=== PATIENT | female | born 1960 | race Caucasian/White ===

== ENCOUNTER 2016-05-30 06:21 | Emergency (ER) | payer BC ==
[~2016-05-30] VITALS: Ht 170.2 cm; Wt 116.1 kg
[~2016-05-30 06:21] MED LIST: ATOR10TA88 PO; OMEP40CA PO; PROP80TA2 PO; PXL/10 PO; SUMA20SP; SUMA50TA15 PO
[2016-05-30 06:28] VITALS: TEMP 36.4; Ht 170.2 cm; Wt 116.1 kg
[2016-05-30] MEDS ORDERED: INDSR80 PO (06:53)
[2016-05-30] MEDS ORDERED: OMEP40CA41 PO (06:53)
[2016-05-30] MEDS ORDERED: PXL20 PO (06:53)
[2016-05-30] MEDS ORDERED: SODIUM CHLORIDE 0.9% 1000ML 1,000 ML IV STA (06:55)
[2016-05-30] MEDS ORDERED: DiphenhydrAMINE HCL 50 MG/ML VIAL IV STA (06:55)
[2016-05-30] MEDS ORDERED: KETOROLAC TROMETHAMINE 30 MG/ML VIAL IV STA (06:55)
[2016-05-30] MEDS ORDERED: PROCHLORPERAZINE 5 MG/ML 2 ML VIAL IV STA (06:55)
--- NOTE | 2016-05-30 07:12 | EMERGENCY ROOM VISIT NOTE ---
History Report prepared by Scribe: Hawa Neumann Under the Supervision of: Dr. Nedra Brantley M.D. First contact with patient: 06:45 Chief Complaint: HEADACHE Stated Complaint: MIGRAINE, VOMITING History of Present Illness The patient is a 56 year old female who presents to the Emergency Room with complaints of a persistent migraine headache that began early this morning. It woke her up from her sleep. The pain is located through the sides of her head and up the back of her head. She notes that she is photophobic. She also complains of neck pain with movement, nausea, and vomiting. She started to vomit about 3 hours ago. The patient has a history of migraines and her current symptoms feel like previous migraines. She was in the emergency room with a migraine in September 2013 and states that this was her last migraine before today, although she has had a few headaches since then. She has migraine medications at home but did not take anything today due to her vomiting. Denies fevers or other complaints. Source of History: patient Onset: this morning Position: head Quality: other (migraine) Timing: other (persistent) Modifying Factors (Worsening): other (light exposure) Associated Symptoms: + nausea, + neck pain, + vomiting, No fevers Review of Systems See HPI for pertinent positives & negatives. A total of 10 systems reviewed and were otherwise negative. Past Medical & Surgical Medical Problems: (1) Atrial fibrillation Surgical Problems: (1) Hx of cholecystectomy Family History FH: [place] (myocardial infarction) FH: heart disease Social History Smoking Status: Never Smoker Alcohol Use: occasionally Drug Use: none Marital Status: single Housing Status: lives alone Occupation Status: employed Current/Historical Medications Scheduled Atorvastatin (Lipitor), 10 MG PO DAILY Omeprazole (Prilosec), 40 MG PO QPM Paroxetine (Paroxetine HCl), 20 MG PO DAILY Propranolol HCl (Propranolol HCl ER), 80 MG PO QPM Scheduled PRN Sumatriptan Succinate (Imitrex), 50 MG PO UD PRN for Migraine Allergies Coded Allergies: Morphine (Unverified Allergy, Intermediate, GI SYMPTOMS, 05/30/16) Penicillins (Verified Allergy, Unknown, BLEED AND VOMITED, 05/30/16) Physical Exam Vital Signs Date Time Temp Pulse Resp B/P Pulse Ox O2 Delivery O2 Flow Rate FiO2 05/30/16 08:53 90 16 109/68 99 Room Air 05/30/16 07:40 70 16 130/87 100 Nasal Cannula 2.0 05/30/16 07:31 97 Room Air 05/30/16 07:31 100 Nasal Cannula 2.0 05/30/16 07:19 68 05/30/16 07:17 68 16 142/76 97 Room Air 05/30/16 07:16 97 Room Air 05/30/16 06:28 36.4 72 18 141/81 98 Room Air Physical Exam Vital signs reviewed. General: Well-appearing 56 year old female, in some discomfort HEENT: No scleral icterus, PERRLA, neck supple. Atraumatic. Cardiovascular: Regular rate and rhythm, no extra sounds. Pulmonary: Clear to auscultation bilaterally, normal work of breathing. Abdomen: Soft, nontender, nondistended, positive bowel sounds. Musculoskeletal: Atraumatic, no peripheral edema. Neurologic: Patient awake alert and oriented x 3, full strength in all 4 extremities. Cranial nerves 2 through 12 grossly intact. Skin: Warm, dry, no rash Medical Decision & Procedures ER Provider Diagnostic Interpretation: Radiology results as stated below per my review and radiologist interpretation: CT SCAN OF THE BRAIN WITHOUT IV CONTRAST CLINICAL HISTORY: Headache. COMPARISON STUDY: CT of the brain dated 11/10/2008. TECHNIQUE: Unenhanced axial CT scan of the brain is performed from the vertex to the skull base. Automated dose control exposure was utilized. CT DOSE: 614.27 mGy.cm FINDINGS: Brain parenchyma: The brain parenchyma is normal in appearance. There is no hemorrhage, mass effect, or evidence of acute territorial ischemia by CT criteria. King-white matter is preserved. No extra-axial fluid collection is seen. Ventricles, sulci, cisterns: Normal in configuration. Intracranial vasculature: The visualized intracranial vasculature at the skull base is normal in appearance. Calvarium: Unremarkable. Sinuses and mastoids: There is trace mucosal thickening in the right maxillary antrum. The remaining visualized paranasal sinuses are clear. The mastoid air cells are well pneumatized. Orbits: The bony orbits are grossly intact. IMPRESSION: No acute intracranial abnormality. Electronically signed by: Ritchie Ruth M.D. 05/30/2016 7:53 AM Dictated Date/Time: 05/30/2016 7:51 AM Laboratory Results 05/30/16 07:11 Red Blood Count 4.30, Mean Corpuscular Volume 81.9, Mean Corpuscular Hemoglobin 26.0, Mean Corpuscular Hemoglobin Concent 31.8, Mean Platelet Volume 10.2, Neutrophils (%) (Auto) 73.0, Lymphocytes (%) (Auto) 20.0, Monocytes (%) (Auto) 5.0, Eosinophils (%) (Auto) 1.5, Basophils (%) (Auto) 0.4, Neutrophils # (Auto) 5.28, Lymphocytes # (Auto) 1.45, Monocytes # (Auto) 0.36, Eosinophils # (Auto) 0.11, Basophils # (Auto) 0.03 05/30/16 07:11 Test 05/30/16 07:11 White Blood Count 7.24 K/uL (4.8-10.8) Red Blood Count 4.30 M/uL (4.2-5.4) Hemoglobin 11.2 g/dL (12.0-16.0) Hematocrit 35.2 % (37-47) Mean Corpuscular Volume 81.9 fL (80-100) Mean Corpuscular Hemoglobin 26.0 pg (25-34) Mean Corpuscular Hemoglobin Concent 31.8 g/dl (32-36) Platelet Count 277 K/uL (130-400) Mean Platelet Volume 10.2 fL (7.4-10.4) Neutrophils (%) (Auto) 73.0 % Lymphocytes (%) (Auto) 20.0 % Monocytes (%) (Auto) 5.0 % Eosinophils (%) (Auto) 1.5 % Basophils (%) (Auto) 0.4 % Neutrophils # (Auto) 5.28 K/uL (1.4-6.5) Lymphocytes # (Auto) 1.45 K/uL (1.2-3.4) Monocytes # (Auto) 0.36 K/uL (0.11-0.59) Eosinophils # (Auto) 0.11 K/uL (0-0.5) Basophils # (Auto) 0.03 K/uL (0-0.2) RDW Standard Deviation 46.7 fL (36.4-46.3) RDW Coefficient of Variation 15.7 % (11.5-14.5) Immature Granulocyte % (Auto) 0.1 % Immature Granulocyte # (Auto) 0.01 K/uL (0.00-0.02) Anion Gap 9.0 mmol/L (3-11) Est Creatinine Clear Calc Drug Dose 91.1 ml/min Estimated GFR () 80.8 Estimated GFR (Non- 69.7 BUN/Creatinine Ratio 12.4 (10-20) Calcium Level 9.2 mg/dl (8.5-10.1) Total Bilirubin 0.3 mg/dl (0.2-1) Direct Bilirubin < 0.1 mg/dl (0-0.2) Aspartate Amino Transf (AST/SGOT) 24 U/L (15-37) Alanine Aminotransferase (ALT/SGPT) 39 U/L (12-78) Alkaline Phosphatase 90 U/L (45-117) Total Protein 7.9 gm/dl (6.4-8.2) Albumin 3.5 gm/dl (3.4-5.0) Lipase 115 U/L (73-393) Laboratory results per my review. Medications Administered Medications (Trade) Dose Ordered Sig/Katya Route Start Time Stop Time Status Last Admin Dose Admin Prochlorperazine Edisylate (Compazine Inj) 10 mg NOW STAT IV 05/30/16 06:55 05/30/16 06:57 DC 05/30/16 07:14 10 MG Ketorolac Tromethamine (Toradol Inj) 30 mg NOW STAT IV 05/30/16 06:55 05/30/16 06:57 DC 05/30/16 07:15 30 MG Diphenhydramine HCl 25 mg 25 mg NOW STAT IV 05/30/16 06:55 05/30/16 06:57 DC 05/30/16 07:15 25 MG Sodium Chloride (Nss 1000ml) 1,000 ml @ 999 mls/hr Q1H1M STAT IV 05/30/16 06:55 05/30/16 07:55 DC 05/30/16 07:14 999 MLS/HR ED Course 0655: Past medical records reviewed. The patient was evaluated in room B10. A complete history and physical examination was performed. Ordered NSS 1000 ml @ 999 mls/hr IV, Benadryl Inj 25 mg IV, Toradol Inj 30 mg IV, Compazine Inj 10 mg IV. 0850: Upon reevaluation, the patient appeared to have improvement of her symptoms. I discussed findings with the patient. She verbalized agreement of the treatment plan. The patient was discharged home. Medical Decision Headache: Intracranial hemorrhage, intracranial mass, migraine headache, tension headache , sinusitis, meningitis This patient was evaluated and appeared to be in no significant distress. IV access was obtained and laboratory work was drawn. The patient was placed on the cardiac cath lab manager and found to be in a normal sinus rhythm. She was medicated with IV Compazine, IV Benadryl and IV Toradol. Patient was hydrated with normal saline solution. Laboratory work is unrevealing. The patient had significant resolution of her discomfort. CT imaging was performed as the patient has not had a headache in many years and no imaging of the brain recently. This study is negative. She was advised to follow-up with her primary care physician for further management and to return to the ER for worsening of symptoms or any medical concerns. Impression Primary Impression: Headache, migraine Scribe Attestation The scribe's documentation has been prepared under my direction and personally reviewed by me in its entirety. I confirm that the note above accurately reflects all work, treatment, procedures, and medical decision making performed by me. Departure Information Dispostion Home / Self-Care Referrals Angie Nj M.D. (PCP) Patient Instructions My [facility] Additional Instructions Diagnosis: Migraine headache Continue medications as prescribed. If headache recurs. Drink plenty of clear fluids and rest today. Follow-up with your doctor this week for reevaluation. Return to the ER for worsening of symptoms or any medical concerns. Problem Qualifiers Primary Impression: Headache, migraine Migraine type: unspecified Status migrainosus presence: without status migrainosus Intractability: not intractable Qualified Codes: G43.909 - Migraine, unspecified, not intractable, without status migrainosus
[2016-05-30 07:21] LABS: BASO % 0.4 %; BASO ABS # 0.03 K/uL (0-0.2); COMPLETE YES; EOS % 1.5 %; HEMATOCRIT 35.2 % (37-47); IG% 0.1 %; LYMPH ABS # 1.45 K/uL (1.2-3.4); MEAN CELL VOLUME 81.9 fL (80-100); MEAN CORPUSCULAR HGB CONC 31.8 g/dl (32-36); MEAN PLATELET VOLUME 10.2 fL (7.4-10.4); PLATELET COUNT 277 K/uL (130-400); WHITE BLOOD COUNT 7.24 K/uL (4.8-10.8)
[2016-05-30 07:31] VITALS: O2SAT 100
[2016-05-30 07:40] LABS: ALT/SGPT 39 U/L (12-78); AST/SGOT 24 U/L (15-37); BLOOD UREA NITROGEN 12 mg/dl (7-18); BUN/CREATININE RATIO 12.4 (10-20); CALCIUM 9.2 mg/dl (8.5-10.1); CARBON DIOXIDE 25 mmol/L (21-32); CHLORIDE 108 mmol/L (98-107); CREATININE 0.93 mg/dl (0.60-1.20); GLUCOSE 118 mg/dl (70-99); POTASSIUM 4.2 mmol/L (3.5-5.1); SODIUM 142 mmol/L (136-145)
[2016-05-30 07:42] LABS: ALKALINE PHOSPHATASE 90 U/L (45-117)
--- NOTE | 2016-05-30 07:55 | DIAGNOSTIC IMAGING REPORT ---
CT SCAN OF THE BRAIN WITHOUT IV CONTRAST CLINICAL HISTORY: Headache. COMPARISON STUDY: CT of the brain dated 11/10/2008. TECHNIQUE: Unenhanced axial CT scan of the brain is performed from the vertex to the skull base. Automated dose control exposure was utilized. CT DOSE: 614.27 mGy.cm FINDINGS: Brain parenchyma: The brain parenchyma is normal in appearance. There is no hemorrhage, mass effect, or evidence of acute territorial ischemia by CT criteria. King-white matter is preserved. No extra-axial fluid collection is seen. Ventricles, sulci, cisterns: Normal in configuration. Intracranial vasculature: The visualized intracranial vasculature at the skull base is normal in appearance. Calvarium: Unremarkable. Sinuses and mastoids: There is trace mucosal thickening in the right maxillary antrum. The remaining visualized paranasal sinuses are clear. The mastoid air cells are well pneumatized. Orbits: The bony orbits are grossly intact. IMPRESSION: No acute intracranial abnormality. Electronically signed by: Ritchie Ruth M.D. 05/30/2016 7:53 AM Dictated Date/Time: 05/30/2016 7:51 AM
[2016-05-30 08:53] VITALS: BP 109/68; PULSE 90; O2SAT 99
== END 2016-05-30 09:04 | disposition home or self-care (01) ==
LOC: C.EDB 06:24
DX: G43.909 Migraine, unspecified, not intractable, without status migrainosus (principal); I48.91 Unspecified atrial fibrillation; Z90.49 Acquired absence of other specified parts of digestive tract

== ENCOUNTER 2016-08-31 02:23 | Observation (INO) | payer BC ==
[~2016-08-31] VITALS: Ht 170.2 cm; Wt 115.0 kg
[2016-08-31] VITALS (12 sets, daily range): BP systolic 96–128; BP diastolic 52–81; PULSE 62–121; TEMP 36.5–37; O2SAT 95–98; Ht 170.2 cm; Wt 115.0 kg
[~2016-08-31 02:23] MED LIST changes: +ATOR10TA82 PO; -ATOR10TA88 PO; +INDSR80 PO; -OMEP40CA PO; +OMEP40CA41 PO; -PROP80TA2 PO; -PXL/10 PO; +PXL20 PO; -SUMA20SP
[2016-08-31] MEDS ORDERED: SODIUM CHLORIDE 0.9% 1000ML 1,000 ML IV ONE (02:45)
[2016-08-31 02:49] LABS: BASO % 0.9 %; BASO ABS # 0.05 K/uL (0-0.2); COMPLETE YES; EOS % 2.2 %; HEMATOCRIT 35.1 % (37-47); LYMPH % 26.1 %; LYMPH ABS # 1.45 K/uL (1.2-3.4); MEAN CELL VOLUME 84.2 fL (80-100); MEAN CORPUSCULAR HEMOGLOBIN 25.9 pg (25-34); MEAN CORPUSCULAR HGB CONC 30.8 g/dl (32-36); MEAN PLATELET VOLUME 10.3 fL (7.4-10.4); MONO % 5.9 %; NEUT % 64.9 %; PLATELET COUNT 327 K/uL (130-400); RED BLOOD COUNT 4.17 M/uL (4.2-5.4); WHITE BLOOD COUNT 5.55 K/uL (4.8-10.8)
[2016-08-31 03:07] LABS: PROTHROMBIN TIME (PATIENT) 10.3 SECONDS (9.0-12.0)
[2016-08-31 03:10] LABS: ALT/SGPT 84 U/L (12-78); AST/SGOT 70 U/L (15-37); BLOOD UREA NITROGEN 8 mg/dl (7-18); BUN/CREATININE RATIO 9.2 (10-20); CALCIUM 9.2 mg/dl (8.5-10.1); CARBON DIOXIDE 27 mmol/L (21-32); CHLORIDE 107 mmol/L (98-107); CREATININE 0.92 mg/dl (0.60-1.20); GLUCOSE 98 mg/dl (70-99); MAGNESIUM 2.4 mg/dl (1.8-2.4); SODIUM 143 mmol/L (136-145)
[2016-08-31] MEDS ORDERED: ASPIRIN 324 MG CHEW PO STA (03:20)
[2016-08-31 03:22] LABS: ALB/GLOB RATIO 0.7 (0.9-2); ALKALINE PHOSPHATASE 105 U/L (45-117); CKMB/CK RATIO 1.2 (0-3.0)
[2016-08-31] MEDS ORDERED: ONDANSETRON INJ 2 MG/ML 2 ML VIAL IV STA (03:29)
[2016-08-31] MEDS ORDERED: NITROGLYCERIN OINT 2% 1GM PACKET EXT ONE (03:30)
[2016-08-31] MEDS ORDERED: OPTIRAY 320 IV PRN (03:45)
[2016-08-31 04:16] LABS: URINE APPEARANCE CLEAR (CLEAR); URINE BILIRUBIN NEG (NEG); URINE COLOR YELLOW; URINE EPITHELIAL CELL AUTO >30 /lpf (0-5); URINE NITRITE NEG (NEG); URINE SPECIFIC GRAVITY 1.014 (1.000-1.030); UROBILINOGEN NEG (NEG); ZZUR CULT IF INDIC CLEAN CATCH NO
[2016-08-31 04:30] LABS: MANUAL MICROSCOPIC REQUIRED? NO; REVIEW REQ? NO
[2016-08-31] MEDS ORDERED: KETOROLAC TROMETHAMINE 30 MG/ML VIAL IV STA (04:46)
[2016-08-31] MEDS ORDERED: TRAMADOL HCL 50 MG TAB PO PRN (05:45)
[2016-08-31] MEDS ORDERED: LORAZEPAM 2 MG/ML 1 ML VIAL IV PRN (05:45)
[2016-08-31] MEDS ORDERED: HYDROmorphone INJ 1 MG/ML SYR IV PRN (05:45)
[2016-08-31] MEDS ORDERED: SODIUM CHLORIDE 0.65% NA SOLN 45 ML (OCEAN) PRN (05:45)
[2016-08-31] MEDS ORDERED: ACETAMINOPHEN 325 MG TAB PO PRN (05:45)
[2016-08-31] MEDS ORDERED: PANTOprazole SOD 40 MG TAB PO STA (05:55)
[2016-08-31] MEDS ORDERED: ACETAMINOPHEN 325 MG TAB PO STA (05:58)
[2016-08-31] MEDS ORDERED: IV FLUIDS COMPLETED PRN (06:30)
--- NOTE | 2016-08-31 06:30 | EMERGENCY ROOM VISIT NOTE ---
History First contact with patient: 02:25 Chief Complaint: CHEST PAIN Stated Complaint: CHEST PAIN Nursing Triage Summary: Chest pain in chest but now is just in the center of her back between shoulders. History of Present Illness The patient is a 56 year old female who presents to the Emergency Room with complaints of chest pain that began in her central and left-sided chest that is radiating to her shoulders. The patient states that her symptoms have been off and on for the past few days. She has not had fever or chills. No shortness of breath. The patient does not have a history of cardiac disease, but states that her father had a heart attack in his 40s. The patient is not diabetic but does have a history of dyslipidemia. She initially thought her symptoms may have been musculoskeletal in nature, and she describes it as a tightness. Her current discomfort is rated a 6/10. She has not taken anything over-the- counter for her discomfort. She has not had similar symptoms in the past. No recent travel history. Review of Systems More than 10 systems were reviewed and otherwise negative with the exception of history of present illness. Past Medical/Surgical History Medical Problems: (1) Atrial fibrillation (2) Chest pain Surgical Problems: (1) Hx of cholecystectomy Family History FH: [place] (myocardial infarction) FH: heart disease Social History Smoking Status: Never Smoker Alcohol Use: occasionally Drug Use: none Marital Status: single Housing Status: lives alone Occupation Status: employed Current/Historical Medications Scheduled Atorvastatin (Lipitor), 10 MG PO DAILY Omeprazole (Prilosec), 40 MG PO QPM Paroxetine (Paroxetine HCl), 20 MG PO DAILY Propranolol HCl (Propranolol HCl ER), 80 MG PO QPM Scheduled PRN Sumatriptan Succinate (Imitrex), 50 MG PO UD PRN for Migraine Allergies Coded Allergies: Morphine (Unverified Allergy, Intermediate, GI SYMPTOMS, 05/30/16) Penicillins (Verified Allergy, Unknown, BLEED AND VOMITED, 05/30/16) Physical Exam Vital Signs Date Time Temp Pulse Resp B/P (MAP) Pulse Ox O2 Delivery O2 Flow Rate FiO2 08/31/16 05:08 98 17 96 08/31/16 05:03 82 13 94 08/31/16 05:01 105/64 08/31/16 04:58 100 12 95 08/31/16 04:53 93 12 95 08/31/16 04:48 95 13 94 08/31/16 04:43 96 16 96 08/31/16 04:38 102 14 96 08/31/16 04:33 76 12 93 08/31/16 04:32 126/56 08/31/16 04:28 82 20 92 08/31/16 04:23 92 14 96 08/31/16 04:18 103 13 94 08/31/16 04:13 105 14 95 08/31/16 04:08 98 12 95 08/31/16 04:03 100 15 96 08/31/16 04:02 122/60 08/31/16 03:38 98 16 96 08/31/16 03:33 98 15 96 08/31/16 03:32 130/77 08/31/16 03:29 146/84 08/31/16 03:28 104 13 96 08/31/16 03:23 98 13 97 08/31/16 03:18 97 16 134/75 95 08/31/16 02:43 94 12 97 08/31/16 02:40 86 08/31/16 02:40 97 Room Air 08/31/16 02:38 91 14 97 08/31/16 02:34 37.0 83 18 127/92 97 Room Air 08/31/16 02:31 127/92 Pain Rating (0-10): 3.0 Physical Exam VITALS: Vitals are noted on the nurse's note and reviewed by myself. Vital signs stable. GENERAL: Well-developed, well-nourished, white female, who is in no acute distress and resting comfortably. Patient is cooperative with the examination. HEAD: Normocephalic atraumatic. NECK: Supple without nuchal rigidity. No lymphadenopathy. No thyromegaly. Cervical spine is nontender. HEART: Regular rate and rhythm without murmurs gallops or rubs. LUNGS: Clear to auscultation bilaterally without wheezes, rales or rhonchi. No retractions or accessory muscle use. ABDOMEN: Positive normal bowel sounds x 4. Soft, nontender, without masses or organomegaly. No guarding or rebound tenderness. MUSCULOSKELETAL: No muscle atrophy, erythema, or edema noted. Full range of motion without joint tenderness in all extremities. Medical Decision & Procedures ER Provider Diagnostic Interpretation: Preliminary Findings Only See Final Report For Complete Findings CTA CHEST: No evidence of acute pulmonary embolism. Thoracic aorta and main pulmonary artery normal in caliber. Mild cardiomegaly without pericardial effusion. Small hiatal hernia. No adenopathy. No airspace consolidation, pleural effusion, or pneumothorax. Minimal scarring/ subsegmental atelectasis in the lingula. Visualized upper abdomen demonstrates previous cholecystectomy. No acute osseous findings. Laboratory Results 08/31/16 02:02 Red Blood Count 4.17, Mean Corpuscular Volume 84.2, Mean Corpuscular Hemoglobin 25.9, Mean Corpuscular Hemoglobin Concent 30.8, Mean Platelet Volume 10.3, Neutrophils (%) (Auto) 64.9, Lymphocytes (%) (Auto) 26.1, Monocytes (%) (Auto) 5.9, Eosinophils (%) (Auto) 2.2, Basophils (%) (Auto) 0.9, Neutrophils # (Auto) 3.60, Lymphocytes # (Auto) 1.45, Monocytes # (Auto) 0.33, Eosinophils # (Auto) 0.12, Basophils # (Auto) 0.05 08/31/16 02:02 Test 08/31/16 02:02 08/31/16 04:00 White Blood Count 5.55 K/uL (4.8-10.8) Red Blood Count 4.17 M/uL (4.2-5.4) Hemoglobin 10.8 g/dL (12.0-16.0) Hematocrit 35.1 % (37-47) Mean Corpuscular Volume 84.2 fL (80-100) Mean Corpuscular Hemoglobin 25.9 pg (25-34) Mean Corpuscular Hemoglobin Concent 30.8 g/dl (32-36) Platelet Count 327 K/uL (130-400) Mean Platelet Volume 10.3 fL (7.4-10.4) Neutrophils (%) (Auto) 64.9 % Lymphocytes (%) (Auto) 26.1 % Monocytes (%) (Auto) 5.9 % Eosinophils (%) (Auto) 2.2 % Basophils (%) (Auto) 0.9 % Neutrophils # (Auto) 3.60 K/uL (1.4-6.5) Lymphocytes # (Auto) 1.45 K/uL (1.2-3.4) Monocytes # (Auto) 0.33 K/uL (0.11-0.59) Eosinophils # (Auto) 0.12 K/uL (0-0.5) Basophils # (Auto) 0.05 K/uL (0-0.2) RDW Standard Deviation 50.2 fL (36.4-46.3) RDW Coefficient of Variation 16.4 % (11.5-14.5) Immature Granulocyte % (Auto) 0.0 % Immature Granulocyte # (Auto) 0.00 K/uL (0.00-0.02) Prothrombin Time 10.3 SECONDS (9.0-12.0) Prothromb Time International Ratio 1.0 (0.9-1.1) Activated Partial Thromboplast Time 25.8 SECONDS (21.0-31.0) Partial Thromboplastin Ratio 1.0 D-Dimer 610 ug/L FEU (0-500) Anion Gap 9.0 mmol/L (3-11) Est Creatinine Clear Calc Drug Dose 92.0 ml/min Estimated GFR () 81.8 Estimated GFR (Non- 70.6 BUN/Creatinine Ratio 9.2 (10-20) Calcium Level 9.2 mg/dl (8.5-10.1) Magnesium Level 2.4 mg/dl (1.8-2.4) Total Bilirubin 0.2 mg/dl (0.2-1) Aspartate Amino Transf (AST/SGOT) 70 U/L (15-37) Alanine Aminotransferase (ALT/SGPT) 84 U/L (12-78) Alkaline Phosphatase 105 U/L (45-117) Total Creatine Kinase 155 U/L (26-192) Creatine Kinase MB 1.8 ng/ml (0.5-3.6) Creatine Kinase MB Ratio 1.2 (0-3.0) Total Protein 8.2 gm/dl (6.4-8.2) Albumin 3.5 gm/dl (3.4-5.0) Globulin 4.7 gm/dl (2.5-4.0) Albumin/Globulin Ratio 0.7 (0.9-2) Lipase 117 U/L (73-393) Thyroid Stimulating Hormone (TSH) 4.290 uIu/ml (0.300-4.500) Chemistry Specimen Hemolysis Urine Color YELLOW Urine Appearance CLEAR (CLEAR) Urine pH 8.0 (4.5-7.5) Urine Specific [place] 1.014 (1.000-1.030) Urine Protein NEG (NEG) Urine Glucose (UA) NEG (NEG) Urine Ketones NEG (NEG) Urine Occult Blood NEG (NEG) Urine Nitrite NEG (NEG) Urine Bilirubin NEG (NEG) Urine Urobilinogen NEG (NEG) Urine Leukocyte Esterase TRACE (NEG) Urine WBC (Auto) 1-5 /hpf (0-5) Urine RBC (Auto) 0-4 /hpf (0-4) Urine Hyaline Casts (Auto) 1-5 /lpf (0-5) Urine Epithelial Cells (Auto) >30 /lpf (0-5) Urine Bacteria (Auto) NEG (NEG) Medications Administered Medications (Trade) Dose Ordered Sig/Katya Route Start Time Stop Time Status Last Admin Dose Admin Sodium Chloride 1,000 ml @ 999 mls/hr Q1H1M ONCE IV 08/31/16 02:45 08/31/16 03:45 DC 08/31/16 02:44 999 MLS/HR Aspirin (Aspirin Chew) 324 mg NOW STAT PO 08/31/16 03:20 08/31/16 03:21 DC 08/31/16 03:28 324 MG Nitroglycerin (Nitroglycerin 2% Oint) 1 inch NOW ONCE EXT 08/31/16 03:30 08/31/16 03:31 DC 08/31/16 03:28 1 INCH Ondansetron HCl (Zofran Inj) 4 mg NOW STAT IV 08/31/16 03:29 08/31/16 03:30 DC 08/31/16 03:35 4 MG Ketorolac Tromethamine (Toradol Inj) 30 mg NOW STAT IV 08/31/16 04:46 08/31/16 04:47 DC 08/31/16 05:11 30 MG ED Course Physical exam and history were performed. Nursing notes and EMR were reviewed. Patient appears to have vague chest pain and tightness that is radiating between her shoulder blades. She has a very strong family history of cardiac disease. EKG was performed and was normal sinus rhythm without acute ST elevation. IV access was established and labs were obtained. The patient was hydrated with normal saline. On my initial presentation her pain had resolved was rated a 0/10. The patient's blood work is as above and was reviewed. She does not have a significantly elevated white blood cell count, gross anemia, bandemia, or significant electrolyte imbalance. Lipase and transaminases are nondiagnostic, although her transaminases are slightly elevated of unknown significance. The patient's troponin 1 is negative. D-dimer was elevated. CT scan of the chest was performed to rule out pulmonary embolism, and CT scan does not show acute findings. The patient did have a return of her chest pain while here in the department and nursing did perform a repeat EKG. This is slightly different from her initial EKG, and raises my concern for possible cardiac etiology of her chest pain. I did give the patient aspirin and Nitropaste after this, and these did resolve her symptoms. The case was discussed with the on-call hospitalist who agreed to evaluate the patient here in the department. Please see their dictation for patient course, plan, and disposition. The chart was completed utilizing [employer] Speech Voice Recognition Software. Grammatical errors, random word insertions, pronoun errors, and incomplete sentences are an occasional consequence of this system due to software limitations, ambient noise, and hardware issues. Any formal questions or concerns about the content, text, or information contained within the body of this dictation should be directly addressed to the provider for clarification. . Medical Decision Differential diagnosis includes, but is not limited to: Myocardial infarction, dysrhythmia, pericarditis, pneumothorax, aortic aneurysm/dissection, DVT/PE, anxiety, GERD, PUD, electrolyte imbalance, thyroid disorder, pneumonia, bronchitis, pancreatitis, and others Impression Primary Impression: Chest pain Departure Information Dispostion Still a Patient Referrals Angie Nj M.D. (PCP) Forms HOME CARE DOCUMENTATION FORM, IMPORTANT VISIT INFORMATION Patient Instructions My [facility]
[2016-08-31] MEDS: SODIUM CHLORIDE 0.45% 1000ML 1,000 ML IV SCH (06:31)
--- NOTE | 2016-08-31 06:45 | HISTORY & PHYSICAL EXAMINATION ---
DATE OF ADMISSION: 08/31/2016 PRIMARY CARE PHYSICIAN: Dr. Nj. CHIEF COMPLAINT: Chest pain. HISTORY OF PRESENT ILLNESS: Hx obtained from px and records. Medical history significant for situational HTN, migraine, chronic anemia ( baseline hemoglobin 10-11), GERD, hyperlipidemia. Patient was at work last night at the [employer] when she experienced epigastric discomfort, burning going up her chest and her back w/ some shortness of breath. Similar to heartburn symptoms. Subsequent emesis and nasal congestion. Good BM. Pain not worse w/ motion. Patient has been missing her home nighttime PPI since she shifted to night work since her mom moved in with her the last few months. Some stress from change. When she got home, she became more anxious, sweaty, increased discomfort. At the Emergency Room some relief with aspirin and nitro. MEDICAL HISTORY: Patient had an outpatient stress test in October 2015, exercise capacity below average. EGD 2016 showed some hiatal hernia and some gastritis. Colonoscopy in 2014, normal. abd US 2009 : fatty liver SURGERIES: Cholecystectomy. HOME MEDICATIONS: Include atorvastatin, paroxetine, omeprazole, sumatriptan, ALLERGIES: AMOXICILLIN, DARVOCET, MORPHINE. FAMILY HISTORY: Heart disease. PERSONAL AND SOCIAL HISTORY: Nonsmoker, no ETOH intake, [employer] employee. REVIEW OF SYSTEMS: As per HPI, all other ROS negative. PHYSICAL EXAMINATION: VITAL SIGNS: Blood pressure was noted to be 127/70, pulse rate 70 RR 18 T 37 O2sats 97% on room air. GENERAL: Obese, slightly anxious, hyponasal voice. SKIN: Pallor. HEENT : pale palp conjunctivae, dry mucosa. NECK: Short. LUNGS: Decreased breath sounds. HEART: Regular rate and rhythm. ABDOMEN: Epigastric tenderness. EXTREMITIES: min LE edema, no tenderness. NEUROLOGIC: No gross focality. LABS: Hemoglobin 10.8, white cell 5.5, platelets 237. Sodium 140, potassium 4, chloride 107, CO2 of 27, BUN 8, creatinine 0.9, glucose 90. AST 70, ALT 84. EKG as per my interpretation : normal sinus rhythm, rate 90, T-wave flattening in some leads. CT chest, no PE. ASSESSMENT: 1. Atypical chest pain likely from GERD, missed home PPI night doses given recent change to nightshift work ro biliary etio for symptoms w/ abn LFTS (epigastric pain going to the chest and and back; hx fatty liver on outpx US 2009) ? retained gallstones ro acute coronary syndrome. 2. Hyperlipidemia on statin therapy. 3. Chronic anemia, hemoglobin at baseline. PLAN: Observation PCU pharmacologic stress test in the morning if next troponin and biliary US normal. (suboptimal outpx exercise stress echo 2015) Aspirin for CAD prevention until ACS ruled out. facilitate home PPI ([px advised to change to AM dosing from hereon to facilitate compliance given new work sked) DVT prophylaxis with Lovenox subQ. Full code. MTDD
--- NOTE | 2016-08-31 06:59 | DIAGNOSTIC IMAGING REPORT ---
CT ANGIOGRAPHY OF THE CHEST, PULMONARY EMBOLUS PROTOCOL CLINICAL HISTORY: Chest pain and elevated d-dimer. COMPARISON STUDY: Chest radiograph August 31, 2016. TECHNIQUE: Following IV administration of 91 mL of Optiray-320, helical axial images of the chest were obtained utilizing the pulmonary embolus protocol. Maximal intensity projections and sagittal and coronal reformats were viewed on an independent 3D workstation. IV contrast was administered without complication. CT DOSE: 661.43 mGy.cm FINDINGS: No pulmonary emboli are identified. The heart is mildly enlarged. There is no evidence of thoracic aortic dissection. There is no pericardial effusion. No enlarged axillary, mediastinal or hilar lymph nodes are present. There is no pneumomediastinum. There is no consolidation to suggest pneumonia. Lingular and right middle lobe opacity reflects atelectasis. Bony thorax is unremarkable as is the upper abdomen. The gallbladder is surgically absent. IMPRESSION: 1. No pulmonary emboli identified. 2. No acute intrathoracic findings. 3. Mild cardiomegaly. Electronically signed by: Arnaldo Dawson M.D. 08/31/2016 6:58 AM Dictated Date/Time: 08/31/2016 6:53 AM
--- NOTE | 2016-08-31 07:04 | DIAGNOSTIC IMAGING REPORT ---
CHEST 2 VIEWS ROUTINE CLINICAL HISTORY: Mid chest pain. COMPARISON STUDY: Chest radiograph November 02, 2015. FINDINGS: There is no pneumothorax or pleural effusion. Linear left lower lung opacity suggests atelectasis. There is no evidence of pulmonary edema. Borderline cardiomegaly is noted. There are cholecystectomy clips. There is no consolidation to suggest pneumonia. IMPRESSION: No acute cardiopulmonary findings. Electronically signed by: Arnaldo Dawson M.D. 08/31/2016 7:02 AM Dictated Date/Time: 08/31/2016 7:02 AM
[2016-08-31 07:32] LABS: CHOLESTEROL 177 mg/dl (0-200); CHOLESTEROL/HDL RATIO 3.6; HDL CHOLESTEROL 49 mg/dl; LDL CHOLESTEROL CALCULATED 117 mg/dl; TRIGLYCERIDES 53 mg/dl (0-150); VERY LOW DENSITY LIPOPROT CALC 11 mg/dl
[2016-08-31] MEDS ORDERED: ENOXAPARIN 40 MG/0.4 ML SYR SC SCH (09:00)
[2016-08-31] MEDS: ATORVASTATIN 10 MG TAB PO SCH (09:00)
--- NOTE | 2016-08-31 09:32 | DIAGNOSTIC IMAGING REPORT ---
ABDOMINAL ULTRASOUND, RIGHT UPPER QUADRANT HISTORY: Generalized abdominal pain.. COMPARISON: Abdomen and pelvis CT 09/24/2009. FINDINGS: Pancreas: The pancreas demonstrates a normal echotexture. Liver: Unremarkable. Gallbladder: The gallbladder is surgically absent. CBD: 6 mm. Right kidney: No hydronephrosis. IMPRESSION: No significant abnormality identified within the right upper quadrant. Cholecystectomy. Electronically signed by: Jamie De La Garza M.D. 08/31/2016 9:30 AM Dictated Date/Time: 08/31/2016 9:25 AM
--- NOTE | 2016-08-31 12:31 | Discharge Instructions ---
Discharge Instructions Date of Service Aug 31, 2016. Admission Reason for Admission: Chest Pain Discharge Discharge Diagnosis / Problem: CHEST PAIN Discharge Goals Goal(s): Decrease discomfort, Diagnostic testing, Therapeutic intervention Activity Recommendations Activity Limitations: resume your previous activity . Instructions / Follow-Up Instructions / Follow-Up HOSPITAL FOLLOW UP : 09/06/2016 @ 11:[address] Angie Nj MD Family [facility] Current Hospital Diet Patient's current hospital diet: Discharge Diet Recommended Diet: AHA Diet (Heart Healthy), Low Fat Diet Pending Studies Studies pending at discharge: no Laboratory Results Lipid Panel Test 08/31/16 06:38 Range/Units Triglycerides Level 53 0-150 mg/dl Cholesterol Level 177 0-200 mg/dl HDL Cholesterol 49 mg/dl Cholesterol/HDL Ratio 3.6 LDL Cholesterol, Calculated 117 mg/dl Medical Emergencies . Who to Call and When: Medical Emergencies: If at any time you feel your situation is an emergency, please call 911 immediately. . Non-Emergent Contact Non-Emergency issues call your: Primary Care Provider . . "Provider Documentation" section prepared by Ellyn Herbert. . VTE Core Measure Inpt VTE Proph given/why not?: Unfractionated heparin SQ
[2016-08-31] MEDS: ACETAMINOPHEN 325 MG TAB PO PRN ×2 (12:33→13:40)
[2016-08-31] MEDS: ONDANSETRON INJ 2 MG/ML 2 ML VIAL IV PRN ×2 (13:19→19:17)
--- NOTE | 2016-08-31 15:06 | ECHOCARDIOGRAM REPORT ---
*NOTICE TO RECEIVING REPUBLICAN AGENCY This information is strictly Confidential and protected under [place] law. [place] law prohibits you from making any further disclosure of this information unless further disclosure is expressly permitted by the written consent of the person to whom it pertains or is authorized by law. A general authorization for the release of medical or other information is not sufficient for this purpose. Hospital accepts no responsibility if the information is made available to any other person, INCLUDING THE PATIENT. Interpretation Summary * Name: VIPUL FARRAR Study Date: 08/31/2016 12:25 PM BP: 96/52 mmHg * Patient Location: C.2T\S\S238\S\1 HR: 67 * : 1960 (M/d/yyyy) Gender: Female Height: 67 in * Age: 56 yrs Ethnicity: [place] Weight: 253 lb * Ordering Physician: Ellyn Herbert * Referring Physician: Self, Referred * Performed By: Brittanie Parry RCS * * Reason For Study: CHEST PAIN * BSA: 2.2 m2 * -- Conclusions -- * The left ventricle is normal in size. * Left ventricular systolic function is normal. * Ejection Fraction = 55-60%. * The right ventricular systolic function is normal. * The left atrial size is normal. * Right atrial size is normal. * There is mild mitral regurgitation. * There is mild to moderate tricuspid regurgitation. Procedure Details * Left Ventricle The left ventricle is normal in size. There is normal left ventricular wall thickness. Ejection Fraction = 55-60%. Left ventricular systolic function is normal. The left ventricular wall motion is normal. * Right Ventricle The right ventricle is normal size. The right ventricular systolic function is normal. * Atria The left atrial size is normal. Right atrial size is normal. The interatrial septum is intact with no evidence for an atrial septal defect. * Mitral Valve The mitral valve anatomy is normal. There is mild mitral regurgitation. * Tricuspid Valve The tricuspid valve is not well visualized, but is grossly normal. There is mild to moderate tricuspid regurgitation. * Aortic Valve The aortic valve is tricuspid. The leaflet thickness if normal. There is no aortic stenosis, and no significant insufficiency. The aortic valve opens well. There is no significant aortic regurgitation. * Pulmonic Valve The pulmonic valve is not well visualized. * Great Vessels The aortic root and proximal ascending aorta are normal sized. * Pericardium/Pleural There is no pericardial effusion. * * MMode 2D Measurements and Calculations * IVSd 1.5 cm * IVSs 1.2 cm * * LVIDd 5.0 cm * LVIDs 3.5 cm * LVPWd 1.2 cm * LVPWs 1.6 cm * * IVS/LVPW 1.3 * FS 29.7 % * EDV(Teich) 115.6 ml * ESV(Teich) 50.2 ml * EF(Teich) 56.6 % * * EDV(cubed) 121.4 ml * ESV(cubed) 42.2 ml * EF(cubed) 65.3 % * % IVS thick -15.97 % * % LVPW thick 35.4 % * * LV mass(C)d 260.1 grams * LV mass(C)dI 116.4 grams/m\S\2 * LV mass(C)s 170.8 grams * LV mass(C)sI 76.4 grams/m\S\2 * * CO(Teich) 4.1 l/min * CI(Teich) 1.8 l/min/m\S\2 * SV(Teich) 65.4 ml * SI(Teich) 29.3 ml/m\S\2 * CO(cubed) 4.9 l/min * CI(cubed) 2.2 l/min/m\S\2 * SV(cubed) 79.2 ml * SI(cubed) 35.5 ml/m\S\2 * * Ao root diam 3.2 cm * Ao root area 8.3 cm\S\2 * ACS 2.0 cm * * asc Aorta Diam 3.4 cm * * LVOT diam 2.0 cm * LVOT area 3.2 cm\S\2 * * LVAd ap4 33.5 cm\S\2 * LVLd ap4 8.1 cm * EDV(MOD-sp4) 113.0 ml * LVAs ap4 19.6 cm\S\2 * LVLs ap4 7.0 cm * ESV(MOD-sp4) 48.0 ml * EF(MOD-sp4) 57.5 % * * LVAd ap2 32.2 cm\S\2 * LVLd ap2 8.1 cm * EDV(MOD-sp2) 107.0 ml * LVAs ap2 19.1 cm\S\2 * LVLs ap2 6.7 cm * ESV(MOD-sp2) 46.0 ml * EF(MOD-sp2) 57.0 % * * CO(MOD-sp4) 4.0 l/min * CI(MOD-sp4) 1.8 l/min/m\S\2 * SV(MOD-sp4) 65.0 ml * SI(MOD-sp4) 29.1 ml/m\S\2 * * CO(MOD-sp2) 3.8 l/min * CI(MOD-sp2) 1.7 l/min/m\S\2 * SV(MOD-sp2) 61.0 ml * SI(MOD-sp2) 27.3 ml/m\S\2 * * * * * * Doppler Measurements and Calculations * MV E max helga 104.6 cm/sec * MV A max helga 86.4 cm/sec * * MV E/A 1.2 * * MV P1/2t max helga 107.8 cm/sec * MV P1/2t 39.3 msec * MVA(P1/2t) 5.6 cm\S\2 * MV dec slope 803.8 cm/sec\S\2 * MV dec time 0.19 sec * * Ao V2 max 125.7 cm/sec * Ao max PG 6.3 mmHg * Ao max PG (full) 1.4 mmHg * LEON(V,A) 2.8 cm\S\2 * LEON(V,D) 2.8 cm\S\2 * * LV V1 max PG 4.9 mmHg * * LV V1 max 110.4 cm/sec * * PA V2 max 64.2 cm/sec * PA max PG 1.6 mmHg * * *
[2016-08-31] MEDS ORDERED: ALUMINUM/MAGNESIUM/SIMETH (MAALOX MAX) 30 ML UDC PO PRN (16:00)
[2016-08-31] MEDS ORDERED: PROPRANOLOL HCL 80 MG LA CAP PO SCH (21:00)
[2016-09-01 00:21] VITALS: BP 122/76; PULSE 68; TEMP 36.4; O2SAT 95
--- NOTE | 2016-09-01 00:26 | Progress Note ---
Progress Note Date of Service Sep 01, 2016. Progress Note ATTENDING ADDENDUM ; pt admitted with atypical chest pain more due GI symptom RUQ usg was wnl ordered for Dobutamine stress test pt developed severe headache , nausea /vomiting prior to Dobutamine administration stress test was cancelled pt seen after arriving to floor headache , nausea improved after having meal feels extremely weak and exhausted pt is counselled regarding her symptom possible non cardiac will observe overnight possible discharge home in AM will need out pt Dobutamine stress test to be arranged
[2016-09-01] MEDS: SODIUM CHLORIDE 0.45% 1000ML 1,000 ML IV SCH (02:30)
[2016-09-01 06:58] VITALS: BP 110/68; PULSE 72; TEMP 36.5; O2SAT 96
[2016-09-01 07:56] VITALS: BP 114/73; PULSE 62; TEMP 36.6; O2SAT 96
[2016-09-01] MEDS: ATORVASTATIN 10 MG TAB PO SCH (08:24)
[2016-09-01] MEDS: ACETAMINOPHEN 325 MG TAB PO PRN (08:26)
[2016-09-01] MEDS ORDERED: PANTOprazole SOD 40 MG TAB PO SCH (09:00)
[2016-09-01] MEDS ORDERED: ASPIRIN 81 MG ECTAB PO SCH (09:00)
[2016-09-01 09:02] VITALS: O2SAT 96
[2016-09-01] MEDS ORDERED: NURSING VERBAL MED ORDER ONE ×2 (10:30→11:15)
[2016-09-01] MEDS ORDERED: SUMATRIPTAN SUCCINATE 50 MG TAB PO ONE (11:00)
[2016-09-01 15:11] VITALS: BP 132/83; PULSE 68; TEMP 36.7; O2SAT 97
--- NOTE | 2016-09-01 16:52 | Discharge Summary ---
Discharge Summary Date of Service Sep 01, 2016. Discharge Summary Admission Date: Aug 31, 2016 at 05:08 Discharge Date: Sep 01, 2016 Discharge Disposition: Home Principal Diagnosis: CHEST PAIN Procedures: ECHO : The left ventricle is normal in size. Left ventricular systolic function is normal. Ejection Fraction = 55-60%. The right ventricular systolic function is normal. The left atrial size is normal. Right atrial size is normal. There is mild mitral regurgitation. There is mild to moderate tricuspid regurgitation. ABDOMINAL ULTRASOUND, RIGHT UPPER QUADRANT HISTORY: Generalized abdominal pain.. COMPARISON: Abdomen and pelvis CT 09/24/2009. FINDINGS: Pancreas: The pancreas demonstrates a normal echotexture. Liver: Unremarkable. Gallbladder: The gallbladder is surgically absent. CBD: 6 mm. Right kidney: No hydronephrosis. IMPRESSION: No significant abnormality identified within the right upper quadrant. Cholecystectomy. CT ANGIOGRAPHY OF THE CHEST, PULMONARY EMBOLUS PROTOCOL CLINICAL HISTORY: Chest pain and elevated d-dimer. COMPARISON STUDY: Chest radiograph August 31, 2016. TECHNIQUE: Following IV administration of 91 mL of Optiray-320, helical axial images of the chest were obtained utilizing the pulmonary embolus protocol. Maximal intensity projections and sagittal and coronal reformats were viewed on an independent 3D workstation. IV contrast was administered without complication. CT DOSE: 661.43 mGy.cm FINDINGS: No pulmonary emboli are identified. The heart is mildly enlarged. There is no evidence of thoracic aortic dissection. There is no pericardial effusion. No enlarged axillary, mediastinal or hilar lymph nodes are present. There is no pneumomediastinum. There is no consolidation to suggest pneumonia. Lingular and right middle lobe opacity reflects atelectasis. Bony thorax is unremarkable as is the upper abdomen. The gallbladder is surgically absent. IMPRESSION: 1. No pulmonary emboli identified. 2. No acute intrathoracic findings. 3. Mild cardiomegaly. Medication Reconciliation Continued Medications: Atorvastatin (Lipitor) 10 Mg Tab 10 MG PO DAILY, TAB Omeprazole (Prilosec) 40 Mg Cap 40 MG PO QPM Paroxetine (Paroxetine HCl) 20 Mg Tab 20 MG PO DAILY Propranolol HCl (Propranolol HCl ER) 80 Mg Capcr 80 MG PO QPM Sumatriptan Succinate (Imitrex) 50 Mg Tab 50 MG PO UD PRN for Migraine Referrals At Discharge Follow up Referrals: Physician Referral - 09/06/16 with Angie Nj M.D. Admission Information HPI (per Admitting provider): DATE OF ADMISSION: 08/31/2016 PRIMARY CARE PHYSICIAN: Dr. Nj. CHIEF COMPLAINT: Chest pain. HISTORY OF PRESENT ILLNESS: Hx obtained from px and records. Medical history significant for situational HTN, migraine, chronic anemia ( baseline hemoglobin 10-11), GERD, hyperlipidemia. Patient was at work last night at the [employer] when she experienced epigastric discomfort, burning going up her chest and her back w/ some shortness of breath. Similar to heartburn symptoms. Subsequent emesis and nasal congestion. Good BM. Pain not worse w/ motion. Patient has been missing her home nighttime PPI since she shifted to night work since her mom moved in with her the last few months. Some stress from change. When she got home, she became more anxious, sweaty, increased discomfort. At the Emergency Room some relief with aspirin and nitro. MEDICAL HISTORY: Patient had an outpatient stress test in October 2015, exercise capacity below average. EGD 2016 showed some hiatal hernia and some gastritis. Colonoscopy in 2014, normal. abd US 2009 : fatty liver SURGERIES: Cholecystectomy. HOME MEDICATIONS: Include atorvastatin, paroxetine, omeprazole, sumatriptan, ALLERGIES: AMOXICILLIN, DARVOCET, MORPHINE. FAMILY HISTORY: Heart disease. PERSONAL AND SOCIAL HISTORY: Nonsmoker, no ETOH intake, [employer] employee. REVIEW OF SYSTEMS: As per HPI, all other ROS negative. Physical Exam (per Admitting): PHYSICAL EXAMINATION: VITAL SIGNS: Blood pressure was noted to be 127/70, pulse rate 70 RR 18 T 37 O2sats 97% on room air. GENERAL: Obese, slightly anxious, hyponasal voice. SKIN: Pallor. HEENT : pale palp conjunctivae, dry mucosa. NECK: Short. LUNGS: Decreased breath sounds. HEART: Regular rate and rhythm. ABDOMEN: Epigastric tenderness. EXTREMITIES: min LE edema, no tenderness. NEUROLOGIC: No gross focality. Hospital Course no complain of chest pain or SOB , had headache earlier , resolved, no nausea or vomiting feels fine wants to be discharged home P/E: GEN: no sign of distress HEENT : sclera non icteric LUNGS: CTA HT: regular ,, S1 /S2 ABDOMEN: soft, non tender EXT : no lower ext edema NEURO: AAO x3, no focal deficit Last 8 Hrs Date Time Temp Pulse Resp B/P (MAP) Pulse Ox O2 Delivery O2 Flow Rate FiO2 09/01/16 15:11 36.7 68 19 132/83 (99) 97 Room Air A/p CHEST PAIN : pt admitted with atypical chest pain symptom more likely due to GI symptom RUQ usg was wnl ordered for Dobutamine stress test pt developed severe headache , nausea /vomiting prior to Dobutamine administration stress test was cancelled feels much better today no complain of chest pain or discomfort no nausea tolerating diet well mentions of being under lot of stress at home -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 Admission Reason for Admission: Chest Pain Discharge Discharge Diagnosis / Problem: CHEST PAIN Discharge Goals Goal(s): Decrease discomfort, Diagnostic testing, Therapeutic intervention Activity Recommendations Activity Limitations: resume your previous activity . Instructions / Follow-Up Instructions / Follow-Up HOSPITAL FOLLOW UP : 09/06/2016 @ 11:[address] Angie Nj MD Family [facility] Current Hospital Diet Patient's current hospital diet: Discharge Diet Recommended Diet: AHA Diet (Heart Healthy), Low Fat Diet Pending Studies Studies pending at discharge: no Laboratory Results Lipid Panel Test 08/31/16 06:38 Range/Units Triglycerides Level 53 0-150 mg/dl Cholesterol Level 177 0-200 mg/dl HDL Cholesterol 49 mg/dl Cholesterol/HDL Ratio 3.6 LDL Cholesterol, Calculated 117 mg/dl Medical Emergencies . Who to Call and When: Medical Emergencies: If at any time you feel your situation is an emergency, please call 911 immediately. . Non-Emergent Contact Non-Emergency issues call your: Primary Care Provider . . "Provider Documentation" section prepared by Ellyn Herbert. . VTE Core Measure Inpt VTE Proph given/why not?: Unfractionated heparin SQ Additional Copies To Angie Nj M.D.
== END 2016-09-01 18:01 | disposition home or self-care (01) ==
LOC: EDBD 02:23 → C.EDB 02:24 → C.2T 05:08 → ENRESERV 05:16 → C.MS2W 18:12
PROVIDERS: ADMIT Hospitalist; ATTEND Hospitalist
DX: R07.9 Chest pain, unspecified (principal); E78.5 Hyperlipidemia, unspecified; E66.9 Obesity, unspecified; Z90.49 Acquired absence of other specified parts of digestive tract; Z79.899 Other long term (current) drug therapy; Z88.5 Allergy status to narcotic agent; Z88.1 Allergy status to other antibiotic agents; Z88.0 Allergy status to penicillin; Z82.49 Family history of ischemic heart disease and other diseases of the circulatory system

== ENCOUNTER → 2017-05-27 | Outpatient (CLI) | payer BC ==
[~2017-05-27] MED LIST changes: +OPTIRAY 320 IV PRN
--- NOTE | 2017-05-27 07:53 | DIAGNOSTIC IMAGING REPORT ---
CT OF THE ABDOMEN AND PELVIS WITH CONTRAST CLINICAL HISTORY: Supraumbilical hernia. COMPARISON STUDY: CT of the abdomen September 24, 2009 and right upper quadrant ultrasound August 31, 2016. TECHNIQUE: Following IV administration of 116 mL of Optiray-320, axial images of the abdomen and pelvis were obtained from the lung bases to the proximal femurs. Images were reviewed in the axial, sagittal, and coronal planes. IV contrast was administered without complication. A dose lowering technique was utilized adhering to the principles of ALARA. CT DOSE: 1160.40 mGy.cm FINDINGS: Lung bases are clear. There is no biliary ductal dilatation status post cholecystectomy. There is suspected fatty infiltration of the liver. The spleen, adrenal glands and pancreas are normal. There is no pancreatic ductal dilatation. There are small bilateral renal calculi. Less likely, this could reflect excreted contrast. There are no ureteral calculi and there is no hydronephrosis or hydroureter. There is no evidence for a bowel obstruction. The appendix is normal. There is no lymphadenopathy. Note is made of 2 adjacent supraumbilical fat-containing hernias. The hernia defects measure 2.9 cm in transverse dimension. There is a tiny fat-containing umbilical hernia is well. No bowel loops are present within the hernia sac. No suspicious osseous lesions are present. IMPRESSION: 1. Two adjacent fat-containing supraumbilical hernias. Tiny fat-containing umbilical hernia. 2. No bowel obstruction. 3. Suspected fatty infiltration of the liver. Electronically signed by: Arnaldo Dawson M.D. 05/27/2017 7:52 AM Dictated Date/Time: 05/27/2017 7:42 AM
== END | disposition home or self-care (01) ==
LOC: C.CTS 07:18
PROVIDERS: ATTEND Surgery
DX: K43.9 Ventral hernia without obstruction or gangrene (principal)

== ENCOUNTER 2017-07-08 04:55 | Observation (INO) | payer BC ==
[2017-06-18 08:24] VITALS: BMI 42.0
--- NOTE | 2017-06-18 08:51 | PAT Medication Instructions ---
Service Date Jun 18, 2017. Current Home Medication List Atorvastatin (Lipitor), 10 MG PO QPM Fluticasone Propionate (Nasal) (Flonase Allergy Relief), 1 SPRAY FLORES QD PRN for PRN Omeprazole (Prilosec), 40 MG PO QPM Paroxetine (Paroxetine HCl), 20 MG PO QPM Propranolol HCl (Propranolol HCl ER), 80 MG PO QPM Ranitidine Hcl (Zantac), 150 MG PO DAILY PRN for Indigestion Sumatriptan Succinate (Imitrex), 50 MG PO UD PRN for Migraine Tramadol (Ultram), 50 MG PO Q4H PRN for Pain Medication Instructions For Your Scheduled Surgery - Take the following medications the morning of surgery with a sip of water: Fluticasone Propionate (Nasal) (Flonase Allergy Relief), 1 SPRAY FLORES QD PRN for PRN (if needed) Ranitidine Hcl (Zantac), 150 MG PO DAILY PRN for Indigestion (if needed) Sumatriptan Succinate (Imitrex), 50 MG PO UD PRN for Migraine (if needed) Tramadol (Ultram), 50 MG PO Q4H PRN for Pain (if needed, can be taken up to four hours before surgery) - Take the following medications as scheduled the night before surgery: Atorvastatin (Lipitor), 10 MG PO QPM Fluticasone Propionate (Nasal) (Flonase Allergy Relief), 1 SPRAY FLORES QD PRN for PRN (if needed) Omeprazole (Prilosec), 40 MG PO QPM Paroxetine (Paroxetine HCl), 20 MG PO QPM Propranolol HCl (Propranolol HCl ER), 80 MG PO QPM Ranitidine Hcl (Zantac), 150 MG PO DAILY PRN for Indigestion (if needed) Sumatriptan Succinate (Imitrex), 50 MG PO UD PRN for Migraine (if needed) Tramadol (Ultram), 50 MG PO Q4H PRN for Pain (if needed) If you have any questions please call us at [phone] or [phone] or [phone]
[2017-06-18 10:31] LABS: BASO % 1.1 %; BASO ABS # 0.05 K/uL (0-0.2); EOS % 1.3 %; EOS ABS # 0.06 K/uL (0-0.5); HEMATOCRIT 34.9 % (37-47); HEMOGLOBIN 10.5 g/dL (12.0-16.0); LYMPH % 35.8 %; LYMPH ABS # 1.69 K/uL (1.2-3.4); MEAN CELL VOLUME 82.3 fL (80-100); MEAN CORPUSCULAR HEMOGLOBIN 24.8 pg (25-34); MEAN CORPUSCULAR HGB CONC 30.1 g/dl (32-36); MEAN PLATELET VOLUME 10.5 fL (7.4-10.4); MONO % 7.8 %; MONO ABS # 0.37 K/uL (0.11-0.59); NEUT ABS # 2.55 K/uL (1.4-6.5); PLATELET COUNT 315 K/uL (130-400); RED CELL DISTRIBUTION WIDTH CV 16.6 % (11.5-14.5); RED CELL DISTRIBUTION WIDTH SD 50.1 fL (36.4-46.3); WHITE BLOOD COUNT 4.72 K/uL (4.8-10.8)
[2017-06-18 10:37] LABS: CREATININE 0.9 mg/dl (0.60-1.20); POTASSIUM 4.7 mmol/L (3.5-5.1)
[~2017-07-08] VITALS: Ht 170.2 cm; Wt 121.5 kg
[2017-07-08] VITALS (9 sets, daily range): BP systolic 112–130; BP diastolic 70–86; PULSE 65–100; TEMP 36.6–36.9; O2SAT 90–98; Ht 170.2 cm; Wt 121.5 kg
[~2017-07-08 04:55] MED LIST changes: +FLUT0.15 NAE; -OPTIRAY 320 IV PRN; +RANI150T3 PO; +TRAM-10 PO
[2017-07-08] MEDS ORDERED: ACET-1311 PO (05:36)
[2017-07-08] MEDS ORDERED: CLR10 PO (05:36)
[2017-07-08] MEDS ORDERED: LACTATED RINGER'S 1000ML 1,000 ML IV SCH ×2 (06:00→08:04)
[2017-07-08] MEDS ORDERED: CLINDAMYCIN IV 900 MG in DEXTROSE 5% 50ML 50 ML IV SCH (06:00)
[2017-07-08] MEDS ORDERED: LIDOCAINE HCL 2% 2 ML VIAL (20MG/ML) ONE (06:38)
[2017-07-08] MEDS ORDERED: DEXAMETHASONE SOD INJ 4 MG/ML VIAL ONE (06:38)
[2017-07-08] MEDS ORDERED: ONDANSETRON INJ 2 MG/ML 2 ML VIAL ONE (06:38)
[2017-07-08] MEDS ORDERED: PROPOFOL IV EMULSION 10 MG/ML 20 ML VIAL IV ONE (06:38)
[2017-07-08] MEDS ORDERED: FENTANYL CITRATE INJ 50 MCG/1 ML 2 ML VIAL ONE ×2 (06:39→07:22)
[2017-07-08] MEDS ORDERED: MIDAZOLAM HCL 1 MG/ML 2ML VIAL ONE (06:39)
[2017-07-08] MEDS ORDERED: CEFAZOLIN SOD 1 GM VIAL ONE (06:48)
[2017-07-08] MEDS ORDERED: BUPIVACAINE 0.5 % 5 MG/1 ML MPF 30ML VIAL ONE (06:48)
--- NOTE | 2017-07-08 06:50 | History & Physical Bridge Note ---
H&P Re-Evaluation Bridge Note: I have examined the patient, reviewed the History & Physical and in the interval since the performance of the History & Physical I have noted the following changes of clinical significance: No changes noted
[2017-07-08] MEDS ORDERED: RANITIDINE HCL 25 MG/ML INJ ONE (07:28)
[2017-07-08] MEDS ORDERED: METOCLOPRAMIDE HCL INJ 5 MG/ML 2 ML VIAL ONE (07:28)
[2017-07-08] MEDS ORDERED: DiphenhydrAMINE HCL 50 MG/ML VIAL ONE (07:28)
[2017-07-08] MEDS ORDERED: EpHEDrine SULFATE INJ 50 MG/ML AMP IV PRN (07:30)
[2017-07-08] MEDS ORDERED: ONDANSETRON INJ 2 MG/ML 2 ML VIAL IV PRN ×2 (07:30→08:15)
[2017-07-08] MEDS ORDERED: ATROPINE SULFATE 0.1 MG/ML 5ML SYR IV PRN (07:30)
[2017-07-08] MEDS ORDERED: NALOXONE HCL 0.4 MG/1 ML VIAL/CARP IV PRN (07:30)
[2017-07-08] MEDS ORDERED: HYDROmorphone INJ 0.5 MG/0.5 ML SYR IV PRN ×2 (07:30→08:15)
[2017-07-08] MEDS ORDERED: FENTANYL CITRATE INJ 50 MCG/1 ML 2 ML VIAL IV PRN (07:30)
[2017-07-08] MEDS ORDERED: FLUMAZENIL 0.1 MG/1 ML 10 ML VIAL IV PRN (07:30)
[2017-07-08] MEDS ORDERED: PROMETHAZINE HCL INJ 12.5 MG in SODIUM CHLORIDE 0.9% 50ML 50 ML IV PRN (07:30)
[2017-07-08] MEDS ORDERED: LABETALOL HCL IV 5 MG/ML 20ML IV PRN (07:30)
[2017-07-08] MEDS ORDERED: EpHEDrine SULFATE 50MG/5ML SYR ONE (07:41)
[2017-07-08] MEDS ORDERED: KETOROLAC TROMETHAMINE 30 MG/ML VIAL ONE (08:00)
--- NOTE | 2017-07-08 08:03 | [facility] Operative Report ---
Operative Report Operative Date Jul 08, 2017. Pre-Operative Diagnosis Supraumbilical Hernia Post-Operative Diagnosis Supraumbilical Hernias Procedure(s) Performed Laparoscopic Ventral Hernia Repair with Surgimesh Surgeon Dr. Dmitry Vega Welder Tool And Die Surgeon(s) Terell Marr PA-C Estimated Blood Loss mL Findings 2 defects 3-4 cm total, used 12.5 cm surgimesh Specimens No pathology specimens per surgeon Drains None Anesthesia Type General Complication(s) none Disposition Recovery Room / PACU I attest to the content of the Intraoperative Record and any orders documented therein. Any exceptions are noted below.
[2017-07-08] MEDS ORDERED: HYDROmorphone INJ 2 MG/ML SYR/VIAL IV PRN (08:15)
[2017-07-08] MEDS ORDERED: HYDROCODONE/ACETAMIN 5/325MG TAB PO PRN ×2 (08:15)
[2017-07-08] MEDS ORDERED: PROMETHAZINE HCL INJ 25 MG in SODIUM CHLORIDE 0.9% 50ML 50 ML IV PRN (08:15)
--- NOTE | 2017-07-08 08:34 | OPERATIVE REPORT ---
REVISED REPORT DATE OF OPERATION: 07/08/2017 NAME OF OPERATION: Laparoscopic incisional hernia repair. PREOPERATIVE DIAGNOSIS: Incisional hernia x2. POSTOPERATIVE DIAGNOSIS: Incisional hernia x2. STAFF SURGEON: Dmitry Vega MD BENCH LOOM WEAVER: Terell Marr PA-C ANESTHESIA: General. DESCRIPTION OF PROCEDURE: The patient was brought in the operating room and placed on the operating table in supine position. Pneumatic stockings, orogastric tube were placed. Her abdomen was prepped and draped in usual fashion. 0.5% plain Marcaine was used to anesthetize all her incisions. Incision made in the left upper quadrant, carrying dissection down, identifying the fascia, placing a Veress needle producing pneumoperitoneum. An 11 mm port placed in the left upper quadrant and then under visualization, two 5 mm ports were placed on the left lateral and then later in the case two 5 mm ports were placed on the right lateral. On examination, the patient had a preperitoneal adipose tissue within 2 hernia defects. This tissue was mobilized, mobilizing the tissue away from the fascia superiorly and inferiorly to allow for the mesh to be placed against the fascia. A 12.5-cm piece of Surgimesh was obtained, placed into the abdomen. The defects amounted to approximately 3-4 cm in total diameter. The mesh was brought up through a separate stab incision through the sac using a suture passer. The polypropylene was toward the fascia, the silicone was toward the bowel. The mesh was secured in 2 rows using absorbable tacks, 1 outer and 1 inner row. At this point, all ports were removed. Pneumoperitoneum reduced. The fascia in the left upper quadrant closed using interrupted 0 Vicryl suture. Skin reapproximated using subcuticular 4-0 Monocryl and Steri-Strips in left upper quadrant, Dermabond to the other sites. The patient transferred to recovery room in stable condition. I attest to the content of the Intraoperative Record and any orders documented therein. Any exceptions are noted below. ADDENDUM My kennel assistant helped with prepping, draping, exposure of the intra-abdominal space, placement of the mesh, and closure of the wounds. MTDVerónica
--- NOTE | 2017-07-08 09:43 | Anesthesiology Progress Note ---
Anesthesia Post Op Note Date & Time Jul 08, 2017 at 09:43 Vital Signs Pain Intensity: 0 Vital Signs Past 12 Hours Date Time Temp Pulse Resp B/P (MAP) Pulse Ox O2 Delivery O2 Flow Rate FiO2 07/08/17 09:41 123/90 07/08/17 09:39 70 14 07/08/17 09:39 67 14 97 07/08/17 09:36 138/75 07/08/17 09:34 78 16 95 07/08/17 09:34 80 16 07/08/17 09:31 129/71 07/08/17 09:29 78 15 07/08/17 09:29 82 15 92 07/08/17 09:26 103/78 07/08/17 09:24 69 12 07/08/17 09:24 71 12 94 07/08/17 09:21 109/75 07/08/17 09:19 62 14 95 07/08/17 09:19 63 14 07/08/17 09:16 121/70 07/08/17 09:14 82 10 07/08/17 09:14 82 10 93 07/08/17 09:13 68 10 07/08/17 09:13 71 10 95 07/08/17 09:11 118/79 07/08/17 09:08 85 19 93 07/08/17 09:08 83 19 07/08/17 09:06 137/72 07/08/17 09:03 70 16 92 07/08/17 09:03 67 16 07/08/17 09:02 65 16 07/08/17 09:02 66 16 92 07/08/17 09:01 141/68 07/08/17 08:57 62 15 07/08/17 08:57 64 15 93 07/08/17 08:56 141/88 07/08/17 08:53 36.5 75 16 141/88 (100) 96 Nasal Cannula 2 07/08/17 08:53 65 15 95 07/08/17 08:53 64 15 07/08/17 08:51 156/83 07/08/17 08:48 65 14 07/08/17 08:48 60 14 96 07/08/17 08:46 134/80 07/08/17 08:43 69 16 99 07/08/17 08:43 68 16 07/08/17 08:42 151/83 07/08/17 08:42 151/83 07/08/17 08:40 70 14 07/08/17 08:40 73 14 99 07/08/17 08:40 70 14 07/08/17 08:40 73 14 99 07/08/17 08:36 136/93 07/08/17 08:36 136/93 07/08/17 08:35 79 17 94 07/08/17 08:35 74 17 07/08/17 08:35 79 17 94 07/08/17 08:35 74 17 07/08/17 08:31 125/85 07/08/17 08:31 125/85 07/08/17 08:30 79 18 07/08/17 08:30 78 18 91 07/08/17 08:30 79 18 07/08/17 08:30 78 18 91 07/08/17 08:26 158/74 07/08/17 08:26 158/74 07/08/17 08:25 36.2 75 12 125/85 (90) 92 Oxymask 10 07/08/17 05:43 36.9 65 18 119/74 (89) 98 Room Air Notes Mental Status: alert / awake / arousable, participated in evaluation Pt Amnestic to Procedure: Yes Nausea / Vomiting: adequately controlled Pain: adequately controlled Airway Patency, RR, SpO2: stable & adequate BP & HR: stable & adequate Hydration State: stable & adequate Anesthetic Complications: no major complications apparent
--- NOTE | 2017-07-08 11:00 | Medical Consult ---
Consultation Date of Consultation: Jul 08, 2017. Attending Physician: Dmitry Vega M.D. Reason for Consultation: Medical management History of Present Illness Pt is 57 y/o F with PMH migraine, dyslipidemia, chronic anemia, GERD, anxiety seen in medical consult. Patient S/P laparoscopic incisional hernia repair by Dr. Vega this a.m. currently patient states is feeling good, reports only slight abdominal pain and feels like pain is well controlled. Has not urinated or had BM yet after surgery. Reports last BM yesterday. Denies any nausea or vomiting. Is drinking water without difficulty. Denies fever/chills, diaphoresis, CHAVEZ, dizziness, vision changes, neck pain, CP, SOB, palpitations, cough, sore throat, choking, otalgia, rhinorrhea, paresthesias, extremity weakness, extremity edema, rashes, urinary symptoms. Past Medical/Surgical History Medical Problems: (1) Abdominal pain Status: Resolved (2) Anxiety Status: Chronic (3) Chest pain Status: Resolved (4) Dyslipidemia Status: Chronic (5) Elevated blood pressure, situational Status: Chronic (6) GERD (gastroesophageal reflux disease) Status: Chronic (7) Migraine Status: Chronic (8) Small bowel obstruction Status: Resolved Surgical Problems: (1) History of incisional hernia repair Permanent Comment: 07/08/17 - [facility] - Dr Vega Status: Resolved (2) History of tonsillectomy and adenoidectomy Status: Resolved (3) Hx of cholecystectomy Status: Resolved (4) Hx of cholecystectomy Status: Resolved Family History FH: AK (myocardial infarction) FH: heart disease Hypertension Stroke Social History Smoking Status: Never Smoker Smokeless Tobacco Use: No Alcohol Use: occasionally Drug Use: none Marital Status: single Housing Status: lives alone Occupation Status: employed Allergies Coded Allergies: Morphine (Unverified Adverse Reaction, Intermediate, PT STATES IT MAKES HER IRRIATABLE, 07/08/17) Penicillins (Verified Adverse Reaction, Unknown, "WAS NOT EFFECTIVE", ) Propoxyphene (Verified Adverse Reaction, Unknown, SEVERE HEADACHES, 07/08/17 ) Current Inpatient Medications Current Inpatient Medications Medications (Trade) Dose Ordered Sig/Katya Route Start Time Stop Time Status Last Admin Dose Admin Clindamycin Phosphate 900 mg/ Dextrose 56 ml @ 100 mls/hr PREOP IV 07/08/17 06:00 07/08/17 18:00 07/08/17 06:55 100 MLS/HR Lactated Ringer's 1,000 ml @ 15 mls/hr Q24H IV 07/08/17 06:00 07/09/17 05:59 07/08/17 05:55 15 MLS/HR Fentanyl Citrate (Fentanyl Inj) 25 mcg Q5M PRN IV 07/08/17 07:30 07/08/17 12:30 Hydromorphone HCl (Dilaudid Inj) 0.25 mg Q5M PRN IV 07/08/17 07:30 07/08/17 12:30 Naloxone HCl (Narcan Inj) 0.2 mg Q2M PRN IV 07/08/17 07:30 07/08/17 12:30 Flumazenil (Romazicon Inj) 0.2 mg Q2M PRN IV 07/08/17 07:30 07/08/17 12:30 Ondansetron HCl (Zofran Inj) 4 mg ONE PRN IV 07/08/17 07:30 07/08/17 12:30 Promethazine HCl 12.5 mg/Sodium Chloride 50.5 ml @ 202 mls/hr ONE PRN IV 07/08/17 07:30 07/08/17 12:30 Labetalol HCl (Normodyne IV) 5 mg Q5M PRN IV 07/08/17 07:30 07/08/17 12:30 Ephedrine Sulfate (EpHEDrine SULFATE INJ) 5 mg Q5M PRN IV 07/08/17 07:30 07/08/17 12:30 Atropine Sulfate (Atropine Sulfate 0.1mg/ml Inj) 0.5 mg Q1M PRN IV 07/08/17 07:30 07/08/17 12:30 Atorvastatin Calcium (Lipitor Tab) 10 mg QPM PO 07/08/17 21:00 08/07/17 20:59 UNV Paroxetine HCl (pAXil TAB) 20 mg QPM PO 07/08/17 21:00 08/07/17 20:59 UNV Propranolol HCl (Inderal LA Cap) 80 mg QPM PO 07/08/17 21:00 08/07/17 20:59 UNV Lactated Ringer's 1,000 ml @ 75 mls/hr [id number] IV 07/08/17 08:04 08/07/17 08:03 Clindamycin Phosphate (Cleocin 600mg/ 54ml D5W) 600 mg Q8 IV 07/08/17 14:00 07/10/17 09:00 UNV Hydromorphone HCl (Dilaudid Inj) 0.5 mg Q3H PRN IV 07/08/17 08:15 07/22/17 08:14 Hydromorphone HCl (Dilaudid Inj) 1 mg Q3H PRN IV 07/08/17 08:15 07/22/17 08:14 Acetaminophen/ Hydrocodone Bitart (Stewart 5/325 Tab) 1 tab Q4 PRN PO 07/08/17 08:15 07/22/17 08:14 Acetaminophen/ Hydrocodone Bitart (Stewart 5/325 Tab) 2 tab Q4 PRN PO 07/08/17 08:15 07/22/17 08:14 Magnesium Hydroxide (Milk Of Magnesia Susp) 30 ml BID PO 07/08/17 13:00 08/07/17 12:59 UNV Senna/Docusate Sodium (Senokot S Tab) 1 tab BID PO 07/08/17 11:00 08/07/17 10:59 UNV Ketorolac Tromethamine (Toradol Inj) 30 mg Q6H IV. 07/08/17 08:15 07/13/17 08:14 UNV Ondansetron HCl (Zofran Inj) 4 mg Q6H PRN IV 07/08/17 08:15 08/07/17 08:14 Promethazine HCl 25 mg/Sodium Chloride 51 ml @ 204 mls/hr Q6H PRN IV 07/08/17 08:15 08/07/17 08:14 Review of Systems See HPI for pertinent positives & negatives. All other systems reviewed and were otherwise negative Physical Exam Date Time Temp Pulse Resp B/P (MAP) Pulse Ox O2 Delivery O2 Flow Rate FiO2 07/08/17 09:44 36.5 75 16 141/88 (100) 96 Nasal Cannula 2 07/08/17 09:41 123/90 07/08/17 09:39 70 14 07/08/17 09:39 67 14 97 07/08/17 09:36 138/75 07/08/17 09:35 36.5 75 16 141/88 (100) 96 Nasal Cannula 2 07/08/17 09:34 78 16 95 07/08/17 09:34 80 16 07/08/17 09:31 129/71 07/08/17 09:29 78 15 07/08/17 09:29 82 15 92 07/08/17 09:26 103/78 07/08/17 09:25 36.5 75 16 141/88 (100) 96 Nasal Cannula 2 07/08/17 09:24 69 12 07/08/17 09:24 71 12 94 07/08/17 09:21 109/75 07/08/17 09:19 62 14 95 07/08/17 09:19 63 14 07/08/17 09:16 121/70 07/08/17 09:15 36.5 75 16 141/88 (100) 96 Nasal Cannula 2 07/08/17 09:14 82 10 07/08/17 09:14 82 10 93 07/08/17 09:13 68 10 07/08/17 09:13 71 10 95 07/08/17 09:11 118/79 07/08/17 09:08 85 19 93 07/08/17 09:08 83 19 07/08/17 09:06 137/72 07/08/17 09:05 36.5 75 16 141/88 (100) 96 Nasal Cannula 2 07/08/17 09:03 70 16 92 07/08/17 09:03 67 16 07/08/17 09:02 65 16 07/08/17 09:02 66 16 92 07/08/17 09:01 141/68 07/08/17 08:57 62 15 07/08/17 08:57 64 15 93 07/08/17 08:56 141/88 07/08/17 08:55 36.5 75 16 141/88 (100) 96 Nasal Cannula 2 07/08/17 08:53 36.5 75 16 141/88 (100) 96 Nasal Cannula 2 07/08/17 08:53 65 15 95 07/08/17 08:53 64 15 07/08/17 08:51 156/83 07/08/17 08:48 65 14 07/08/17 08:48 60 14 96 07/08/17 08:46 134/80 07/08/17 08:45 36.2 75 12 125/85 (90) 92 Oxymask 10 07/08/17 08:45 36.2 75 12 125/85 (90) 92 Oxymask 10 07/08/17 08:43 69 16 99 07/08/17 08:43 68 16 07/08/17 08:42 151/83 07/08/17 08:42 151/83 07/08/17 08:40 70 14 07/08/17 08:40 73 14 99 07/08/17 08:40 70 14 07/08/17 08:40 73 14 99 07/08/17 08:36 136/93 07/08/17 08:36 136/93 07/08/17 08:35 79 17 94 07/08/17 08:35 74 17 07/08/17 08:35 79 17 94 07/08/17 08:35 36.2 75 12 125/85 (90) 92 Oxymask 10 07/08/17 08:35 74 17 07/08/17 08:31 125/85 07/08/17 08:31 125/85 07/08/17 08:30 79 18 07/08/17 08:30 78 18 91 07/08/17 08:30 79 18 07/08/17 08:30 78 18 91 07/08/17 08:26 158/74 07/08/17 08:26 158/74 07/08/17 08:25 36.2 75 12 125/85 (90) 92 Oxymask 10 07/08/17 05:43 36.9 65 18 119/74 (89) 98 Room Air General Appearance: no apparent distress, + obese Head: normocephalic, atraumatic Eyes: normal inspection, sclerae normal ENT: hearing grossly normal, pharynx normal, + pertinent finding (Mucous membranes moist) Neck: supple, trachea midline Respiratory/Chest: lungs clear, normal breath sounds, no respiratory distress Cardiovascular: regular rate, rhythm, no murmur, normal peripheral pulses Abdomen/GI: normal bowel sounds, soft, + pertinent finding (Incisional sites with Dermabond in place without any surrounding erythema or edema or discharge, 1 incisional site to left upper abdomen with Steri-Strips in place without any surrounding erythema, edema or discharge. Abdomen with slight tenderness to palpation without rebound or guarding.) Extremities/Musculoskelatal: normal inspection, no calf tenderness, normal capillary refill, no pedal edema Neurologic/Psych: alert, normal mood/affect, oriented x 3 Skin: normal color, warm/dry Assessment & Plan PT POST OP DAY# 0 S/P LAPAROSCOPIC INCISIONAL HERNIA REPAIR BY DR. VEGA -pain management per surgery -wound management per surgery -DVT prophylaxis per surgery -Bowel regimen per surgery -incentive spirometry -monitor H&H for acute blood loss anemia CHRONIC ANEMIA Hgb: 10.5 on 06/18/17 -Monitor H&H MIGRAINE Denies current headache -Continue propranolol ANXIETY -Continue Paxil GERD -Continue PPI DYSLIPIDEMIA -Continue atorvastatin DVT Prophylaxis -SCDs per surgery Disposition admitted med surg Full code Follows with Dr Nj for routine care Pt was seen with Dr Cantor. See addendum Patient will be followed by Dr. Cantor throughout remaining hospital course I have seen and examined the patient with LUBA Valdivia and agree with the assessment and plan as above. Physical Exam General: no acute distress Neck: no JVD Lungs: Clear to auscultation bilaterally Heart: regular rate, no murmur Abdomen: positive bowel sounds, mild tenderness of left and right upper epigastrum, there are laparoscopic surgical incisions scars which have closed, no external drainage or bleeding Extremities: no gross edema Neuro: awake and alert and oriented and responds to questions appropriately. This is a 57 year patient old s/p laproscopic incisional hernia repair today. Patient denies history of heart disease or stroke or history of diabetes. Hospitalist medicine was asked for medical consult. Patient appears to be doing well. I agree with the surgical team's management to date of giving preop antibiotics and IV fluids and pain control medications and incentive spirometer and DVT prophylaxis. Review of patient's labs prior to the surgery shows a chronic anemia. [facility] ascp consultant has ordered basic medical labs for the surgical team for the next day to trend blood count and electrolytes and renal function. Thank you for the post-op medical consult Tomorrow. Dr. Gray will be the medical doctor for patient's that I have seen today and any further questions for medical management tomorrow can be referred to him Additional Copies To Angie Nj M.D.
[2017-07-08] MEDS: MAGNESIUM HYDROXIDE SUSP 30 ML UDC PO SCH ×2 (12:01→21:10)
[2017-07-08] MEDS: DOCUSATE SODIUM/SENNA 50/8.6MG TAB PO SCH ×2 (13:20→21:10)
[2017-07-08] MEDS ORDERED: CLC/300 PO (13:36)
[2017-07-08] MEDS ORDERED: HYDR-5688 PO (13:36)
[2017-07-08] MEDS: KETOROLAC TROMETHAMINE 30 MG/ML VIAL IV. SCH ×2 (13:38→21:11)
[2017-07-08] MEDS: CLINDAMYCIN IV 600 MG in DEXTROSE 5% 50ML 50 ML IV SCH ×2 (13:38→22:13)
--- NOTE | 2017-07-08 13:39 | Discharge Instructions ---
Discharge Instructions Date of Service Jul 08, 2017. Admission Reason for Admission: Supraumbilical Hernia Discharge Discharge Diagnosis / Problem: incisional hernia Discharge Goals Goal(s): Decrease discomfort, Improve function, Improve disease control Activity Recommendations Activity Limitations: as noted below Lifting Limitations: no more than 25 pounds Exercise/Sports Limitations: until after follow-up appointment May Resume Sexual Activity: when tolerated Shower/Bathe: tomorrow Driving or Machine Use: one week . Instructions / Follow-Up Instructions / Follow-Up SPECIAL CARE INSTRUCTIONS: * Cover incisions and change daily for comfort/drainage. May leave uncovered with dermabond * leave steri strips in place Avoid constipation- may use Senokot S and Milk of magnesia twice daily as directed on the package * May use ibuprofen for pain as tolerated. * Expect some swelling and bruising. Call your doctor if: * Temperature above 101 degrees * Pain not relieved by pain medicine ordered * There is increased drainage or redness from any incision * You have any unanswered questions or concerns [phone]. FOLLOW UP VISIT: If not already scheduled, please call the office for a follow-up visit. for next week- check up OFFICE PHONE NUMBER: Dr. Vega Office Current Hospital Diet Patient's current hospital diet: Regular Diet Discharge Diet Recommended Diet: Regular Diet Procedures Procedures Performed: Laparoscopic Ventral Hernia Repair with Surgimesh Pending Studies Studies pending at discharge: no Medical Emergencies . Who to Call and When: Medical Emergencies: If at any time you feel your situation is an emergency, please call 911 immediately. . Non-Emergent Contact Non-Emergency issues call your: Primary Care Provider, Surgeon . "Provider Documentation" section prepared by Dmitry Vega. .
[2017-07-08] MEDS ORDERED: CLINDAMYCIN 600 MG/54 ML D5W IV SCH (14:00)
[2017-07-08] MEDS ORDERED: IV FLUIDS COMPLETED PRN (16:00)
[2017-07-08] MEDS ORDERED: NURSING VERBAL MED ORDER ONE (17:45)
[2017-07-08] MEDS ORDERED: ACETAMINOPHEN 325 MG TAB PO PRN (18:00)
[2017-07-08] MEDS ORDERED: PAROXETINE 20 MG TAB PO SCH (21:00)
[2017-07-08] MEDS ORDERED: ATORVASTATIN 10 MG TAB PO SCH (21:00)
[2017-07-08] MEDS ORDERED: PANTOprazole SOD 40 MG TAB PO SCH (21:00)
[2017-07-08] MEDS ORDERED: PROPRANOLOL HCL 80 MG LA CAP PO SCH (21:00)
[2017-07-09] MEDS: KETOROLAC TROMETHAMINE 30 MG/ML VIAL IV. SCH ×2 (02:04→08:00)
[2017-07-09 03:21] VITALS: BP 111/70; PULSE 74; TEMP 36.7; O2SAT 92
[2017-07-09] MEDS: CLINDAMYCIN IV 600 MG in DEXTROSE 5% 50ML 50 ML IV SCH (05:21)
[2017-07-09 07:11] LABS: HEMATOCRIT 33.2 % (37-47); HEMOGLOBIN 10.2 g/dL (12.0-16.0); MEAN CELL VOLUME 82.2 fL (80-100); MEAN CORPUSCULAR HEMOGLOBIN 25.2 pg (25-34); MEAN CORPUSCULAR HGB CONC 30.7 g/dl (32-36); MEAN PLATELET VOLUME 9.9 fL (7.4-10.4); PLATELET COUNT 331 K/uL (130-400); RED CELL DISTRIBUTION WIDTH CV 16.7 % (11.5-14.5); WHITE BLOOD COUNT 9.19 K/uL (4.8-10.8)
--- NOTE | 2017-07-09 07:16 | DISCHARGE SUMMARY ---
PRINCIPAL DIAGNOSIS: Incisional hernias. PROCEDURES: The patient underwent laparoscopic incisional hernia repair. HISTORY OF PRESENT ILLNESS: The patient is a 57-year-old female who had previous laparoscopic cholecystectomy, now has evidence of herniation at the periumbilical site and also just above that a small defect. She is for elective repair. The patient was brought into the hospital on 07/08/2017 where she underwent laparoscopic incisional hernia repair. She did quite well from the operation and has done very well overnight and is felt stable for discharge home today to be followed in the surgical clinic within 1-2 weeks.
[2017-07-09 07:28] VITALS: BP 115/71; PULSE 79; TEMP 36.6; O2SAT 91
[2017-07-09 07:44] LABS: CALCIUM 9.1 mg/dl (8.5-10.1); CREATININE 1.06 mg/dl (0.60-1.20)
[2017-07-09 07:50] VITALS: BP 115/71; PULSE 79; TEMP 36.6; O2SAT 91
[2017-07-09] MEDS: MAGNESIUM HYDROXIDE SUSP 30 ML UDC PO SCH (08:00)
[2017-07-09] MEDS: DOCUSATE SODIUM/SENNA 50/8.6MG TAB PO SCH (08:00)
--- NOTE | 2017-07-09 08:10 | Anesthesiology Progress Note ---
Anesthesia Post Op Note Date & Time Jul 09, 2017 at 08:09 Vital Signs Vital Signs Past 12 Hours Date Time Temp Pulse Resp B/P (MAP) Pulse Ox O2 Delivery O2 Flow Rate FiO2 07/09/17 07:50 36.6 79 18 91 Room Air 07/09/17 07:28 36.6 79 18 115/71 (86) 91 Room Air 07/09/17 03:21 36.7 74 14 111/70 (84) 92 Room Air 07/08/17 23:39 Room Air 07/08/17 22:59 36.6 87 15 112/70 (84) 91 Room Air 07/08/17 20:19 36.7 92 16 120/74 (89) 92 Room Air Notes Mental Status: alert / awake / arousable, participated in evaluation Pt Amnestic to Procedure: Yes Nausea / Vomiting: adequately controlled Pain: adequately controlled Airway Patency, RR, SpO2: stable & adequate BP & HR: stable & adequate Hydration State: stable & adequate Anesthetic Complications: no major complications apparent
--- NOTE | 2017-07-09 10:02 | Progress Note ---
Progress Note Date of Service Jul 09, 2017 10:02 . Progress Note Doing well postop. VS stable. OK for discharge. Family Medicine follow-up with Dr. Nj. .
== END 2017-07-09 10:41 | disposition home or self-care (01) ==
LOC: C.ACU 04:55 → C.MSN 08:09 → ENRESERV 09:18
PROVIDERS: ADMIT Surgery; ATTEND Surgery
DX: K43.2 Incisional hernia without obstruction or gangrene (principal); D64.9 Anemia, unspecified; K21.9 Gastro-esophageal reflux disease without esophagitis; E78.5 Hyperlipidemia, unspecified; E66.9 Obesity, unspecified; I10 Essential (primary) hypertension; I07.1 Rheumatic tricuspid insufficiency; Z90.49 Acquired absence of other specified parts of digestive tract; Z98.51 Tubal ligation status; Z81.8 Family history of other mental and behavioral disorders; Z82.49 Family history of ischemic heart disease and other diseases of the circulatory system; Z82.3 Family history of stroke; Z79.899 Other long term (current) drug therapy; Z88.1 Allergy status to other antibiotic agents; Z88.5 Allergy status to narcotic agent

== ENCOUNTER 2020-12-14 05:43 | Observation (INO) ==
--- NOTE | 2020-11-11 15:37 | PAT Medication Instructions ---
Medication Instructions Date of Service November 11, 2020 Home Medications acetaminophen 500 mg tablet (Tylenol Extra Strength) 1,000 mg PO Q6H PRN atorvastatin 10 mg tablet (Lipitor) 10 mg PO QPM fluticasone propionate 50 mcg/actuation nasal spray,suspension (Flonase Allergy Relief) 2 spray INTRANASAL DAILY PRN iron,carbonyl 65 mg-vitamin C 125 mg tablet,delayed release (Vitron-C) 1 tab PO QPM loratadine 10 mg tablet (Claritin) 10 mg PO DAILY PRN paroxetine HCl 20 mg tablet 20 mg PO QPM propranolol 80 mg capsule,24 hr,extended release (Inderal LA) 80 mg PO QPM omeprazole 20 mg capsule,delayed release 20 mg PO QPM ondansetron HCl 4 mg tablet (Zofran) 4 mg PO Q6H PRN riboflavin (vitamin B2) 100 mg tablet (Vitamin B-2) 200 mg PO QAM sumatriptan succinate 50 mg tablet 50 mg PO UD PRN tizanidine 4 mg tablet 4 mg PO DAILY PRN DO NOT take the morning of surgery loratadine 10 mg tablet (Claritin) 10 mg PO DAILY PRN riboflavin (vitamin B2) 100 mg tablet (Vitamin B-2) 200 mg PO QAM tizanidine 4 mg tablet 4 mg PO DAILY PRN Take morning of surgery With a small sip of water, OTHERWISE NOTHING TO EAT OR DRINK AFTER MIDNIGHT: acetaminophen 500 mg tablet (Tylenol Extra Strength) 1,000 mg PO Q6H PRN (okay to take up to 4 hours prior to surgery if needed) fluticasone propionate 50 mcg/actuation nasal spray,suspension (Flonase Allergy Relief) 2 spray INTRANASAL DAILY PRN (if needed) ondansetron HCl 4 mg tablet (Zofran) 4 mg PO Q6H PRN (if needed) sumatriptan succinate 50 mg tablet 50 mg PO UD PRN (if needed) Take evening before surgery acetaminophen 500 mg tablet (Tylenol Extra Strength) 1,000 mg PO Q6H PRN (if needed) atorvastatin 10 mg tablet (Lipitor) 10 mg PO QPM fluticasone propionate 50 mcg/actuation nasal spray,suspension (Flonase Allergy Relief) 2 spray INTRANASAL DAILY PRN (if needed) iron,carbonyl 65 mg-vitamin C 125 mg tablet,delayed release (Vitron-C) 1 tab PO QPM loratadine 10 mg tablet (Claritin) 10 mg PO DAILY PRN (if needed) paroxetine HCl 20 mg tablet 20 mg PO QPM propranolol 80 mg capsule,24 hr,extended release (Inderal LA) 80 mg PO QPM omeprazole 20 mg capsule,delayed release 20 mg PO QPM ondansetron HCl 4 mg tablet (Zofran) 4 mg PO Q6H PRN (if needed) sumatriptan succinate 50 mg tablet 50 mg PO UD PRN (if needed) tizanidine 4 mg tablet 4 mg PO DAILY PRN (if needed) Other Notes If you have any questions please call us at [phone] or [phone] or [phone] or [phone]
--- NOTE | 2020-11-15 10:46 | Anesthesiology Consultation ---
Date of Service November 15, 2020 Assessment & Plan (1) Encounter for pre-operative examination: Chart Review Chart Review: Acceptable Risk for Surgery (pending surgeon ordered PCP clearance and preop Covid testing results ) and Patient seen in Pre Admission Testing Awaiting surgeon ordered PCP clearance scheduled 11/28/20 Upon review of chart and discussion with Dr. Beatty - patient is an acceptable candidate for [facility] Program from anesthesia perspective. Patient is motivated, has good support and educated patient that surgeon's office should complete [facility] preop requirements- patient may proceed with outpatient TKA. Per PAT appt on 11/15/20, patient denies any recent travel or large group activities. No known Covid positive contacts or Covid related symptoms. No known Covid infection in the past 90 days. Preop Covid testing scheduled 12/12/20= will await results. Educated on importance of self quarantining, social distancing and wearing mask in public for the patient one week prior to surgery and after Covid testing done Ventral hernia repair- laparoscopic 07/08/17= done under [facility] with Grade 1 view with Glidescope #3 atraumatic x 1. ETT #7.0. Atraumatic intubation, standard induction Teaching & Discussion Pre-Anesthesia Teaching/Discussion Notes: Instructed NPO after midnight before surgery,except medications with 15 cc of water. Medication instructions provided according to the PAT guidelines. History Surgery Operation Date: 12/14/20 12:00 Proposed Procedures p Right Total Knee Arthroplasty - Honorio Rodríguez DO Height/Weight Height: 5 ft 7 in Weight: 115.5 kg Allergies Allergy/AdvReac Type Severity Reaction Status Date / Time morphine AdvReac Intermediate PT STATES Unverified 11/01/20 16:32 IT MAKES HER IRRIATABLE, N/V Penicillins AdvReac Unknown Vomiting Verified 11/01/20 16:32 propoxyphene AdvReac Unknown SEVERE Verified 11/01/20 16:32 HEADACHES amoxicillin AdvReac Vomiting Verified 11/01/20 16:32 Medications Home Medications Medication Instructions Recorded Confirmed Last Taken acetaminophen 500 mg tablet 1,000 mg PO Q6H PRN 08/21/19 11/01/20 Unknown (Tylenol Extra Strength) atorvastatin 10 mg tablet (Lipitor) 10 mg PO QPM 08/21/19 11/01/20 Unknown fluticasone propionate 50 2 spray INTRANASAL DAILY PRN 08/21/19 11/01/20 Unknown mcg/actuation nasal spray,suspension (Flonase Allergy Relief) iron,carbonyl 65 mg-vitamin C 125 1 tab PO QPM 08/21/19 11/01/20 Unknown mg tablet,delayed release (Vitron-C) loratadine 10 mg tablet (Claritin) 10 mg PO DAILY PRN 08/21/19 11/01/20 Unknown paroxetine HCl 20 mg tablet 20 mg PO QPM 08/21/19 11/01/20 Unknown propranolol 80 mg capsule,24 80 mg PO QPM 08/21/19 11/01/20 Unknown hr,extended release (Inderal LA) omeprazole 20 mg capsule,delayed 20 mg PO QPM 11/01/20 11/01/20 Unknown release ondansetron HCl 4 mg tablet 4 mg PO Q6H PRN 11/01/20 11/01/20 Unknown (Zofran) riboflavin (vitamin B2) 100 mg 200 mg PO QAM 11/01/20 11/01/20 Unknown tablet (Vitamin B-2) sumatriptan succinate 50 mg tablet 50 mg PO UD PRN 11/01/20 11/01/20 Unknown tizanidine 4 mg tablet 4 mg PO DAILY PRN 11/01/20 11/01/20 Unknown Past Medical History Medical History Anxiety Dyslipidemia GERD (gastroesophageal reflux disease) Well controlled and stable History of kidney stones No current or recent issues History of migraine headaches Osteoarthritis Palpitations Has had for "many years" -- holter monitor study in past wnl; 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 PONV (postoperative nausea and vomiting) Exercise / Class Metabolic Activity II 4-5 Yardwork/Stairs/Walk up hill (one flight of stairs - no chest pain or SOB ) Past Family History Family History Father Heart disease Mother Hypertension Sister Hypertension Past Surgical History Surgical History History of arthroscopic knee surgery Rt History of cholecystectomy History of colonoscopy History of endometrial ablation History of hernia surgery Hx of tonsillectomy Past Anesthesia History No Hx of Anesthesia Complications and No Family Hx of Anesthesia Complications History of PONV No Hx of Motion Sickness and History of PONV (improved with IV anti-nausea medication ) Social History Smoking Status: Never smoker Do You Dip or Chew Tobacco: No Hx Alcohol Use: No Hx Substance Use: No substance use type: does not use Review of Systems Patient denies chest pain, shortness of breath, dyspnea on exertion,, cough, wheezing, palpitations. No hx of seizures, stroke, DC, apnea/snoring. No hx of blood clots or blood transfusions Physical Exam Vital Signs VITALS BP 119/83 P 54 TEMP 98.2 SP02 99% RESP 16 Constitutional no acute distress ENMT Mouth: no TMJ clicking Thyromental Distance: > or= 3.5 Finger Breadths (3.5) Mallampati Class: I Missing molars Neck + thick neck; neck extension not limited Respiratory normal respiratory effort; no respiratory distress Auscultation: lungs clear to auscultation bilaterally; no wheezes Cardiovascular Rate/Rhythm: regular rate and regular rhythm Heart Sounds: no murmur Vessels: no carotid bruit Musculoskeletal Spine: no pain with cervical ROM Extremities: extremities normal to inspection Psychiatric Orientation: alert Lab Results Anesthesia Preop Results Results Anesthesia Widget: WBC 5.50 K/uL (4.8-10.8) 11/15/20 Hgb 12.1 g/dL (12.0-16.0) 11/15/20 Hct 38.7 % (37-47) 11/15/20 Plt 266 K/uL (130-400) 11/15/20 Na 140 mmol/L (136-145) 11/15/20 K 4.4 mmol/L (3.5-5.1) 11/15/20 Cl 108 mmol/L (98-107) H 11/15/20 CO2 28 mmol/L (21-32) 11/15/20 BUN 9 mg/dl (7-18) 11/15/20 Creat 0.68 mg/dl (0.6-1.2) 11/15/20 Glucose Level 100 mg/dl (70-99) H 11/15/20 PT 10.0 Seconds (9.0-12.0) 11/15/20 PTT 26.4 Seconds (21.0-31.0) 11/15/20 INR 1.0 (0.9-1.1) 11/15/20 HA1c 6.1 % (4.5-5.6) H 11/15/20 Urine Color Yellow 11/15/20 Urine Appearance Clear (Clear) 11/15/20 Urine pH 5.5 (4.5-7.5) 11/15/20 Urine Specific [place] 1.022 (1.000-1.030) 11/15/20 Urine Protein Negative (Negative) 11/15/20 Urine Glucose (UA) Negative (Negative) 11/15/20 Urine Ketones Negative (Negative) 11/15/20 Urine Blood Negative (Negative) 11/15/20 Urine Nitrite Negative (Negative) 11/15/20 Urine Bilirubin Negative (Negative) 11/15/20 Urine Urobilinogen Negative (Negative) 11/15/20 Urine Leukocyte Esterase 1+ (Negative) H 11/15/20 Urine WBC (Auto) 10-30 /hpf (0-5) H 11/15/20 Urine RBC (Auto) 0-4 /hpf (0-4) 11/15/20 Urine Hyaline Casts (Auto) 1-5 /lpf (0-5) 11/15/20 Urine Epithelial Cells (Auto) >30 /lpf (0-5) H 11/15/20 Urine Bacteria (Auto) Negative (Negative) 11/15/20 Blood Type A Negative 11/15/20 Antibody Screen NEGATIVE 11/15/20 Testing Electrocardiogram Date: 11/15/20 Sinus bradycardia with marked sinus arrhythmia at 59bpm Otherwise normal EKG per cardio Stress Test Date: 11/11/15 Type: exercise (ECHO) Resting EF: 55-59% Resting LV Function: normal Resting RWMA: + none Valvular Disease: MR (Mild) Stress ECHO is negative for inducible ischemia. No chest discomfort was reported. Exercise capacity is below average. Stress EKG response shows no evid ence of ischemia. MPHR 90%. 7.0 METS achieved. RV normal size and function. Left atrium mildly enlarged. Grade 1 diastolic dysfunction. Interatrial septum bows towards the right atrium consistent with high left atrial pressure. No evidence of pulmonary hypertension.
--- NOTE | 2020-11-29 12:46 | History & Physical Report ---
Date of Service November 29, 2020 date of surgery: 12/14/20 Procedure: Right Total Knee Arthroplasty Assessment & Plan (1) Arthritis of right knee: Plan: presents for follow up of right knee pain, had no relief from prior visco injection, also had prior knee scope with no relief. we discussed options, she would like to proceed with right knee patient matched knee at [facility]. she would like to do outpatient joint program. ASA 81mg po bid x 1 month with HHPT. The risks and benefits have been discussed including, but not limited to, risk of infection, nerve injury, stiffness, loss of motion, failure to improve, etc. Reasonable outcomes and options of treatment were discussed. An explanation of appropriate alternatives to the procedure that may be advantageous were discussed and their risks and benefits, as well as the risks and benefits of not proceeding with treatment. I offered to answer any additional inquiries concerning the treatment involved. All the patient's questions were answered. The patient is agreeable, understanding of the treatment plan and alternatives, and wishes to proceed with the treatment plan. History of Present Illness Chief Complaint: Right knee pain Primary Care Provider: Shirin Harkins MD Jessi is a 60 year old female who complains of right knee pain, presents for pre-op evaluation prior to a right total knee replacement by Dr Rodríguez at [facility]. she complains of pain and stiffness in her right knee. she has tried prior visco injections as well as NSAIDs without relief, she had prior right knee scope as well. in 2018 she underwent Right knee arthroscopic partial medial meniscectomy Partial lateral meniscectomy Chondroplasty medial femoral condyle, medial tibial plateau and patellofemoral joint. she states that the symptoms occur constantly with intermittent worsening. Currently the patient states that the symptoms are moderate-severe. The pain is described as aching, sharp and throbbing. Her symptoms are aggravated by ascending stairs, daily activities, first steps while awake walking. Allergies Allergy/AdvReac Type Severity Reaction Status Date / Time morphine AdvReac Intermediate PT STATES Unverified 11/01/20 16:32 IT MAKES HER IRRIATABLE, N/V Penicillins AdvReac Unknown Vomiting Verified 11/01/20 16:32 propoxyphene AdvReac Unknown SEVERE Verified 11/01/20 16:32 HEADACHES amoxicillin AdvReac Vomiting Verified 11/01/20 16:32 Home Medications Medication Instructions Recorded Confirmed Type acetaminophen 500 mg tablet 1,000 mg PO Q6H PRN 08/21/19 11/01/20 History (Tylenol Extra Strength) atorvastatin 10 mg tablet (Lipitor) 10 mg PO QPM 08/21/19 11/01/20 History fluticasone propionate 50 2 spray INTRANASAL DAILY PRN 08/21/19 11/01/20 History mcg/actuation nasal spray,suspension (Flonase Allergy Relief) iron,carbonyl 65 mg-vitamin C 125 1 tab PO QPM 08/21/19 11/01/20 History mg tablet,delayed release (Vitron-C) loratadine 10 mg tablet (Claritin) 10 mg PO DAILY PRN 08/21/19 11/01/20 History paroxetine HCl 20 mg tablet 20 mg PO QPM 08/21/19 11/01/20 History propranolol 80 mg capsule,24 80 mg PO QPM 08/21/19 11/01/20 History hr,extended release (Inderal LA) omeprazole 20 mg capsule,delayed 20 mg PO QPM 11/01/20 11/01/20 History release ondansetron HCl 4 mg tablet 4 mg PO Q6H PRN 11/01/20 11/01/20 History (Zofran) riboflavin (vitamin B2) 100 mg 200 mg PO QAM 11/01/20 11/01/20 History tablet (Vitamin B-2) sumatriptan succinate 50 mg tablet 50 mg PO UD PRN 11/01/20 11/01/20 History tizanidine 4 mg tablet 4 mg PO DAILY PRN 11/01/20 11/01/20 History Past Med/Surg History Medical History Anxiety Dyslipidemia GERD (gastroesophageal reflux disease) Well controlled and stable History of kidney stones No current or recent issues History of migraine headaches Osteoarthritis Palpitations Has had for "many years" -- holter monitor study in past wnl; no patient biller PONV (postoperative nausea and vomiting) Surgical History History of arthroscopic knee surgery Rt History of cholecystectomy History of colonoscopy History of endometrial ablation History of hernia surgery Hx of tonsillectomy Family History Father Heart disease Mother Hypertension Sister Hypertension Social History Smoking Status: Never smoker Second Hand Exposure: Yes; Hx Alcohol Use: No Hx Substance Use: No Preferred Language: Nauruan Communication Ability: Effective Nurse Informaticist Required: No Beliefs That Will Affect Care: None marital status: current occupational status: employed current occupation: [employer] How many Children do You have: 1 Feels Safe at Home: Yes Assistive Devices: Glasses Review of Systems Review of Systems: All systems reviewed & are unremarkable except as noted in HPI & below Constitutional: no fever, no chills and no sweats Respiratory: no cough and no dyspnea Cardiovascular: no chest pain, no dyspnea and no orthopnea Gastrointestinal: no abdominal pain, no nausea and no vomiting Musculoskeletal: as per Subjective / HPI Physical Exam Physical Exam: HT: 5ft 7in WT: 115.5kg Constitutional: WD/WN, vitals as above no acute distress Respiratory: normal respiratory effort, lungs clear to auscultation no respiratory distress, no labored breathing and does not use accessory muscles Cardiovascular: RRR, no murmur, no edema Gastrointestinal (Abdomen): normal bowel sounds, soft, nontender, no hepatosplenomegaly Musculoskeletal: Knee: + knee abnormal to inspection (RIGHT KNEE- ), + effusion (+1 effusion), + surgical incision (well healed portals), + limited ROM of knee (ROM 0/3/110), + knee ROM with crepitation, + joint line tenderness (medial joint line) and + Ben's sign positive; no deformity, no skin erythema, no ecchymosis, no valgus laxity, no varus laxity, anterior drawer test negative, Navid's sign negative and pivot shift test negative Results & Data Results & Data ([facility]) Diagnostic Findings Right Knee X-ray: Right knee series showing advanced degenerative changes to the right knee, narrowing of the medial compartment and patello-femoral joint with patellar spurring noted, findings showing joint space narrowing of the medial compartment and patello-femoral joint, osteophyte formation and subchondral sclerosis noted. overall varus alignment. no acute bony pathology noted.
[2020-12-14] MEDS ORDERED: TRANEXAMIC ACID 1,000 MG **IV Pre-op IV SCH (06:00)
[2020-12-14] MEDS ORDERED: CeleBREX 200 MG CAP PO SCH (06:00)
[2020-12-14] MEDS ORDERED: FAMOTIDINE 20 MG TAB PO SCH (06:00)
[2020-12-14] MEDS ORDERED: ROPIVACAINE 0.5% HCL/PF 150 MG, BUPIVACAINE 0.75% MPF 20 ML, EPINEPHrine 30MG/30ML (OR ... INFIL SCH (06:00)
[2020-12-14] MEDS ORDERED: GABAPENTIN 300 MG CAP PO SCH (06:00)
[2020-12-14] MEDS ORDERED: ceFAZolin 2000MG 2,000 MG/15 ML SYR IV SCH (06:00)
[2020-12-14] MEDS ORDERED: ACETAMINOPHEN 500 MG TAB PO SCH (06:00)
[2020-12-14] MEDS ORDERED: dexAMETHasone 4 MG TAB PO SCH (06:00)
[2020-12-14] MEDS ORDERED: oxyCODONE HCL 10 MG TABCR (OxyCONTIN) PO SCH (06:00)
[2020-12-14] MEDS ORDERED: METOCLOPRAMIDE HCL 10 MG TABLET PO SCH (06:00)
[2020-12-14] MEDS ORDERED: LR 500ML BOLUS, THEN 15ML/HR IV SCH (06:00)
[2020-12-14] MEDS ORDERED: MEPIVACAINE HCL 1.5% 30 ML VIAL ONE (06:42)
[2020-12-14] MEDS ORDERED: SODIUM CHLORIDE 0.9% INJ 10 ML VIAL ONE (06:42)
[2020-12-14] MEDS ORDERED: EPINEPHrine INJ 1 MG/ML AMP ONE (06:43)
[2020-12-14] MEDS ORDERED: ROPIVACAINE 0.5% 5 MG/ML 30 ML VIAL ONE (06:43)
[2020-12-14] MEDS ORDERED: MIDAZOLAM HCL 1 MG/ML 2ML VIAL ONE (06:57)
[2020-12-14] MEDS ORDERED: fentaNYL citrate 100 MCG/2 ML VIAL ONE (06:57)
[2020-12-14] MEDS ORDERED: PROPOFOL IV EMULSION 10 MG/ML 20 ML VIAL IV ONE (07:00)
[2020-12-14] MEDS ORDERED: ONDANSETRON INJ 2 MG/ML 2 ML VIAL ONE (07:00)
[2020-12-14] MEDS ORDERED: ORTHO JOINT ANESTHETIC ONE (07:07)
[2020-12-14] MEDS ORDERED: CLINDAMYCIN 600 MG/54 ML D5W IV ONE (07:08)
[2020-12-14] MEDS ORDERED: LIDOCAINE 2%/EPINEPHRINE 1:200,000 20 ML SDV ONE (07:10)
--- NOTE | 2020-12-14 07:15 | History & Physical Bridge Note ---
Date of Service December 14, 2020 History & Physical Bridge Note I have examined the patient, reviewed the History & Physical and in the interval since the performance of the History & Physical I have noted the following changes of clinical significance: no changes noted
[2020-12-14] MEDS ORDERED: TRANEXAMIC ACID / 0.7% NACL 1,000 MG/100 ML BAG IV STA (07:22)
[2020-12-14] MEDS ORDERED: TRANEXAMIC ACID 1,000 MG **IV Intra-op IV SCH (07:30)
[2020-12-14] MEDS ORDERED: MEPERIDINE HCL 25 MG/ML CARP/VIAL IV PRN (07:31)
[2020-12-14] MEDS ORDERED: ePHEDrine sulfate 50 MG/ML AMP IV PRN (07:31)
[2020-12-14] MEDS ORDERED: ONDANSETRON INJ 2 MG/ML 2 ML VIAL IV PRN ×2 (07:31→16:54)
[2020-12-14] MEDS ORDERED: PHENYLEPHRINE 100MCG/ML 5ML SYR IV PRN (07:31)
[2020-12-14] MEDS ORDERED: fentaNYL citrate 100 MCG/2 ML VIAL IV PRN (07:31)
[2020-12-14] MEDS ORDERED: HYDROmorphone INJ 1 MG/ML SYRINGE IV PRN ×2 (07:31→16:54)
[2020-12-14] MEDS ORDERED: LABETALOL HCL IV 5 MG/ML 20ML IV PRN (07:31)
[2020-12-14] MEDS ORDERED: ATROPINE SULFATE 0.1 MG/ML 10ML SYR IV PRN (07:31)
[2020-12-14] MEDS ORDERED: KETAMINE 50 MG/5 ML SYRINGE ONE (08:42)
[2020-12-14] MEDS ORDERED: KETOROLAC 30 MG/ML VIAL ONE (09:20)
[2020-12-14] MEDS ORDERED: ePHEDrine sulfate 50 MG/ML SYR ONE (09:29)
--- NOTE | 2020-12-14 09:50 | Operative Report ---
Post Operative Report Pre & Post Diagnosis Operation Date: 12/14/20 08:05 Pre-Op Diagnosis: Unilateral Primary Osteoarthritis right knee Post-Op Diagnosis: Unilateral Primary Osteoarthritis right knee I identified the patient and participated in the time-out.: Yes Procedure Operation Date: 12/14/20 08:05 Actual Procedures utilizing [employer] persona total knee arthroplasty size femur 8 narrow tibia EE medial constrained patella 31 polythirteen medial constrained p Right Total Knee Arthroplasty(Right) - Honorio Rodríguez DO Surgeon Honorio Rodríguez DO Shipping Coordinator [employer] VERDUZ[employer] Estimated Blood Loss 5 Findings Consistent with Post-Op Diagnosis Patient presents with severe end-stage DJD 5 degree flexion contracture varus alignment subchondral sclerosis marginal osteophytes moderate to large effusion eburnated [id number] with subchondral cystic changes Specimens Bone and cartilage Drains Medium bore Hemovac Anesthesia Type MAC Spinal Regional Complications none Disposition Accompanied Patient To Recovery: No Disposition: Recovery Room Indications Patient presents with severe end-stage DJD right knee no response to conservative management above intraoperative findings no time surgery. Patient failed attempts at the conservative management clinic physical therapy anti- inflammatories relative rest activity modification corticosteroid injection viscosupplementation the above intraoperative findings were noted Description of Procedure After proper prepping and draping of the Right lower extremity anterior midline incision was made over the region of the extensor extensor mechanism after meticulous hemostasis was obtained and maintained in subcutaneous tissues a medial parapatellar incision was made The patella was subluxed lateralward the medial lateral gutter were cleaned from any hypertrophic synovitis and scar tissue of the distal femoral block was placed and the distal femoral osteotomy cut was made subsequently the chamfers anterior and posterior osteotomy cuts were made utilizing the 4-in-1 block the tibia was subsequently subluxed anteriorward medial and ateral meniscal remnants were excised in their entirety remnants of the anterior and posterior cruciate ligaments were excised in their entirety excellent exposure of the proximal tibia was obtained the tibial osteotomy guide was placed on the proximal tibial osteotomy cut was made once again the knee was irrigated with copious amounts of sterile saline solution the patella was subsequently everted lateralward thickened scar tissue around the patella was removed the patella was subsequently cut utilizing a freehand technique and was drilled prepared for final preparation and placement of patella socially flexion-extension gaps were checked and the equal and symmetric trials were placed to the appropriate femoral and tibial trials with poly-spacer being placed for equal flexion and extension gaps and full range of motion including extension to 0 and flexion to 140 the trial components after having been taken to recovery range of motion was subsequently removed meticulous h emostasis was obtained and maintained subsequently a knee block injection of joint cocktail including ropivacaine 0.5% 150 mg. Bupivacaine 0.5% epinephrine 1-200,030 mL's toradol 30 mg dexamethasone 4 mg ketamine 10 mg clonidine 100 micrograms normal saline solution 30 mg was infiltrated into the soft tissues of the posterior knee medial lateral gutters and periosteal synovium special attention was paid to protect neurovascular structures at all times subsequently trial components having been removed the knee was irrigated with sterile saline solution. debris was removed the proximal tibia was subsequently prepared and was made ready for the placement of the tibial component tibial component was also cemented and tamped into position the femoral component was subsequently placed and cemented in the position the patellar component was subsequently cemented in position because hemostasis once again obtained and maintained wound having been thoroughly irrigated with debridement and debridement lavage was performed as well as a medial parapatellar incision closed with #1 Vicryl in interrupted fashion subcutaneous was closed with #2 Vicryl skin was closed with skin clips. PA-C was necessary for prepping and drapping as well as wound closure of deep fascia Sub cutaneous tissue and skin and was necessary for the case. A sterile compressive dressing was placed patient was taken to recovery in stable condition of report dictated by Marcos I attest to the content of the Intraoperative Record and any orders documented therein. Any exceptions are noted below. I attest to the content of the Intraoperative Record and any orders documented therein. Any exceptions are noted below.
[2020-12-14] MEDS ORDERED: HYDROmorphone INJ 0.5 MG/0.5 ML SYR IV PRN (10:26)
[2020-12-14] MEDS ORDERED: HYDROCODONE/ACETAMOPHEN 5/325MG TAB PO PRN ×2 (10:26)
[2020-12-14] MEDS ORDERED: SODIUM CHLORIDE 0.9% 1000ML 1,000 ML IV SCH (10:30)
--- NOTE | 2020-12-14 10:50 | XRay Report ---
XR knee RT 1 or 2V routine CLINICAL HISTORY: Postoperative evaluation. COMPARISON: MRI of the right knee August 12, 2014. FINDINGS: Alignment of the total right knee arthroplasty is anatomic. There is no periprosthetic fra cture or unexpected radiopaque foreign body. There are surgical drains. IMPRESSION: Expected findings following total right knee arthroplasty. ACT 112: Negative or not required by law. Electronically signed by: Arnaldo Dawson M.D. 12/14/2020 10:49 AM
--- NOTE | 2020-12-14 12:04 | Anesthesiology Progress Note ---
Date of Service December 14, 2020 Anesthesia Post Procedure Vital Signs Vital Signs: Temp Pulse Pulse Resp BP Pulse Ox 12/14/20 11:35 92 H 16 100/68 95 12/14/20 11:05 36.9 C 91 H 16 124/68 93 12/14/20 10:55 36.5 C 76 12 123/68 95 12/14/20 10:45 59 L 12 118/72 96 12/14/20 10:35 65 17 129/79 100 12/14/20 10:25 36.9 C 67 12 134/78 96 12/14/20 06:28 37.1 C 71 18 139/84 97 Pain Intensity Right Thigh: Pain Intensity: 3 Transfer of Care Handoff Completed per policy Notes Mental Status: alert / awake / arousable Patient Amnestic to Procedure: Yes Nausea / Vomiting: adequately controlled Pain: adequately controlled Airway Patency, RR, SpO2: stable & adequate BP & HR: stable & adequate Hydration State: stable & adequate Neuraxial Anesthesia: was administered and sensory block is resolving Anesthetic Complications: no major complications apparent and Pt Satisfied with anesthetic care
--- NOTE | 2020-12-14 15:23 | Communication Note ---
Date of Service: December 14, 2020 The patient has numbness/weakness in her right foot from the block. Dr. Hall and Dr. Cho are aware and will evaluate her if she is to be di scharged today.
[2020-12-14] MEDS ORDERED: MAGNESIUM HYDROXIDE SUSP 30 ML UDC PO PRN (16:54)
[2020-12-14] MEDS ORDERED: LORATADINE 10 MG TAB PO PRN (16:54)
[2020-12-14] MEDS ORDERED: METOCLOPRAMIDE HCL INJ 5 MG/ML 2 ML VIAL IV PRN (16:54)
[2020-12-14] MEDS ORDERED: diphenhydrAMINE Capsule 25 MG CAP PO PRN (16:54)
[2020-12-14] MEDS ORDERED: NALOXONE HCL 0.4 MG/1 ML VIAL/CARP IV PRN (16:54)
[2020-12-14] MEDS ORDERED: oxyCODONE HCL IR 5 MG TAB (IMMEDIATE RELEASE) PO PRN (16:54)
[2020-12-14] MEDS ORDERED: SUMAtriptan succinate 50 MG TAB PO PRN (16:54)
[2020-12-14] MEDS ORDERED: tiZANidine HCL 4 MG TABLET PO PRN (16:54)
[2020-12-14] MEDS ORDERED: bisacodyL 10 MG SUPP PR PRN (16:54)
--- NOTE | 2020-12-14 17:09 | Communication Note ---
Date of Service: December 14, 2020 Decision was made to admit the patient as she had residual local anesthetic effects that prevented effective physical therapy allowing her to go home.
[2020-12-14] MEDS ORDERED: FLUTICASONE PROPIONATE NA SPR 16 GM BTL PRN (17:15)
[2020-12-14] MEDS: KETOROLAC TROMETHAMINE 15 MG/ML VIAL IV SCH ×2 (17:42→23:47)
[2020-12-14] MEDS: CLINDAMYCIN 600 MG in DEXTROSE 5% 50 ML IV SCH (18:25)
[2020-12-14] MEDS: SODIUM CHLORIDE 0.9% 1000ML 1,000 ML IV SCH (18:26)
[2020-12-14] MEDS ORDERED: PANTOprazole 40 MG TAB PO SCH (21:00)
[2020-12-14] MEDS ORDERED: PARoxetine HCL 20 MG TAB PO SCH (21:00)
[2020-12-14] MEDS ORDERED: PROPRANOLOL HCL LA 80 MG CAPCR PO SCH (21:00)
[2020-12-14] MEDS ORDERED: NON-FORMULARY MEDICATION (Iron,Carbonyl-Vitamin C [Vitron-C] 65 mg iron- 125 mg Tablet,Del PO SCH (21:00)
[2020-12-14] MEDS ORDERED: SENNA 8.6 MG TAB PO SCH (21:00)
[2020-12-14] MEDS ORDERED: ATORVASTATIN 10 MG TAB PO SCH (21:00)
[2020-12-14] MEDS: DOCUSATE SODIUM 100 MG CAP PO SCH (21:21)
[2020-12-14] MEDS: ASPIRIN 81 MG ECTAB PO SCH (21:21)
[2020-12-14] MEDS: ACETAMINOPHEN 500 MG TAB PO SCH (21:22)
[2020-12-15] MEDS: CLINDAMYCIN 600 MG in DEXTROSE 5% 50 ML IV SCH (01:56)
[2020-12-15] MEDS: SODIUM CHLORIDE 0.9% 1000ML 1,000 ML IV SCH (03:39)
[2020-12-15] MEDS: ACETAMINOPHEN 500 MG TAB PO SCH (05:23)
[2020-12-15] MEDS: KETOROLAC TROMETHAMINE 15 MG/ML VIAL IV SCH ×2 (05:23→13:20)
[2020-12-15] MEDS ORDERED: CLINDAMYCIN 600 MG/54 ML BAG IV SCH (06:00)
[2020-12-15 06:20] LABS: Hemoglobin 11.8 g/dL (12.0-16.0); Mean Corpuscular Hgb Conc 31.9 g/dL (32-36); Mean Corpuscular Volume 87.9 fL (80-100); Mean Platelet Volume 10.7 fL (7.4-10.4); Platelet Count 282 K/uL (130-400); RDW Coefficient of Variation 14.4 % (11.5-14.5); RDW Standard Deviation 46.4 fL (36.4-46.3); Red Blood Count 4.21 M/uL (4.2-5.4); White Blood Count 13.26 K/uL (4.8-10.8)
[2020-12-15 06:49] LABS: BUN Creatinine Ratio 12.2 (10-20); Calcium 9.8 mg/dl (8.5-10.1); Creatinine Clr Calc Pharmacy 87.6 ml/min; Est GFR (African American) 79.6 ml/min; Est GFR (Non-African American) 68.6 ml/min; Potassium 4.2 mmol/L (3.5-5.1)
--- NOTE | 2020-12-15 07:17 | Orthopedic Progress Note ---
Date of Service December 15, 2020 Assessment & Plan (1) History of total right knee replacement: Plan: POD #1 s/p Right TKA pt/ot dvt proph with BALBIR/SCD/ASA plan for d/c home with home health PT mild foot drop, likely secondary to intraop injection, will cont to observe. has improved over the past 12 hours. Admission and Anticipated Discharge Date Admission Date: December 14, 2020 Subjective POD #1 s/p Right TKA Review of Systems Constitutional: no fever, no chills and no sweats Respiratory: no cough and no dyspnea Cardiovascular: no chest pain and no dyspnea Gastrointestinal: no abdominal pain, no nausea and no vomiting Physical Exam Physical Exam: Vital Signs Temp Pulse Pulse Resp BP Pulse Ox 12/15/20 03:17 36.6 C 61 17 123/79 97 12/14/20 23:06 36.5 C 50 L 17 116/71 93 12/14/20 20:04 36.4 C L 74 20 108/68 95 12/14/20 14:05 93 H 16 113/64 93 12/14/20 12:05 37 C 92 H 16 104/63 95 12/14/20 11:35 92 H 16 100/68 95 12/14/20 11:05 36.9 C 91 H 16 124/68 93 12/14/20 10:55 36.5 C 76 12 123/68 95 12/14/20 10:45 59 L 12 118/72 96 12/14/20 10:35 65 17 129/79 100 12/14/20 10:25 36.9 C 67 12 134/78 96 Intake and Output 12/14/20 12/15/20 12/15/20 22:59 06:59 14:59 Intake Total 154 / 2778 974 / 2778 Output Total 500 / 1150 625 / 1150 Balance -346 / 1628 349 / 1628 Intake: IV 154 / 1228 974 / 1228 Clindamycin 60 0 mg In Dextrose 54 / 108 54 / 108 5% 50 ml @ 100 mls/hr IV Q8H [facility] Rx#:[id number] Sodium Chlorid e 0.9% 1000ML 1, 920 / 920 000 ml @ 100 m ls/hr IV .Q10H [facility] Rx#:[id number] Tranexamic Aci d / 0.7% NaCl 1, 100 / 100 000 mg In 100 ml @ 600 mls/hr IV TODAY@0600 [facility] Rx#:[id number] Output: Urine 450 / 950 500 / 950 Drain Output 50 / 195 125 / 195 Right Knee 50 / 195 125 / 195 Other: Weight 115.7 kg Constitutional: WD/WN, vitals as above Musculoskeletal: Right Leg: NVDI, calf SNT, negative jacki sign. DP palpable, dressing clean dry and intact. weak dorsiflexion this am, plantar flexion 5/5. Results & Data ([facility]) Vital Signs (Past 12 Hours) Vital Signs Temp Pulse Resp BP Pulse Ox 12/15/20 03:17 36.6 C 61 17 123/79 97 12/14/20 23:06 36.5 C 50 L 17 116/71 93 12/14/20 20:04 36.4 C L 74 20 108/68 95 Diagnostic Findings Laboratory Results WBC 13.26 K/uL (4.8-10.8) H 12/15/20 05:49 RBC 4.21 M/uL (4.2-5.4) 12/15/20 05:49 Hgb 11.8 g/dL (12.0-16.0) L 12/15/20 05:49 Hct 37.0 % (37-47) 12/15/20 05:49 MCV 87.9 fL (80-100) 12/15/20 05:49 MCH 28.0 pg (25-34) 12/15/20 05:49 MCHC 31.9 g/dL (32-36) L 12/15/20 05:49 RDW Std Deviation 46.4 fL (36.4-46.3) H 12/15/20 05:49 RDW Coeff of Sourav 14.4 % (11.5-14.5) 12/15/20 05:49 Plt Count 282 K/uL (130-400) 12/15/20 05:49 MPV 10.7 fL (7.4-10.4) H 12/15/20 05:49 Sodium 139 mmol/L (136-145) 12/15/20 05:49 Potassium 4.2 mmol/L (3.5-5.1) 12/15/20 05:49 Chloride 108 mmol/L (98-107) H 12/15/20 05:49 Carbon Dioxide 25 mmol/L (21-32) 12/15/20 05:49 Anion Gap 6.0 (3-11) 12/15/20 05:49 BUN 11 mg/dl (7-18) 12/15/20 05:49 Creatinine 0.92 mg/dl (0.6-1.2) 12/15/20 05:49 Est Cr Clr Drug Dosing 87.6 ml/min 12/15/20 05:49 Est GFR ( Amer) 79.6 ml/min 12/15/20 05:49 Est GFR (Non-Af Amer) 68.6 ml/min 12/15/20 05:49 BUN/Creatinine Ratio 12.2 (10-20) 12/15/20 05:49 Glucose 116 mg/dl (70-99) H 12/15/20 05:49 Calcium 9.8 mg/dl (8.5-10.1) 12/15/20 05:49 Impressions Knee X-Ray 12/14/20 10:26 XR knee RT 1 or 2V routine CLINICAL HISTORY: Postoperative evaluation. COMPARISON: MRI of the right knee August 12, 2014. FINDINGS: Alignment of the total right knee arthroplasty is anatomic. There is no periprosthetic fracture or unexpected radiopaque foreign body. There are surgical drains. IMPRESSION: Expected findings following total right knee arthroplasty. ACT 112: Negative or not required by law. Electronically signed by: Arnaldo Dawson M.D. 12/14/2020 10:49 AM
[2020-12-15] MEDS: ASPIRIN 81 MG ECTAB PO SCH (07:53)
[2020-12-15] MEDS: DOCUSATE SODIUM 100 MG CAP PO SCH (07:54)
[2020-12-15] MEDS ORDERED: MULTIVITAMIN TAB PO SCH (09:00)
[2020-12-15] MEDS ORDERED: NON-FORMULARY MEDICATION (Riboflavin (Vitamin B2) [Vitamin B-2] 100 mg Tablet) PO SCH (09:00)
[2020-12-15] MEDS ORDERED: CeleBREX 200 MG CAP PO SCH (21:00)
--- NOTE | 2020-12-19 11:25 | Discharge Summary ---
Date of Service December 19, 2020 Admission HPI Per Admitting Provider Jessi is a 60 year old female who complains of right knee pain, presents for pre-op evaluation prior to a right total knee replacement by Dr Rodríguez at [facility]. she complains of pain and stiffness in her right knee. she has tried prior visco injections as well as NSAIDs without relief, she had prior right knee scope as well. in 2018 she underwent Right knee arthroscopic partial medial meniscectomy Partial lateral meniscectomy Chondroplasty medial femoral condyle, medial tibial plateau and patellofemoral joint. she states that the symptoms occur constantly with intermittent worsening. Currently the patient states that the symptoms are moderate-severe. The pain is described as aching, sharp and throbbing. Her symptoms are aggravated by ascending stairs, daily activities, first steps while awake walking. Admission Exam Per Admitting Provider Physical Exam: HT: 5ft 7in WT: 115.5kg Constitutional: WD/WN, vitals as above no acute distress Respiratory: normal respiratory effort, lungs clear to auscultation no respiratory distress, no labored breathing and does not use accessory muscles Cardiovascular: RRR, no murmur, no edema Gastrointestinal (Abdomen): normal bowel sounds, soft, nontender, no hepatosplenomegaly Musculoskeletal: Knee: + knee abnormal to inspection (RIGHT KNEE- ), + effusion (+1 effusion), + surgical incision (well healed portals), + limited ROM of knee (ROM 0/3/110), + knee ROM with crepitation, + joint line tenderness (medial joint line) and + Ben's sign positive; no deformity, no skin erythema, no ecchymosis, no valgus laxity, no varus laxity, anterior drawer test negative, Navid's sign negative and pivot shift test negative Principal Diagnosis Osteoarthritis right knee Discharge Data Allergies Allergy/AdvReac Type Severity Reaction Status Date / Time morphine AdvReac Intermediate PT STATES Unverified 11/01/20 16:32 IT MAKES HER IRRIATABLE, N/V Penicillins AdvReac Unknown Vomiting Verified 11/01/20 16:32 propoxyphene AdvReac Unknown SEVERE Verified 11/01/20 16:32 HEADACHES amoxicillin AdvReac Vomiting Verified 11/01/20 16:32 Procedures Performed Operation Date: 12/14/20 08:05 Actual Procedures p Right Total Knee Arthroplasty(Right) - Honorio Rodríguez DO Ordered Studies 12/14/20 05:00 US - OR guided needle placemen Routine Hospital Course (1) History of total right knee replacement: Date of Service December 15, 2020 Assessment & Plan (1) History of total right knee replacement: Plan: POD #1 s/p Right TKA pt/ot dvt proph with BALBIR/SCD/ASA plan for d/c home with home health PT mild foot drop, likely secondary to intraop injection, will cont to observe. has improved over the past 12 hours. Admission and Anticipated Discharge Date Admission Date: December 14, 2020 Subjective POD #1 s/p Right TKA Review of Systems Constitutional: no fever, no chills and no sweats Respiratory: no cough and no dyspnea Cardiovascular: no chest pain and no dyspnea Gastrointestinal: no abdominal pain, no nausea and no vomiting Physical Exam Physical Exam: Vital Signs Temp Pulse Pulse Resp BP Pulse Ox 12/15/20 03:17 36.6 C 61 17 123/79 97 12/14/20 23:06 36.5 C 50 L 17 116/71 93 12/14/20 20:04 36.4 C L 74 20 108/68 95 12/14/20 14:05 93 H 16 113/64 93 12/14/20 12:05 37 C 92 H 16 104/63 95 12/14/20 11:35 92 H 16 100/68 95 12/14/20 11:05 36.9 C 91 H 16 124/68 93 12/14/20 10:55 36.5 C 76 12 123/68 95 12/14/20 10:45 59 L 12 118/72 96 12/14/20 10:35 65 17 129/79 100 12/14/20 10:25 36.9 C 67 12 134/78 96 Intake and Output 12/14/20 12/15/20 12/15/20 22:59 06:59 14:59 Intake Total 154 / 2778 974 / 2778 Output Total 500 / 1150 625 / 1150 Balance -346 / 1628 349 / 1628 Intake: IV 154 / 1228 974 / 1228 Clindamycin 60 0 mg In Dextrose 54 / 108 54 / 108 5% 50 ml @ 100 mls/hr IV Q8H [facility] Rx#:[id number] Sodium Chlorid e 0.9% 1000ML 1, 920 / 920 000 ml @ 100 m ls/hr IV .Q10H [facility] Rx#:[id number] Tranexamic Aci d / 0.7% NaCl 1, 100 / 100 000 mg In 100 ml @ 600 mls/hr IV TODAY@0600 [facility] Rx#:[id number] Output: Urine 450 / 950 500 / 950 Drain Output 50 / 195 125 / 195 Right Knee 50 / 195 125 / 195 Other: Weight 115.7 kg Constitutional: WD/WN, vitals as above Musculoskeletal: Right Leg: NVDI, calf SNT, negative jacki sign. DP palpable, dressing clean dry and intact. weak dorsiflexion this am, plantar flexion 5/5. Results & Data ([facility]) Vital Signs (Past 12 Hours) Vital Signs Temp Pulse Resp BP Pulse Ox 12/15/20 03:17 36.6 C 61 17 123/79 97 12/14/20 23:06 36.5 C 50 L 17 116/71 93 12/14/20 20:04 36.4 C L 74 20 108/68 95 Diagnostic Findings Laboratory Results WBC 13.26 K/uL (4.8-10.8) H 12/15/20 05:49 RBC 4.21 M/uL (4.2-5.4) 12/15/20 05:49 Hgb 11.8 g/dL (12.0-16.0) L 12/15/20 05:49 Hct 37.0 % (37-47) 12/15/20 05:49 Total Time Total Time Spent Total Time Spent (In Minutes): 5 Discharge Plan Discharge Items Patient Disposition: Home - Home Health Services Reason For Visit: Unilateral Primary Osteoarthritis Discharge Diagnosis: Osteoarthritis right knee Activity: Per Instructions section Weightbearing Comment: As tolerated with walker Non-emergency contact: Surgeon Call non-emergency contact if: your pain is not controlled, your temperature is above 101.5, your wound has increased redness and your wound has increased drainage Follow-up/Referrals: [facility] [Outside] (Per surgeon's office) Honorio Rodríguez DO [Surgeon] - (Follow-up in 10 to 14 days from the day of your surgery for wound check) Shirin Harkins MD [Primary Care Provider] - Diet: Regular Addtl Attending Provider Instructions: Your pain medications have already been prescribed and sent to your pharmacy. These medications will differ between patients. He will have a narcotic pain medication, Tylenol, aspirin, and possibly an antibiotic prescribed for you. These should already be at your pharmacy. Home health services will be providing physical therapy and nursing care. ACTIVITY RECOMMENDATIONS: SELF CARE INSTRUCTIONS AFTER TOTAL KNEE REPLACEMENT A. You may need to continue a physical therapy program after discharge from the hospital. There are several options available to you. Your doctor will assist you in selecting the best one for you. 1. An out-patient facility 2 to 3 times a week for therapy or home therapy. 2. Continue working on all exercises taught to you in the hospital. Your goals should be to increase bending of your knee to 90 degrees and beyond and to fully straighten your knee. B. You may progress at your own pace from walking with a walker or crutches to a cane; then to no assistive devices. C. Make walking a part of your daily routine. Be up as much as comfortable with rest periods throughout the day. Rest with leg elevation is very important. Use the ice wrap frequently for the first 3-4 weeks. D. There are no restrictions on activities. You may ride in a car, shop, participate in insole tacker and all social activities. E. Wear the long elastic stockings (BALBIR hose) 20 hours a day for 2 weeks after surgery. They can be removed several times a day for laundering and for a bath. F. You may shower, no tub baths until cleared by your doctor. SPECIAL CARE INSTRUCTIONS: VERY IMPORTANT TO READ AND REVIEW A. There are a few signs you need to watch for after you are home. Call [facility] if you notice any of the followin. Increased severe knee pain. Some pain is expected especially when you exercise. 2. Increased swelling in your leg or knee; pain or swelling of the calf muscle in either lower leg. 3. Any fluid drainage from the incision. 4. Shortness of breath or chest pain. B. Please call [facility] at if you have any concerns or questions about your operation or recovery. The doctor or his nurse will return your call promptly. C. You must take antibiotics before dental work, bladder, bowel or other surgery. Your doctor will provide you with a permanent care to carry describing this precaution. IMPORTANT: * REMEMBER TO TAKE ASPIRIN, 81 MG, TWICE DAILY FOR 4 WEEKS UNLESS OTHERWISE DIRECTED. THIS IS YOUR BLOOD THINNER. * HIGH RISK PATIENTS MAY BE PRESCRIBED A STRONGER BLOOD THINNER. THIS WILL BE PROVIDED AT DISCHARGE. * CALL IF INCREASED PAIN, REDNESS, DRAINAGE OR FEVER GREATER THAT 101. * WEAR BALBIR HOSE 20 HOURS PER DAY FOR 2 WEEKS. * DERMABOND Prineo- This is a mesh tape dressing that is covered with glue. It should remain in place until the incision is properly healed, usually 10-14 days. This dressing is designed to naturally slough off. You may trim the excess mesh tape as it peels off. Incision may be briefly wet in a shower. Dry immediately by blotting with a clean, dry towel. Do not bath or swim until instructed by your doctor. Do not scratch, rub, or pick at the dressing. Do not apply any topical ointments or lotions until dressing is completely removed and/or instructed by your doctor. There may be a small piece of suture material at one end of your incision. Do not pull or trim this. If it is bothersome or catching on clothing, you may cover it with a band-aid. . FOLLOW UP VISIT: If appointment is not already scheduled: Please call [facility] to make a follow-up appointment for 2 weeks after your surgery at . Pending Studies at Discharge: No Stand-Alone Forms: [facility], Opioid Pain [facility], Work/School Release, Smoking Cessation Medications and DC Order Prescriptions: New polyethylene glycol 3350 [Miralax] 17 gram powder in packet 17 g PO DAILY PRN (Reason: constipation) Qty: 5 RF: 0 aspirin [Ecotrin Low Strength] 81 mg tablet,delayed release (DR/EC) 81 mg PO BID 30 Days Qty: 60 RF: 0 acetaminophen 500 mg capsule 1,000 mg PO Q8H 14 Days Qty: 84 RF: 0 Acetaminophen [Tylenol] 1,000 mg PO Q8 21 Days RF: 0 Aspirin Ectab [Ecotrin Ectab] 81 mg PO BID 30 Days RF: 0 Celebrex 200 mg PO BID 30 Days RF: 0 Docusate Sodium [Colace] 100 mg PO BID 10 Days RF: 0 Oxycodone Immediate Rel [Roxicodone Immediate Rel] 5 - 10 mg PO Q6HWA PRN (Reason: pain) Qty: 30 RF: 0 Continued atorvastatin [Lipitor] 10 mg tablet 10 mg PO QPM RF: 0 paroxetine HCl 20 mg tablet 20 mg PO QPM RF: 0 propranolol [Inderal LA] 80 mg capsule,extended release 24 hr 80 mg PO QPM RF: 0 fluticasone propionate [Flonase Allergy Relief] 50 mcg/actuation [place],Suspension 2 spray INTRANASAL DAILY PRN (Reason: Nasal Congestion) RF: 0 loratadine [Claritin] 10 mg Tablet 10 mg PO DAILY PRN (Reason: ALLERGIES) RF: 0 Vitron-C 65 mg iron- 125 mg Tablet,Delayed Release (Dr/Ec) 1 tab PO QPM RF: 0 tizanidine 4 mg Tablet 4 mg PO DAILY PRN (Reason: Muscle Spasm) RF: 0 riboflavin (vitamin B2) [Vitamin B-2] 100 mg Tablet 200 mg PO QAM RF: 0 ondansetron HCl [Zofran] 4 mg Tablet 4 mg PO Q6H PRN (Reason: Nausea) RF: 0 sumatriptan succinate 50 mg Tablet 50 mg PO UD PRN (Reason: migraines) RF: 0 omeprazole 20 mg Capsule,Delayed Release(Dr/Ec) 20 mg PO QPM RF: 0 Discontinued acetaminophen [Tylenol Extra Strength] 500 mg Tablet 1,000 mg PO Q6H PRN (Reason: Pain) RF: 0 Discharge Orders: Discharge Order (Routine); Ordered 12/15/20 Ordered By: Archie Trent/Other Patient Handouts: DVT Post Op Prevention, Post-Op Tips: Knee Admission Data Admit Date/Time: 12/14/20 14:53 Attending Provider: Honorio Rodríguez Admit Provider: Honorio Rodríguez Primary Care Provider: Shirin Harkins Other Providers: [facility],Home Health Other Interventions: Discharge Summary Assessment (RN) Last Done: 12/15/20 12:17
== END 2020-12-15 14:40 | disposition home health service (06) ==
LOC: 3E 05:43 → ASU 05:43

== ENCOUNTER 2023-07-09 09:18 | Observation (INO) ==
--- NOTE | 2023-06-07 16:01 | PAT Medication Instructions ---
Medication Instructions Date of Service June 07, 2023 Home Medications Medication Instructions Recorded polyethylene glycol 3350 17 gram 17 g PO DAILY PRN constipation #5 12/14/20 oral powder packet (Miralax) ea fluticasone propionate 50 mcg/actuation nasal spray,suspension (Flonase Allergy Relief) 2 spray intranasal DAILY PRN iron,carbonyl 65 mg-vitamin C 125 mg tablet,delayed release (Vitron-C) 1 tab PO QPM loratadine 10 mg tablet (Claritin) 10 mg PO QAM PRN paroxetine HCl 20 mg tablet 20 mg PO QPM propranolol 80 mg capsule,24 hr,extended release (Inderal LA) 80 mg PO QPM omeprazole 20 mg capsule,delayed release 20 mg PO QAM riboflavin (vitamin B2) 100 mg tablet (Vitamin B-2) 200 mg PO QAM tizanidine 4 mg tablet 4 mg PO DAILY PRN polyethylene glycol 3350 17 gram oral powder packet (Miralax) 17 g PO DAILY PRN amlodipine 2.5 mg tablet 2.5 mg PO QAM aspirin 81 mg tablet,delayed release 81 mg PO QAM clindamycin HCl 300 mg capsule 300 mg PO QAM PRN magnesium 500 mg tablet 500 mg PO QAM metformin 500 mg tablet 500 mg PO QPM nitroglycerin 0.4 mg sublingual tablet 0.4 mg sublingual UD PRN rosuvastatin 40 mg tablet 40 mg PO QAM Continue as directed fluticasone propionate 50 mcg/actuation nasal spray,suspension (Flonase Allergy Relief) 2 spray intranasal DAILY PRN(if needed) tizanidine 4 mg tablet 4 mg PO DAILY PRN(if needed) clindamycin HCl 300 mg capsule 300 mg PO QAM PRN(if needed) nitroglycerin 0.4 mg sublingual tablet 0.4 mg sublingual UD PRN(if needed) ASK your prescriber and surgeon aspirin 81 mg tablet,delayed release 81 mg PO QAM DO NOT take the morning of surgery loratadine 10 mg tablet (Claritin) 10 mg PO QAM PRN riboflavin (vitamin B2) 100 mg tablet (Vitamin B-2) 200 mg PO QAM polyethylene glycol 3350 17 gram oral powder packet (Miralax) 17 g PO DAILY PRN magnesium 500 mg tablet 500 mg PO QAM Take morning of surgery With a small sip of water, OTHERWISE NOTHING TO EAT OR DRINK AFTER MIDNIGHT: omeprazole 20 mg capsule,delayed release 20 mg PO QAM amlodipine 2.5 mg tablet 2.5 mg PO QAM rosuvastatin 40 mg tablet 40 mg PO QAM Take evening before surgery iron,carbonyl 65 mg-vitamin C 125 mg tablet,delayed release (Vitron-C) 1 tab PO QPM paroxetine HCl 20 mg tablet 20 mg PO QPM propranolol 80 mg capsule,24 hr,extended release (Inderal LA) 80 mg PO QPM metformin 500 mg tablet 500 mg PO QPM Other Notes If you have any questions please call us at [phone] or [phone] or [phone] or [phone]
--- NOTE | 2023-06-10 11:19 | Anesthesiology Consultation ---
Date of Service June 10, 2023 Assessment & Plan (1) Encounter for pre-operative examination: - check BSG am DOS. - Outpatient joint assessment: Patient is currently scheduled for inpatient pathway. If re-evaluated and patient/surgeon requests outpatient pathway, patient is not recommended candidate for outpatient joint program from anesthesia standpoint. Chart Review Chart Review: Acceptable Risk for Surgery and Patient seen in Pre Admission Testing Teaching & Discussion Pre-Anesthesia Teaching/Discussion Notes: Instructed NPO after midnight before surgery, except medications with 15 cc of water. Medication instructions provided according to the PAT guidelines. History Surgery Operation Date: 07/09/23 11:15 Proposed Procedures p Left Total Knee Arthroplasty - Honorio Rodríguez DO Height/Weight Height: 5 ft 7 in Weight: 118.8 kg Allergies Allergy/AdvReac Type Severity Reaction Status Date / Time acetaminophen Allergy Mild Headache Verified 06/07/23 15:07 [From Kiera] amoxicillin Allergy Mild Vomiting Verified 06/07/23 15:07 dobutamine Allergy Mild Migraine Verified 06/07/23 15:07 oxycodone Allergy Mild Hives Verified 06/07/23 15:07 Penicillins Allergy Mild Vomiting Verified 06/07/23 15:07 propoxyphene Allergy Mild SEVERE Verified 06/07/23 15:07 HEADACHES morphine AdvReac Intermediate per PAT Unverified 06/07/23 16:05 RN, irritability; nausea and vomiting Medications Home Medications Medication Instructions Recorded Confirmed Last Taken fluticasone propionate 50 2 spray intranasal DAILY PRN Nasal 08/21/19 06/07/23 Unknown mcg/actuation nasal Congestion spray,suspension (Flonase Allergy Relief) iron,carbonyl 65 mg-vitamin C 125 1 tab PO QPM 08/21/19 06/07/23 12/13/20 18:30 mg tablet,delayed release (Vitron-C) loratadine 10 mg tablet (Claritin) 10 mg PO QAM PRN ALLERGIES 08/21/19 06/07/23 12/13/20 06:00 paroxetine HCl 20 mg tablet 20 mg PO QPM 08/21/19 06/07/23 12/13/20 18:30 propranolol 80 mg capsule,24 80 mg PO QPM 08/21/19 06/07/23 12/13/20 18:30 hr,extended release (Inderal LA) omeprazole 20 mg capsule,delayed 20 mg PO QAM 11/01/20 06/07/23 12/13/20 18:30 release riboflavin (vitamin B2) 100 mg 200 mg PO QAM 11/01/20 06/07/23 12/13/20 18:30 tablet (Vitamin B-2) tizanidine 4 mg tablet 4 mg PO DAILY PRN Muscle Spasm 11/01/20 06/07/23 Unknown polyethylene glycol 3350 17 gram 17 g PO DAILY PRN constipation #5 12/14/20 06/07/23 Unknown oral powder packet (Miralax) ea amlodipine 2.5 mg tablet 2.5 mg PO QAM 06/07/23 06/07/23 Unknown aspirin 81 mg tablet,delayed 81 mg PO QAM 06/07/23 06/07/23 Unknown release clindamycin HCl 300 mg capsule 300 mg PO QAM PRN dental work 06/07/23 06/07/23 Unknown magnesium 500 mg tablet 500 mg PO QAM 06/07/23 06/07/23 Unknown metformin 500 mg tablet 500 mg PO QPM 06/07/23 06/07/23 Unknown nitroglycerin 0.4 mg sublingual 0.4 mg sublingual UD PRN Chest Pain 06/07/23 06/07/23 Unknown tablet rosuvastatin 40 mg tablet 40 mg PO QAM 06/07/23 06/07/23 Unknown Past Medical History Medical History (Updated 06/10/23 @ 11:35 by Shireen Melendez PA-C) Allergic rhinitis Anxiety Diabetes NIDDM Dyslipidemia GERD (gastroesophageal reflux disease) Well controlled and stable History of COVID-19 (~03/2022) home test > resolved History of kidney stones No current or recent issues History of migraine headaches no current issues Hypertension controlled, stable per pt Palpitations Has had for "many years" -- holter monitor study in past wnl; Dr. Mclain at [facility] (postoperative nausea and vomiting) reports doing well with IV medication, denies needing scop patch Patient denies h/o stroke, seizures, heart attack, heart failure, blood clots/DVTs or blood transfusions. Exercise / Class Metabolic Activity II 4-5 Yardwork/Stairs/Walk up hill (denies chest discomfort or shortness of breath with 1 FOS) Past Family History Family History Father Heart disease Mother Hypertension Sister Hypertension Past Surgical History Surgical History History of arthroscopic knee surgery Rt History of cholecystectomy History of colonoscopy History of endometrial ablation History of hernia surgery History of total right knee replacement (~11/2020) Hx of tonsillectomy Past Anesthesia History No Hx of Anesthesia Complications and No Family Hx of Anesthesia Complications History of PONV No Hx of Motion Sickness and History of PONV (does well with IV medications, denies needing scop patch) Social History Smoking Status: Never smoker Do You Dip or Chew Tobacco: No Hx Alcohol Use: Yes alcohol intake frequency: holidays/special occasions only Hx Substance Use: No substance use type: does not use Review of Systems Occasional snoring, denies witnessed apneas. Patient denies chest pain, shortness of breath, dyspnea on exertion, fever, chills, cough, wheezing, or palpitations. Physical Exam Vital Signs Vitals BP 112/79 P 68 TEMP 98.7 SP02 97% on RA RESP 17 Physical Patient resting comfortably in chair in no acute distress, alert and oriented, responding appropriately throughout visit Full cervical extension range of motion without pain TMD 3.5 finger breadths Mallampati Score 2 Dentition: one crown, denies chipped or loose teeth, implants or bridges Lungs: normal respiratory effort. Good air movement, clear throughout to auscultation, no adventitious breath sounds Cardiac: regular rate and rhythm, no murmurs noted Carotid arteries: negative bruit bilat Lab Results Anesthesia Preop Results Results Anesthesia Widget: WBC 6.25 K/ul (4.8-10.8) 06/10/23 Hgb 11.8 g/dl (12.0-16.0) L 06/10/23 Hct 38.4 % (37.0-47.0) 06/10/23 Plt 267 K/uL (130-400) 06/10/23 Na 140 mmol/L (136-145) 06/10/23 K 4.5 mmol/L (3.5-5.1) 06/10/23 Cl 105 mmol/L (98-107) 06/10/23 CO2 29 mmol/L (21-32) 06/10/23 BUN 13 mg/dl (6-23) 06/10/23 Creat 0.73 mg/dl (0.6-1.2) 06/10/23 Glucose Level 99 mg/dl (70-99(Fasting)) 06/10/23 PT 9.8 Seconds (9.0-12.0) 06/10/23 PTT 26 Seconds (21-31) 06/10/23 INR 0.9 (0.9-1.1) 06/10/23 HA1c 6.5 % (4.5-5.6) H 06/10/23 Blood Type A Negative 06/10/23 Antibody Screen NEGATIVE 06/10/23 Testing Electrocardiogram Date: 12/10/22 NSR, rate 65 bpm Echocardiogram Date: 12/06/20 EF 55-59% Normal LV wall motion Grade I diastolic dysfunction No significant valvular pathology Stress Test Date: 12/18/21 Pharmacologic Abnormal: consistent with ischemia with a small to moderate sized reversible perfusion defect encompassing the apical inferolateral wall and apical lateral wall EF >70% Medical management advised per [facility] Cardiology records, no indication of cardiac cath
--- NOTE | 2023-06-25 08:16 | History & Physical Report ---
Date of Service June 25, 2023 date of surgery: 07/09/23 Procedure: Left Total Knee Arthroplasty Surgeon: Honorio Rodríguez, Assessment & Plan (1) Arthritis of knee, left: Plan: Risk and benefits of the procedure were discussed, she like to proceed with left total knee arthroplasty. Plan will be overnight stay in the hospital with discharge home with home health nursing physical therapy. She does have a listed allergy to oxycodone however she did take this after her right knee replacement and did okay. She will follow-up in the office 2 weeks after surgery or sooner if she is having any issues. She otherwise has no other questions or concerns The risks and benefits have been discussed including, but not limited to, risk of infection, nerve injury, stiffness, loss of motion, failure to improve, etc. Reasonable outcomes and options of treatment were discussed. An explanation of appropriate alternatives to the procedure that may be advantageous were discussed and their risks and benefits, as well as the risks and benefits of not proceeding with treatment. I offered to answer any additional inquiries concerning the treatment involved. All the patient's questions were answered. The patient is agreeable, understanding of the treatment plan and alternatives, and wishes to proceed with the treatment plan. Please note the above document was generated using voice recognition software. It may contain grammatical, syntax or spelling errors. Any formal questions or concerns about the content, text or information contained within the body of this dictation should be directly addressed to the provider for clarification History of Present Illness Chief Complaint: left knee pain Primary Care Provider: Shirin Danielle MD Jessi is a 63-year-old female who presented for preop evaluation prior to upcoming left total knee arthroplasty. She has a longstanding history of left knee pain which is gradually worsened to the point that it is now affecting her daily activities, she has tried oral anti-inflammatories, Tylenol as well and has injections with no improvement. X-rays were reviewed which show advanced generative changes to her left knee. At this point time she has failed conservative measures and wishes to proceed with a left total knee replacement Allergies Allergy/AdvReac Type Severity Reaction Status Date / Time acetaminophen Allergy Mild Headache Verified 06/07/23 15:07 [From Darvocet-N] amoxicillin Allergy Mild Vomiting Verified 06/07/23 15:07 dobutamine Allergy Mild Migraine Verified 06/07/23 15:07 oxycodone Allergy Mild Hives Verified 06/07/23 15:07 Penicillins Allergy Mild Vomiting Verified 06/07/23 15:07 propoxyphene Allergy Mild SEVERE Verified 06/07/23 15:07 HEADACHES morphine AdvReac Intermediate per PAT Unverified 06/07/23 16:05 RN, irritability; nausea and vomiting Home Medications Medication Instructions Recorded Confirmed Type fluticasone propionate 50 2 spray intranasal DAILY PRN Nasal 08/21/19 06/07/23 History mcg/actuation nasal Congestion spray,suspension (Flonase Allergy Relief) iron,carbonyl 65 mg-vitamin C 125 1 tab PO QPM 08/21/19 06/07/23 History mg tablet,delayed release (Vitron-C) loratadine 10 mg tablet (Claritin) 10 mg PO QAM PRN ALLERGIES 08/21/19 06/07/23 History paroxetine HCl 20 mg tablet 20 mg PO QPM 08/21/19 06/07/23 History propranolol 80 mg capsule,24 80 mg PO QPM 08/21/19 06/07/23 History hr,extended release (Inderal LA) omeprazole 20 mg capsule,delayed 20 mg PO QAM 11/01/20 06/07/23 History release riboflavin (vitamin B2) 100 mg 200 mg PO QAM 11/01/20 06/07/23 History tablet (Vitamin B-2) tizanidine 4 mg tablet 4 mg PO DAILY PRN Muscle Spasm 11/01/20 06/07/23 History polyethylene glycol 3350 17 gram 17 g PO DAILY PRN constipation #5 12/14/20 06/07/23 Rx oral powder packet (Miralax) ea amlodipine 2.5 mg tablet 2.5 mg PO QAM 06/07/23 06/07/23 History aspirin 81 mg tablet,delayed 81 mg PO QAM 06/07/23 06/07/23 History release clindamycin HCl 300 mg capsule 300 mg PO QAM PRN dental work 06/07/23 06/07/23 History magnesium 500 mg tablet 500 mg PO QAM 06/07/23 06/07/23 History metformin 500 mg tablet 500 mg PO QPM 06/07/23 06/07/23 History nitroglycerin 0.4 mg sublingual 0.4 mg sublingual UD PRN Chest Pain 06/07/23 06/07/23 History tablet rosuvastatin 40 mg tablet 40 mg PO QAM 06/07/23 06/07/23 History Past Med/Surg History Medical History Allergic rhinitis History of COVID-19 (~03/2022) home test > resolved Hypertension controlled, stable per pt Diabetes NIDDM PONV (postoperative nausea and vomiting) reports doing well with IV medication, denies needing scop patch History of kidney stones No current or recent issues Palpitations Has had for "many years" -- holter monitor study in past wnl; Dr. Mclain at [facility] History of migraine headaches no current issues GERD (gastroesophageal reflux disease) Well controlled and stable Dyslipidemia Anxiety Surgical History History of total right knee replacement (~11/2020) History of cholecystectomy History of colonoscopy History of endometrial ablation Hx of tonsillectomy History of hernia surgery History of arthroscopic knee surgery Rt Family History Father Heart disease Mother Hypertension Sister Hypertension Social History Smoking Status: Never smoker Second Hand Exposure: No; Do You Dip or Chew Tobacco: No; Hx Alcohol Use: Yes Hx Substance Use: No Preferred Language: Swedish Communication Ability: Effective White Lead Filterer Required: No Beliefs That Will Affect Care: None marital status: Current Living Situation: Spouse current occupational status: employed current occupation: [employer] How many Children do You have: 1 Feels Safe at Home: Yes Assistive Devices: Glasses Review of Systems Review of Systems: All systems reviewed & are unremarkable except as noted in HPI & below Constitutional: no fever, no chills and no sweats Respiratory: no cough and no dyspnea Cardiovascular: no chest pain, no dyspnea and no orthopnea Gastrointestinal: no abdominal pain, no nausea and no vomiting Musculoskeletal: as per Subjective / HPI Physical Exam Physical Exam: HT: 5ft 7in WT: 118.8kg Constitutional: WD/WN, vitals as above no acute distress Respiratory: normal respiratory effort, lungs clear to auscultation no respiratory distress, no labored breathing and does not use accessory muscles Cardiovascular: RRR, no murmur, no edema Gastrointestinal (Abdomen): normal bowel sounds, soft, nontender, no hepatosplenomegaly Musculoskeletal: Knee: + knee abnormal to inspection (LEFT KNEE), + effusion (+1 effusion), + limited ROM of knee (ROM 0/3/110), + knee ROM with crepitation, + joint line tenderness (medial joint line) and + Ben's sign positive; no deformity, no skin erythema, no ecchymosis, no valgus laxity, no varus laxity, anterior drawer test negative, Navid's sign negative and pivot shift test negative Results & Data Results & Data Diagnostic Findings Left Knee X-ray: left knee series confirm advanced degenerative changes to the left knee, greatest medial compartments and patellofemoral joint, showing joint space narrowing, osteophyte formation and subchondral sclerosis. no acute bony pathology noted.
[~2023-07-09 09:18] MED LIST changes: -ATOR10TA82 PO; +BUPIVACAINE 0.25% PF 30 ML VIAL ONE; +BUPIVACAINE 0.5 % 5 MG/1 ML PF 10ML VIAL ONE; +DEXAMETHASONE SOD INJ 4 MG/ML VIAL ONE; +EPINEPHrine INJ 1 MG/ML AMP ONE; -FLUT0.15 NAE; -INDSR80 PO; -OMEP40CA41 PO; -PXL20 PO; -RANI150T3 PO; -SUMA50TA15 PO; -TRAM-10 PO
[2023-07-09] MEDS ORDERED: TRANEXAMIC ACID / 0.7% NACL 1,000 MG/100 ML BAG IV ONE ×2 (09:25)
[2023-07-09] MEDS: LR 60ML/HR IV SCH (10:01)
[2023-07-09] MEDS: LR 500ML BOLUS, THEN 15ML/HR IV SCH (10:01)
[2023-07-09] MEDS: VANCOMYCIN HCL 1,750 MG in SODIUM CHLORIDE 0.9% 500 ML IV SCH (10:11)
[2023-07-09] MEDS: TRANEXAMIC ACID / 0.7% NACL 1000MG/100ML BAG IV ONE (10:22)
--- NOTE | 2023-07-09 10:46 | History & Physical Bridge Note ---
Date of Service July 09, 2023 History & Physical Bridge Note I have examined the patient, reviewed the History & Physical and in the interval since the performance of the History & Physical I have noted the following changes of clinical significance: no changes noted
[2023-07-09] MEDS ORDERED: MIDAZOLAM HCL 1 MG/ML 2ML VIAL ONE (10:58)
[2023-07-09] MEDS ORDERED: fentaNYL citrate PF 100 MCG/2 ML VIAL ONE (10:59)
[2023-07-09] MEDS ORDERED: ePHEDrine sulfate 50 MG/ML AMP IV PRN (12:07)
[2023-07-09] MEDS ORDERED: fentaNYL citrate PF 100 MCG/2 ML VIAL IV PRN (12:07)
[2023-07-09] MEDS ORDERED: ATROPINE SULFATE 0.1 MG/ML 10ML SYR IV PRN (12:07)
[2023-07-09] MEDS ORDERED: ONDANSETRON INJ 2 MG/ML 2 ML VIAL IV PRN ×2 (12:07→14:58)
[2023-07-09] MEDS: TRANEXAMIC ACID / 0.7% NACL 1,000 MG/100 ML BAG IV ONE (12:12)
[2023-07-09] MEDS ORDERED: PROPOFOL IV EMULSION 10 MG/ML 20 ML VIAL IV ONE ×2 (12:33→13:35)
[2023-07-09] MEDS ORDERED: ONDANSETRON INJ 2 MG/ML 2 ML VIAL ONE (12:33)
[2023-07-09] MEDS: ROPIV 0.5% 246mg, Ketorolac 30mg, EPINEPHrine 0.5mg in NSS INFIL SCH (13:16)
--- NOTE | 2023-07-09 13:39 | Operative Report ---
Post Operative Report Pre & Post Diagnosis Operation Date: 07/09/23 11:00 Pre-Op Diagnosis: Oteoarthritis Knee Left Post-Op Diagnosis: Oteoarthritis Knee Left I identified the patient and participated in the time-out.: Yes Procedure Operation Date: 07/09/23 11:00 Actual Procedures p Left Total Knee Arthroplasty(Left) - Utilizing Joel persona total knee arthroplasty size 8 narrow femur tibia E poly 11 medial constrained patella 31 ovalThomas Florentin Rodríguez DO Surgeon Honorio Rodríguez DO Drafter Electronic Archie VERDUZCO Estimated Blood Loss 5 Findings Consistent with Post-Op Diagnosis Patient presents with severe end-stage tricompartmental degenerative joint disease of the left knee nonresponse to conservative management patient failed attempted corticosteroid injection viscosupplementation patient is eburnated [id number] subchondral cystic changes marginal osteophytes moderate to large effusion Specimens Bone and cartilage Drains Medium bore Hemovac Anesthesia Type MAC Spinal Regional Complications none Disposition Accompanied Patient To Recovery: No Disposition: Recovery Room Indications Patient presents with ongoing plaints of pain about the left knee nonresponse to conservative management patient is failed attempts corticosteroid injection viscosupplementation relative rest activity modification bracing presents for total knee arthroplasty Description of Procedure After proper prepping and draping of the left lower extremity anterior midline incision was made over the region of the extensor extensor mechanism after meticulous hemostasis was obtained and maintained in subcutaneous tissues a medial parapatellar incision was made The patella was subluxed lateralward the medial lateral gutter were cleaned from any hypertrophic synovitis and scar tissue of the distal femoral block was placed and the distal femoral osteotomy cut was made subsequently the chamfers anterior and posterior osteotomy cuts were made utilizing the 4-in-1 block the tibia was subsequently subluxed anteriorward medial and ateral meniscal remnants were excised in their entirety remnants of the anterior and posterior cruciate ligaments were excised in their entirety excellent exposure of the proximal tibia was obtained the tibial osteotomy guide was placed on the proximal tibial osteotomy cut was made once again the knee was irrigated with copious amounts of sterile saline solution the patella was subsequently everted lateralward thickened scar tissue around the patella was removed the patella was subsequently cut utilizing a freehand technique and was drilled prepared for final preparation and placement of patella socially flexion-extension gaps were checked and the equal and symmetric trials were placed to the appropriate femoral and tibial trials with poly-spacer being placed for equal flexion and extension gaps and full range of motion including extension to 0 and flexion to 140 the trial components after having been taken to recovery range of motion was subsequently removed meticulous hemostasis was obtained and maintained subsequently a knee block injection of joint cocktail including ropivacaine 0.5% 150 mg. Bupivacaine 0.5% epinephrine 1-200,030 mL's toradol 30 mg dexamethasone 4 mg ketamine 10 mg clonidine 100 micrograms normal saline solution 30 mg was infiltrated into the soft tissues of the posterior knee medial lateral gutters and periosteal synovium special attention was paid to protect neurovascular structures at all times subsequently trial components having been removed the knee was irrigated with sterile saline solution. debris was removed the proximal tibia was subsequently prepared and was made ready for the placement of the tibial component tibial component was also cemented and tamped into position the femoral component was subsequently placed and cemented in the position the patellar component was subsequently cemented in position because hemostasis once again obtained and maintained wound having been thoroughly irrigated with debridement and debridement lavage was performed as well as a medial parapatellar incision closed with #1 Vicryl in interrupted fashion subcutaneous was closed with #2 Vicryl skin was closed with skin clips. PA-C was necessary for prepping and drapping as well as wound closure of deep fascia Sub cutaneous tissue and skin and was necessary for the case. A sterile compressive dressing was placed patient was taken to recovery in stable condition of report dictated by Marcos I attest to the content of the Intraoperative Record and any orders documented therein. Any exceptions are noted below.Due to the complex nature of the procedure, the entire surgery was performed with the operational assistance of LUBA [place]. The lab assistant, under direct supervision, was involved in the actual performance of all aspects of the surgical procedure including hemostasis, tissue retraction and incision, instrument management, patient positioning, and wound closure. I attest to the content of the Intraoperative Record and any orders documented therein. Any exceptions are noted below.
--- OUTSIDE RECORDS SUMMARY | 2023-07-09 14:08 | External Medical Summary | Summary of Care ---
Author Name Unknown Organization [facility] Address [address] [place] [address] Phone [phone] Care Team Providers Care [employer] Name Role Phone Shirin Danielle MD Primary Care Provider [phone] Reason for Visit * Reason Onset Date Comments Test Results 07/05/2023 Encounter Details Date Type Department Care Team (Late st Contact Info) Description 07/05/2023 Telephone General Internal Medicine [facility] [address] [place] [address] René Douglas MD [address] [place] [address] Test Results Allergies Active Allergy Reactions Criticality Noted Date Comments Propoxyphene N-Acetaminophen 010 Headaches-adverse reaction Dobutamine 01/09/2022 Severe migraine headache Morphine Sulfate 09/29/2009 irritability Oxycodone Hives 01/30/2021 documented as of this encounter (statuses as of 07/05/2023) Medications Medication Sig Dispensed Refills Start Date End Date Status FLONASE 50 MCG/ACT NA SUSPIndications:C hronic rhinitis Two sprays each nostril once daily 3 Bottle 3 06/16/2012 Active Additional Information Patient taking differently: 1 SprayNasalDAILY PRN, Reported on 04/20/2022 Acetaminophen Extra Strength 500 MG Oral TabletIndications :Status post total right knee replacement Take 2 Tablets by mouth every 8 hours as needed. 30 Tab 0 01/30/2021 Active Magnesium 400 MG Oral TabletIndications :Chronic migraine without aura without status migrainosus, not intractable 1/d--st 09/05/2021 1 Tablet 0 09/05/2021 Active Nitroglycerin 0.4 MG Sublingual Tablet Sublingual (Nitrostat)Indica tions:Chest pain, unspecified type,PACKER (dyspnea on exertion),Abnorma l nuclear stress test,HTN, goal below 130/80,Prediabete s,Dyslipidemia, goal LDL below 70 Place under the tongue 1 Tablet every 5 minutes as needed for Pain, Chest. up to 3 doses in 15 minutes 25 Tablet 11 01/09/2022 Active Additional Information Patient not taking.Reported on 06/12/2023 Clobetasol Propionate 0.05 % External Cream (Temovate)Indicat ions:Lichen sclerosus of vulva Apply topically to affected area 2 times a day. To affected area Till better then as needed 45 g 0 02/12/2022 Active Cetirizine HCl 10 MG Oral Tablet Take 1 Tablet by mouth in the morning. 0 Active Aspirin EC 81 MG Oral Tablet Delayed ReleaseIndication s:Dyslipidemia, goal LDL below 70,Chest pain, unspecified type,PACKER (dyspnea on exertion),Abnorma l nuclear stress test,HTN, goal below 130/80,Prediabete s Take 1 Tablet by mouth in the morning. 90 Tablet 3 04/20/2022 Active Riboflavin 400 MG Oral CapsuleIndication s:Migraine without aura and without status migrainosus, not intractable Take 1 Capsule by mouth in the morning. Since 01/2020-. 1 Capsule 0 08/21/2022 Active Iron-Vitamin C 65-125 MG Oral Tablet (Vitron C)Indications:Iro n deficiency anemia due to chronic blood loss 1 tab 3d/wk as directed-st 08/21/2022 1 Tablet 0 08/21/2022 Active Losartan Potassium 25 MG Oral Tablet (Cozaar) TAKE 1 TABLET IN THE MORNING 90 Tablet 3 01/09/2023 Active amLODIPine Besylate 2.5 MG Oral Tablet (Norvasc)Indicati ons:Chest pain, unspecified type,PACKER (dyspnea on exertion),HTN, goal below 130/80,Precordial chest pain,Cardiovascul ar stress test abnormal TAKE 1 TABLET IN THE MORNING 90 Tablet 3 01/18/2023 Active Clindamycin HCl 300 MG Oral Capsule TAKE 2 CAPSULE BY ORAL ROUTE X1 DOSE, 1 HOUR BEFORE PROCEDURE 0 12/10/2022 Active metFORMIN HCl ER 500 MG Oral Tablet Extended Release 24 Hour (Glucophage XR)Indications:Ty pe 2 diabetes mellitus with hemoglobin A1c goal of less than 7.0% (HCC),Weight gain,Severe obesity with body mass index (BMI) of 35.0 to 39.9 with serious comorbidity (HCC) Take 4 Tablets by mouth daily with dinner. St 09/05/2021, inc 2 /d 02/20, inc 3 tabs 02/25/2023 and after 2 weeks inc to 4 tab with dinner 360 Tablet 3 02/25/2023 Active Rosuvastatin Calcium 40 MG Oral Tablet (Crestor)Indicati ons:Dyslipidemia, goal LDL below 70 Take 1 Tablet by mouth in the morning. 90 Tablet 3 04/03/2023 Active Propranolol HCl ER 80 MG Oral Capsule Extended Release 24 Hour (Inderal LA)Indications:Pa karin disorder TAKE 1 CAPSULE DAILY 90 Capsule 3 06/04/2023 Active PARoxetine HCl 20 MG Oral Tablet (pAXil)Indication s:Adjustment disorder with anxious mood TAKE 1 TABLET DAILY 90 Tablet 3 06/04/2023 Active Omeprazole 20 MG Oral Capsule Delayed Release (PriLOSEC)Indicat ions:Gastroesopha geal reflux disease without esophagitis TAKE 1 CAPSULE DAILY 1 HOUR BEFORE FIRST MEAL OF THE DAY 90 Capsule 3 07/02/2023 Active Amoxicillin 500 MG Oral Capsule (Amoxil) Take 1 Capsule by mouth in the morning and 1 Capsule at noon and 1 Capsule before bedtime. Do all this for 5 days. 15 Capsule 0 07/05/2023 4 Active documented as of this encounter (statuses as of 07/05/2023) Active Problems Problem Noted Date Diagnosed Date Abnormal stress test 02/05/2022 Lichen sclerosus of vulva 02/05/2022 History of 2019 novel coronavirus disease (COVID -19) 02/05/2022 Hx laparoscopic cholecystectomy 11/29/2020 Iron deficiency anemia 11/29/2020 Primary osteoarthritis of both knees 11/29/2020 DDD (degenerative disc disease), lumbar 08/04/19 21 Generalized osteoarthritis 08/03/2020 HLA B27 (HLA B27 positive) 08/03/2020 Dyslipidemia, goal LDL below 70 12/03/2019 Gastroesophageal reflux disease without esophagi tis 12/03/2019 DENNISE (generalized anxiety disorder) 12/03/2019 History of colonoscopy 12/03/2019 Severe obesity with body mas s index (BMI) of 35.0 to 39.9 with serious comorbidity 12/03/2019 Type 2 diabetes mellitus wit h hemoglobin A1c goal of less than 7.0% 07/07/2018 Overview: Per Prediabetes protocol #1 Nonrheumatic tricuspid valve regurgitation 09/06 COMMON MIGRAINE WITHOUT MENTION OF INTRACTABLE M IGRAINE 06/26/1999 documented as of this encounter (statuses as of 07/05/2023) Resolved Problems Problem Noted Date Diagnosed Date Resolved Date Body mass index (BMI) of 40. 0 to 44.9 in adult 12/31/2016 12/03/2019 Overview: Per Obesity protocol #1 Chronic cholecystitis 09/29/20092020 Elevated blood pressure, situational 02/13/2007 12/03/2019 ADVANCE DIRECTIVE INFORMATION 10/04/2005 12/03/2019 Overview: Information given to patient Anemia 12/25/2000 12/03/2019 Dyslipidemia, goal to be determined 12/03/2019 documented as of this encounter (statuses as of 07/05/2023) Immunizations Name Administration Dates Next Due COVID-19 mRNA, LNP-s, No Pre serve, 2-Dose Series (SpotMe) 02/11/2021,08/11/2020,07/21/2020 Pneumococcal Conjugate Vacc, 13 Valent (Prevnar) 08/21/2022 Seasonal Influenza, PF, 6 M & above, IM , (FluLaval or Fluzone) 02/25/2023,02/05/2022,01/30/2021,2019 Seasonal Influenza, Split, I IV3, With Preserve, Inj 04/09/2014 TD - Tetanus/Diptheria (ADULT) 04/01/1991 TD, Preservative Free 07/15/2018 TDAP (age 11 and older)(Adacel) 06/30/2008 Zoster Vaccine Recombinant (Shingrix) 03/08/2020 ,12/03/2019 documented as of this encounter Social History Tobacco Use Types Packs/Day Years Used Date Smoking Tobacco: Never Smokeless Tobacco: Never Alcohol Use Standard Drinks/Week Comments Yes 0 (1 standard drink = 0.6 oz pur e alcohol) Very rarely PHQ-2 Answer Date Recorded PHQ Adult Total Score 0 08/21/2022 Hunger Vital Sign Answer Date Recorded Within the past 12 months, y ou worried that your food would run out before you got the money to buy more. Never true 08/22/19 Within the past 12 months, t he food you bought just didn't last and you didn't have money to get more. Never true 08/21/2022 Sex and Gender Information Value Date Recorded Sex Assigned at Female 06/18/2019 10:32 AM EDT Gender Identity Female 06/18/2019 10:32 AM EDT Sexual Orientation Lesbian 06/18/2019 10 :32 AM EDT Job Start Date Occupation Industry Not on file Not on file Not on file documented as of this encounter Miscellaneous Notes * Addendum Note - René Douglas MD - 07/05/2023 4:28 PM EDTAddended by: RENÉ DOUGLAS on: 07/05/2023 04:28 PM Modules accepted: Orders * Telephone Encounter - Nhi Guajardo LPN - 07/05/2023 4:26 PM EDT Patient aware and verbalized understanding, will comply. Pharmacy confirmed. Patient will pick pack worker the script and start it today. * Telephone Encounter - Jazmin Olmedo MED ASSIST - 07/05/2023 1:23 PM EDT Called patient, left message to return call. MyG sent * Telephone Encounter - Jazmin Olmedo MED ASSIST - 07/05/2023 1:21 PM EDT ----- Message from René Douglas MD sent at 07/05/2023 12:30 PM EDT ----- Possible uti, would start amoxicillin 500 mg tid for 5 days, she should contact surgeon to see if they need to delay surgery documented in this encounter Plan of Treatment Upcoming Encounters Date Type Department Care Team (Late st Contact Info) Description 08/27/2023 1:40 PM EDT Office Visit General Internal Medicine [facility] [address] [facility] [place] [address] Shirin Danielle MD [address] [facility] [place] [address] 11/05/2023 7:15 AM EDT Imaging Radiology [address] [place] [address] 03/17/2024 3:30 PM EST Office Visit Neurology [facility] [address] [facility] [place] [address] Odalis Holder PA-C [address] [place] [phone] Scheduled Procedures Name Priority Associated Diagnoses Date/Ti me COLONOSCOPY FLEXIBLE PROXIMA L DIAGNOSTIC Recall Special screening for malignant neoplasms, colon Health Maintenance Due Date Last Done Comments Cologuard 2007 Fecal Occult Blood Test 2007 Sigmoidoscopy 2007 Pneumococcal Vaccine: Pediatrics (0 to 5 Years) and At-Risk Patients (6 to 64 Years) (2 of 2 - PPSV23 or PCV20) 10/16/2022 08/21/2022 COVID-19 Vaccine (2022-24 season) 2022 02/11/2021, 08/11/2020, 07/21/2020 Depression Screening 08/22/2023 08/21/2022, 12/11/2016 (Declined) Mammogram 11/01/2023 10/31/2022, 07/, 10/17/2020, Additional history exists Diabetic Eye Exam 11/29/2023 11/28/2022, , 02/11/2012 HbA1c 12/11/2023 06/10/2023, 01/31, 08/07/2022, Additional history exists Albumin/Creatinine Ratio 02/19/2024 023, 01/09/2022, 08/20/2019 Diabetic Foot Exam 02/26/2024 02/25/2023 Colonoscopy 05/17/2024 05/17/2014, 05/01/2004 Colorectal Cancer Screening 05/17/2024 GFR 06/09/2024 06/10/2023, 01/31, 08/07/2022, Additional history exists Pap Smear 03/19/2026 03/19/2023, 09/2021, 07/15/2018, Additional history exists Lipid Panel 02/19/2028 02/18/2023, 01/31, 08/07/2022, Additional history exists Cervical Cancer Screening 03/19/2028 HPV/Co-Test 03/19/2028 03/19/2023, 02/05/2022 DTaP,Tdap,and Td Vaccines (3 - Td or Tdap) 07/15/2028 07/15/2018, 06/30/2008, 04/01/1991 Zoster Vaccines Completed 03/08/2020, 12/03/2019 Influenza Vaccine (FLU shot) Completed , 02/05/2022, 01/30/2021, Additional history exists GARDASIL-HPV IMMUNIZATION SERIES Aged Out No longer eligible based on patient's age to complete this topic Hepatitis B Aged Out No longer eligi ble based on patient's age to complete this topic MENINGOCOCCAL (MENACTRA/MENVEO) Aged Out No longer eligible based on patient's age to complete this topic documented as of this encounter Medical Devices Not on filedocumented as of this encounter Care Teams [employer] Relationship Specialty Start Date End Date Shirin Danielle MD [address] [place] [address] PCP - General Internal Medicine 03/26/19 documented as of this encounter
--- OUTSIDE RECORDS SUMMARY | 2023-07-09 14:09 | External Medical Summary | Summary of Care ---
Author Name Unknown Organization [facility] Address [address] [place] [address] Phone [phone] Care Team Providers Care Grinder Set Up Operator Jig Name Role Phone Shirin Danielle MD Primary Care Provider [phone] Reason for Referral * Precert (Within 24 hrs (call dept; emergent)) - Authorized Specialty Diagnoses / Procedures Referred By Contac t Referred To Contact Cardiac Studies Diagnoses Preoperative general physical examination Primary osteoarthritis of both knees Nonrheumatic tricuspid valve regurgitation Abnormal stress test Procedures ECHO, COMPLETE (2D), TRANS-THORACIC Shirin Danielle MD [address] [place] [id number] Referral ID Status Reason Start Date Expiration Date V isits Requested Visits Authorized [id number] Authorized Precert 06/25/2023 08/12/2023 999 [id number] Reason for Visit * Reason Comments Physical-Exam Complete physical ex am for pre-op clearance, left total knee replacement. Pt denied any new concerns. Encounter Details Date Type Department Care Team (Latest Contact Info) Description 06/11/2023 9:00 AM EDT Office Visit General Internal Medicine State Katty Rodas [address] [place] [address] [id number] Shirin Danielle MD [address] [place] [id number] Preoperative general physical examination*; Primary osteoarthritis of both knees; Nonrheumatic tricuspid valve regurgitation; Abnormal stress test; Type 2 diabetes mellitus with hemoglobin A1c goal of less than 7.0% ([facility]); Dyslipidemia, goal LDL below 70; Severe obesity with body mass index (BMI) of 35.0 to 39.9 with serious comorbidity ([facility]); Gastroesophageal reflux disease without esophagitis; Migraine without aura and without status migrainosus, not intractable; Iron deficiency anemia secondary to inadequate dietary iron intake Allergies Active Allergy Reactions Criticality Noted Date Comments Propoxyphene N-Acetaminophen 010 Headaches-adverse reaction Dobutamine 01/09/2022 Severe migraine headache Morphine Sulfate 09/29/2009 irritability Oxycodone Hives 01/30/2021 documented as of this encounter (statuses as of 06/18/2023) Medications Medication Sig Dispensed Refills Start Date [...] directed-st 08/21/2022 1 Tablet 0 08/21/2022 Active Omeprazole 20 MG Oral Capsule Delayed Release (PriLOSEC)Indicat ions:Gastroesopha geal reflux disease without esophagitis TAKE 1 CAPSULE DAILY 1 HOUR BEFORE FIRST MEAL OF THE DAY 90 Capsule 1 12/31/2022 Active Losartan Potassium 25 MG Oral Tablet [...] TABLET DAILY 90 Tablet 3 06/04/2023 Active documented as of this encounter (statuses as of 06/18/2023) Active Problems Problem Noted Date Diagnosed Date Abnormal stress test 02/05/2022 Lichen sclerosus of vulva 02/05/2022 History of 2019 novel coronavirus disease (COVID -19) 02/05/2022 Hx laparoscopic cholecystectomy 11/29/2020 Iron deficiency anemia 11/29/2020 Primary osteoarthritis of both knees 11/29/2020 DDD (degenerative disc disease), lumbar 08/04/19 Generalized osteoarthritis 08/03/2020 HLA B27 (HLA B27 [...] as of this encounter (statuses as of 06/18/2023) Resolved Problems Problem Noted Date Diagnosed Date Resolved Date Body mass index (BMI) of 40. 0 to 44.9 in adult 12/31/2016 12/03/2019 Overview: Per Obesity protocol #1 Chronic cholecystitis 09/29/20092020 Elevated blood pressure, situational 02/13/2007 12/03/2019 ADVANCE DIRECTIVE INFORMATION 10/04/2005 12/03/2019 Overview: Information given to patient Anemia 12/25/2000 12/03/2019 Dyslipidemia, goal to be determined 12/03/2019 documented as of this encounter (statuses as of 06/18/2023) Immunizations Name Administration Dates Next Due COVID-19 mRNA, LNP-s, No Pre serve, 2-Dose Series (Pfizer) 02/11/2021,08/11/2020,07/21/2020 Pneumococcal Conjugate Vacc, 13 Valent (Prevnar) 08/21/2022 Seasonal Influenza, PF, 6 M & above, IM , (FluLaval or Fluzone) 02/25/2023,02/05/2022,01/30/2021,2019 Seasonal Influenza, Split, I IV3, With Preserve, Inj 04/09/2014 TD, Preservative Free 07/15/2018 TDAP (age 11 and older)(Adacel) 06/30/2008 Zoster Vaccine Recombinant (Shingrix) 03/08/2020 ,12/03/2019 documented as of this encounter Social History Tobacco Use Types Packs/Day Years Used Date Smoking Tobacco: Never Smokeless Tobacco: Never Tobacco Cessation:Counseling Given: Not Answered Alcohol Use Standard Drinks/Week Comments Yes 0 (1 standard drink = 0.6 oz pur e alcohol) Very rarely PHQ-2 Answer Date Recorded PHQ Adult Total Score 0 08/21/2022 Hunger Vital Sign Answer Date Recorded Within the past 12 months, y ou worried that your food would run out before you got the money to buy more. Never true 08/22/19 23 Within the past 12 months, t he [...] on file documented as of this encounter Last Filed Vital Signs Vital Sign Reading Time Taken Comments Blood Pressure 116/70 06/11/2023 9:04 AM EDT Pulse 64 06/11/2023 9:47 AM EDT Temperature 36.5 C (97.7 F) 06/11/2023 9:04 AM ED T Respiratory Rate - - Oxygen Saturation 98% 06/11/2023 9:04 AM EDT Inhaled Oxygen Concentration - - Weight 119.4 kg (263 lb 3.2 oz) 06/11/2023 9:04 AM EDT Height 170.2 cm (5' 7") 06/11/2023 9:04 AM EDT Body Mass Index 41.22 06/11/2023 9:04 AM EDT documented in this encounter Progress Notes * Shirin Danielle MD - 06/11/2023 9:28 AM EDT SUBJECTIVE: Jessi Steel is a 63 year old female. Chief Complaint Patient presents with Physical-Exam Complete physical exam for pre-op clearance, left total knee replacement. Pt denied any new concerns. HPI: Patient presents Is being seen for preoperative evaluation at the request of Procedure and Date of surgery:left TKR 07/09/23 Wt Readings from Last 6 Encounters: 06/11/23 119.4 kg (263 lb 3.2 oz) 03/19/23 119.7 kg (264 lb) 03/19/23 121.6 kg (268 lb 1.6 oz) 02/25/23 121.4 kg (267 lb 9.6 oz) 12/10/22 117.9 kg (260 lb) 09/26/22 114.9 kg (253 lb 6.4 oz) BP Readings from Last 6 Encounters: 06/11/23 116/70 03/19/23 120/74 03/19/23 112/72 02/25/23 108/78 12/10/22 122/80 09/26/22 114/70 I have reviewed the patient's medications and allergies, past medical, surgical, social and family history, updating these as appropriate. See Histories section of the electronic medical record for adisplay of this information. Jessi has GERD on omeprazole 40mg -dec to 20 mg 08/05/20 and doing well, h/o laparoscopic cholecystectomy; normal colonoscopy 2014., history of iron deficiency anemia--improved 09/20 with taking iron supplements and discontinued. Chronic anxiety on Paxil 20mg, migraine disorder on Imitrex p.r.n., Inderal 80 mg daily, seasonal allergic rhinitis on Flonase and Zyrtec. Dyslipidemia on Lipitor 10mg --inc 40mg 10/20;, chg to crestor 40mg 05/24 ,Pre diabetes, mild to moderate tricuspid regurgitatio echo 08/2016, no sx of OSAS. Bilateral nephrolithiasis. Generalized osteoarthritis,History of chronic knee pain,-currently off nsaids ,obesity. 02/19> SP Rt TKR 12/14/20 [facility], [facility], has pain in the left knee, is wilbur left TKR 07/09/23 Tricuspid regurgitation Stress echo-11/14. Echocardiogram 09/15 EF 55-60%, mild MR, [id number] TR. ECHO-12/20--ef 55-59%, gr 1 DD 09/20--h/o CP>normal sinus rhythm 76 bpm ., nonspecific T-wave flattening in V2 09/20-Dobutamine stress echo-indeterminate as she developed severe migraine;Resting echo-EF 55-59%, grade 1 diastolic dysfunction/slight decrease in relaxation of heart.ct low salt diet. 10/26/21-cardiology eval>[facility] htn. 12/18/21- Lexiscan abnormal consistent with a small to moderate size reversible perfusion defect in the apical, inferior lateral wall and apical lateral wall consistent with possible ischemia. Defect encompass 28% of the left circumflex coronary territory. F/u 01/09/22---rec cath 01/25/22--denied by ins--try med -f/u 04/20/22--added amlodipine 2.5 mg, atorvastatin dose increased to 80 mg---chg to rosuvastatin 40mg 04/20/22--sig imp in lipids, ldl 66> 06/22--saw Cardiology in November- EKG-12/10/2022-NSR at 65 B p.m., no ischemic changes Has card appt tomorrow Rev meds--metformin-Had nausea with 4t, still on 3 now--try 2 bid Labs obtained--nml CBC ex Hb 11.8, nml coags,cmp, A1c 6.5% Had eye exam last wk Constitutional: no weight loss, no weakness and no fatigue Eyes: no worsening of vision ENT: no hearing loss, no congestion, no runny nose, no sore throat, no tinnitus. No dental problems Resp: no cough, no sputum, no wheezing, no SOB and no hemoptysis Cardiac: no chest pain, no orthopnea, no dyspnea on exertion, no PND, no edema, no claudication and no palpitations GI: no pain, no heartburn, no diarrhea, no constipation, no blood/melena, no nausea, no vomiting Musculoskeletal: no other significant pain. : no dysuria, no incontinence Neuro: no weakness, no falling, no numbness or tingling and no vertigo Heme: no fever, no chills, no sweats, no bleeding/bruising, no weight loss and no swollen nodes Endo: no unplanned weight change, no excessive thirst and no excessive urination Skin: no rash, no itching Hemoglobin AIC Results: Lab Results Component Value Date/Time HEMOGLOBIN A1C - [facility] 6.3 (H) 02/18/2023 07:08 AM HEMOGLOBIN A1C - [facility] 6.1 (H) 08/07/2022 07:18 AM HEMOGLOBIN A1C - [facility] 6.3 (H) 01/09/2022 09:44 AM HEMOGLOBIN A1C - [facility] 6.3 (H) 11/28/2019 10:25 AM HEMOGLOBIN A1C - [facility] 6.2 (H) 08/20/2019 07:06 AM HEMOGLOBIN A1C - [facility] 6.3 (H) 07/15/2018 04:51 PM 02/21-nml TSH,n/I to hep B--discussed vaccines, defers to start today Immunization History Administered Date(s) Administered COVID-19 mRNA, LNP-s, No Preserve, 2-Dose Series (Pfizer) 07/21/2020, 08/11/2020, 02/11/2021 Pneumococcal Conjugate Vacc, 13 Valent (Prevnar) 08/21/2022 Seasonal Influenza, PF, 6 M & above, IM , (FluLaval or Fluzone) 12/03/2019, 01/30/2021, 02/05/2022, 02/25/2023 Seasonal Influenza, Split, IIV3, With Preserve, Inj 04/09/2014 TD - Tetanus/Diptheria (ADULT) 04/01/1991 TD, Preservative Free 07/15/2018 TDAP (age 11 and older)(Adacel) 06/30/2008 Zoster Vaccine Recombinant (Shingrix) 12/03/2019, 03/08/2020 Patient Active Problem List Diagnosis Code COMMON MIGRAINE WITHOUT MENTION OF INTRACTABLE MIGRAINE G43.009 Nonrheumatic tricuspid valve regurgitation I36.1 Type 2 diabetes mellitus with hemoglobin A1c goal of less than 7.0% ([facility]) E11.9 Dyslipidemia, goal LDL below 70 E78.5 Gastroesophageal reflux disease without esophagitis K21.9 DENNISE (generalized anxiety disorder) F41.1 History of colonoscopy Z98.890 Severe obesity with body mass index (BMI) of 35.0 to 39.9 with serious comorbidity ([facility]) E66.01 DDD (degenerative disc disease), lumbar M51.36 Generalized osteoarthritis M15.9 HLA B27 (HLA B27 positive) Z15.89 Hx laparoscopic cholecystectomy Z90.49 Iron deficiency anemia D50.9 Primary osteoarthritis of both knees M17.0 Abnormal stress test R94.39 Lichen sclerosus of vulva N90.4 History of 2019 novel coronavirus disease (COVID-19) Z86.16 Current Outpatient Medications Medication Sig Dispense Refill FLONASE 50 MCG/ACT NA SUSP Two sprays each nostril once daily (Patient taking differently: Administer 1 [place] into nostril daily as needed.) 3 Bottle 3 Acetaminophen Extra Strength 500 MG Oral Tablet Take 2 Tablets by mouth every 8 hours as needed. 30Tab Magnesium 400 MG Oral Tablet 1/d--st 09/05/2021 1 Tablet 0 Nitroglycerin 0.4 MG Sublingual Tablet Sublingual (Nitrostat) Place under the tongue 1 Tablet every5 minutes as needed for Pain, Chest. up to 3 doses in 15 minutes 25 Tablet 11 Clobetasol Propionate 0.05 % External Cream (Temovate) Apply topically to affected area 2 times a day. To affected area Till better then as needed 45 g 0 Aspirin EC 81 MG Oral Tablet Delayed Release Take 1 Tablet by mouth in the morning. 90 Tablet 3 Riboflavin 400 MG Oral Capsule Take 1 Capsule by mouth in the morning. Since 01/2020-. 1 Capsule 0 Iron-Vitamin C 65-125 MG Oral Tablet (Vitron C) 1 tab 3d/wk as directed-08/21/2022 1 Tablet 0 Omeprazole 20 MG Oral Capsule Delayed Release (PriLOSEC) TAKE 1 CAPSULE DAILY 1 HOUR BEFORE FIRST MEAL OF THE DAY 90 Capsule 1 Losartan Potassium 25 MG Oral Tablet (Cozaar) TAKE 1 TABLET IN THE MORNING 90 Tablet 3 amLODIPine Besylate 2.5 MG Oral Tablet (Norvasc) TAKE 1 TABLET IN THE MORNING 90 Tablet 3 metFORMIN HCl ER 500 MG Oral Tablet Extended Release 24 Hour (Glucophage XR) Take 4 Tablets by mouth daily with dinner. St 09/05/2021, inc 2 /d 02/20, inc 3 tabs 02/25/2023 and after 2 weeks inc to 4 tab with dinner 360 Tablet 3 Rosuvastatin Calcium 40 MG Oral Tablet (Crestor) Take 1 Tablet by mouth in the morning. 90 Tablet 3 Propranolol HCl ER 80 MG Oral Capsule Extended Release 24 Hour (Inderal [place]) TAKE 1 CAPSULE DAILY 90Capsule 3 PARoxetine HCl 20 MG Oral Tablet (pAXil) TAKE 1 TABLET DAILY 90 Tablet 3 Cetirizine HCl 10 MG Oral Tablet Take 1 Tablet by mouth in the morning. Clindamycin HCl 300 MG Oral Capsule TAKE 2 CAPSULE BY ORAL ROUTE X1 DOSE, 1 HOUR BEFORE PROCEDURE No current facility-administered medications for this visit. Past Medical History: Diagnosis Date ANEMIA NOS 12/25/2000 Chronic cholecystitis 09/29/2009 COMMON MIGRAINE WITHOUT MENTION OF INTRACTABLE MIGRAINE 06/26/1999 Dyslipidemia, goal to be determined Elevated blood pressure, situational 02/13/2007 Lichen sclerosus 2022 vulva. Diagnosed through [facility] Paroxysmal tachycardia (HCC) Past Surgical History: Procedure Laterality Date ARTHROPLASTY KNEE TOTAL Right 12/14/2020 Dr[facility] COLONOSCOPY, DIAGNOSTIC (RECTUM) 05/17/2014 normal, repeat 10 yrs EGD, FLEXIBLE, DIAGNOSTIC 05/31/2015 sm HH, mild stomach irritation EGD, FLEXIBLE, DIAGNOSTIC 05/31/2015 ESOPHAGOGASTRODUODENOSCOPY (EGD), FLEXIBLE, TRANSORAL, DIAGNOSTIC performed by Ying Goff DO at [facility] LAPAROSCOPY, CHOLECYSTECTOMY WITH CHOLANGIOGRAPHY 09/21/2009 Laparoscopic cholecystectomy, cholangiogram 09/21/09 Dr. Edwards REMOVE TONSILS & ADENOIDS, UNDER 12 UMBIL HERNIA REPAIR (REDUCIBLE) AGE 5+YR 2016 Review of patient's allergies indicates: Allergen Reactions Darvocet [Propoxyphene N-Acetaminophen] Headaches-adverse reaction Dobutamine Severe migraine headache Morphine Sulfate irritability Oxycodone Hives Family History Problem Relation Age of Onset Stroke Grandmother (Paternal) Heart Disorder Father age 47 [place] Hypertension Sister Hypertension Brother from brain bleed Hypertension Mother Dementia Mother No Known Problems Brother Alcohol and Other Disorders Associated Son Arthritis Son ? bamboo spine Eye Problems No significant family history Denies FH of eye problems Social History Tobacco Use Smoking status: Never Smokeless tobacco: Never Vaping Use Vaping Use: Never used Substance Use Topics Alcohol use: Yes Comment: Very rarely Drug use: No OBJECTIVE: BP 116/70 | Pulse 83 | Temp 36.5 C (97.7 F) (Tympanic) | Ht 1.702 m (5' 7") | Wt 119.4 kg (263 lb 3.2 oz) | LMP 01/12/2014 | SpO2 98% | BMI 41.22 kg/m | BSA 2.38 m PHYSICAL EXAM: General: alert, healthy, no distress, well nourished and well developed Head: Normocephalic, atraumatic Eye Exam: PERRLA, EOMI, Conjunctiva are pink and non-injected, sclera clear Ears: External ears normal, Canal clear, TM nml Nose: no mucosal erythema, no mucosal edema, no purulent discharge Oropharynx: no exudate and faint erythema rt pnd site Neck: supple, no adenopathy, no JVD, thyroid normal size, non-tender, without nodularity Lymph: No palpable lymphadenopathy. Heart: regular Rhythm and rate, IL 64, no murmurs. Lungs: lungs clear to auscultation Abdomen: soft, non-tender, normal bowel sounds, no masses or organomegaly, no bruits Extremities: no edema, no clubbing, no cyanosis Neuro Exam: alert & oriented x 3 with fluent speech, no focal motor deficits, gait normal Skin: skin color, texture, turgor are normal, no rashes ASSESSMENT/PLAN: Preoperative general physical examination (Primary) - ECHO, COMPLETE (2D), TRANS-THORACIC; Future; Expected date: 06/11/2023 - URINALYSIS, REFLEX TO CULTURE (NOT FOR NEUTROPENIC PATIENTS); Future; Expected date: 07/01/2023 Primary osteoarthritis of both knees - ECHO, COMPLETE (2D), TRANS-THORACIC; Future; Expected date: 06/11/2023 - URINALYSIS, REFLEX TO CULTURE (NOT FOR NEUTROPENIC PATIENTS); Future; Expected date: 07/01/2023 Nonrheumatic tricuspid valve regurgitation - ECHO, COMPLETE (2D), TRANS-THORACIC; Future; Expected date: 06/11/2023 Abnormal stress test - ECHO, COMPLETE (2D), TRANS-THORACIC; Future; Expected date: 06/11/2023 Type 2 diabetes mellitus with hemoglobin A1c goal of less than 7.0% (HCC) - URINALYSIS, REFLEX TO CULTURE (NOT FOR NEUTROPENIC PATIENTS); Future; Expected date: 07/01/2023 Dyslipidemia, goal LDL below 70 Severe obesity with body mass index (BMI) of 35.0 to 39.9 with serious comorbidity (HCC) Gastroesophageal reflux disease without esophagitis Migraine without aura and without status migrainosus, not intractable Iron deficiency anemia secondary to inadequate dietary iron intake ct [facility] Has cardiology appt tomorrow Patient is at low-moderate risk For perioperative cardiac event. Await echo, if normal no may proceed with surgery Urine test 1 wk before surgery Follow-up: Return if symptoms worsen or fail to improve. | Check-out note: As wilbur Cc - referring provider.. (This note was completed using the dictation program Fluency Direct. As such, there may be misspellings, word substitutions, or other variations that should not change the essence of the clinical content of this encounter note. If there is need for further clarification, please direct questions to the provider listed above.) Patient and / caregiver verbalize understanding of above instructions and agrees with plan of care. Shirin Danielle MD 06/11/2023 documented in this encounter Nursing Notes * Jazmin Olmedo MED ASSIST - 06/11/2023 9:06 AM EDT Chief Complaint Patient presents with Physical-Exam Complete physical exam for pre-op clearance, left total knee replacement. Pt denied any new concerns. documented in this encounter Plan of Treatment Upcoming Encounters Date Type Department Care Team (Late st Contact Info) Description 06/25/2023 10:45 AM EDT Cardiac Studies Cardiac Studies, [facility] [address] [facility] [place] [address] 08/27/2023 1:40 PM EDT Office Visit General Internal Medicine [facility] [address] [facility] [place] [address] Shirin Danielle MD [address] [place] [address] 11/05/2023 7:15 AM EDT Imaging Radiology [address] [place] [address] 03/17/2024 3:30 PM EST Office Visit Neurology [facility] [address] [facility] [place] [address] Odalis Holder PA-C [address] [facility] [place] [address] Scheduled Orders Name Type Priority Associated Diagnoses Orde r Schedule ECHO, COMPLETE (2D), TRANS-THORACIC Echocardiology STAT Preoperative general physical examination Primary osteoarthritis of both knees Nonrheumatic tricuspid valve regurgitation Abnormal stress test Expected: 06/11/2023, Expires: 07/11/2025 URINALYSIS, REFLEX TO CULTURE (NOT FOR NEUTROPENIC PATIENTS) Lab Routine Preoperative general physical examination Primary osteoarthritis of both knees Type 2 diabetes mellitus with hemoglobin A1c goal of less than 7.0% ([facility]) Expected: 07/01/2023, Expires: 06/10/2024 Scheduled Procedures Name Priority Associated Diagnoses Date/Ti me COLONOSCOPY FLEXIBLE PROXIMA L DIAGNOSTIC Recall Special screening for malignant neoplasms, colon Health Maintenance Due Date Last Done Comments Cologuard 2007 Fecal Occult Blood Test 2007 Sigmoidoscopy 2007 Pneumococcal Vaccine: Pediatrics (0 to 5 Years) and At-Risk Patients (6 to 64 Years) (2 of 2 - PPSV23 or PCV20) 10/16/2022 08/21/2022 COVID-19 Vaccine ( season) 2022 02/11/2021, 08/11/2020, 07/21/2020 HbA1c 08/19/2023 02/18/2023, 05/0 11/2022, 01/09/2022, Additional history exists Depression Screening 08/22/2023 08/21/2022, 12/11/2016 (Declined) Mammogram 11/01/2023 10/31/2022, 09/30, 10/17/2020, Additional history exists Diabetic Eye Exam 11/29/2023 11/28/2022, , 02/11/2012 Albumin/Creatinine Ratio 02/19/2024 023, 01/09/2022, 08/20/2019 GFR 02/19/2024 02/18/2023, 0511/2022, 04/12/2022, Additional history exists Diabetic Foot Exam 02/26/2024 02/25/2023 Colonoscopy 05/17/2024 05/17/2014, 05/01/2004 Colorectal Cancer Screening 05/17/2024 Pap Smear 03/19/2026 03/19/2023, 09/2021, 07/15/2018, Additional [...] Not on filedocumented as of this encounter Visit Diagnoses Diagnosis Preoperative general physical examination- Primary Other specified pre-operative examination Primary osteoarthritis of both knees Primary localized osteoarthrosis, lower leg Nonrheumatic tricuspid valve regurgitation Tricuspid valve disorders, specified as nonrheumatic Abnormal stress test Other nonspecific abnormal cardiovascular system function study Type 2 diabetes mellitus with hemoglobin A1c goal of less than 7.0% (HCC) Dyslipidemia, goal LDL below 70 Other and unspecified hyperlipidemia Severe obesity with body mass index (BMI) of 35.0 to 39.9 with serious comorbidity (HCC) Gastroesophageal reflux disease without esophagitis Esophageal reflux Migraine without aura and without status migrainosus, not intractable Migraine without aura, without mention of intractable migraine without mention of status migrainosus Iron deficiency anemia secondary to inadequate dietary iron intake documented in this encounter Care Teams Grinder Set Up Operator Jig Relationship Specialty Start Date End Date Shirin Danielle MD [address] [place] [address] PCP - General Internal Medicine 03/26/19 documented as of this encounter
--- OUTSIDE RECORDS SUMMARY | 2023-07-09 14:09 | External Medical Summary | Summary of Care ---
Author Name Unknown Organization [facility] Address [address] [place] [address] Phone [phone] Care Team Providers Care Business Office Coordinator Name Role Phone Shirin Danielle MD Primary Care Provider [phone] Reason for Visit * Reason Onset Date Comments Test Results 07/05/2023 Encounter Details Date Type Department Care Team (Late st Contact Info) Description 07/05/2023 Telephone General Internal Medicine [facility] [address] [place] [address] René Douglas MD [address] [place] [address] Test Results Allergies Active Allergy Reactions Criticality [...] mRNA, LNP-s, No Pre serve, 2-Dose Series (Trubates) 02/11/2021,08/11/2020,07/21/2020 Pneumococcal Conjugate Vacc, 13 Valent (Prevnar) [...] and verbalized understanding, will comply. Pharmacy confirmed. * Telephone Encounter - Jazmin Olmedo MED [...] PM EDT Office Visit General Internal Medicine [facility] [address] [facility] [place] [address] Shirin Danielle MD [address] [facility] [place] [address] 11/05/2023 7:15 AM EDT Imaging Radiology [address] [facility] [place] [address] 03/17/2024 3:30 PM EST Office Visit Neurology [facility] [address] [facility] [place] [address] Odalis Holder PA-C [address] [place] [address] Scheduled Procedures Name Priority Associated Diagnoses Date/Ti [...] Vaccine ( season) 2022 02/11/2021, 08/11/2020, 07/21/2020 Depression Screening 08/22/2023 08/21/2022, 12/11/2016 (Declined) Mammogram 11/01/2023 10/31/2022, 07, 10/17/2020, Additional history exists Diabetic Eye Exam [...] filedocumented as of this encounter Care Teams Business Office Coordinator Relationship Specialty Start Date End Date Shirin Danielle MD [address] [place] [address] PCP - General Internal Medicine 03/26/19 documented as of this encounter
--- OUTSIDE RECORDS SUMMARY | 2023-07-09 14:09 | External Medical Summary | Summary of Care ---
Author Name Unknown Organization [facility] Address [address] [place] [address] Phone [phone] Care Team Providers Care Svp Group Director Name Role Phone Shirin Danielle MD Primary Care Provider [phone] Encounter Details Date Type Department Care Team (Late st Contact Info) Description 07/03/2023 Orders Only General Internal Medicine [facility] [address] [place] [address] Shirin Danielle MD [address] [place] [address] Allergies Active Allergy Reactions Criticality Noted Date Comments Propoxyphene N-Acetaminophen 010 Headaches-adverse reaction Dobutamine 01/09/2022 Severe migraine headache Morphine Sulfate 09/29/2009 irritability Oxycodone Hives 01/30/2021 documented as of this encounter (statuses as of 07/03/2023) Medications Medication Sig Dispensed Refills Start Date [...] THE DAY 90 Capsule 3 07/02/2023 Active documented as of this encounter (statuses as of 07/03/2023) Active Problems Problem Noted Date Diagnosed Date [...] as of this encounter (statuses as of 07/03/2023) Resolved Problems Problem Noted Date Diagnosed Date Resolved Date Body mass index (BMI) of 40. 0 to 44.9 in adult 12/31/2016 12/03/2019 Overview: Per Obesity protocol #1 Chronic cholecystitis 09/29/20092020 Elevated blood pressure, situational 02/13/2007 12/03/2019 ADVANCE DIRECTIVE INFORMATION 10/04/2005 12/03/2019 Overview: Information given to patient Anemia 12/25/2000 12/03/2019 Dyslipidemia, goal to be determined 12/03/2019 documented as of this encounter (statuses as of 07/03/2023) Immunizations Name Administration Dates Next Due COVID-19 [...] on file documented as of this encounter Plan of Treatment Upcoming Encounters Date Type Department Care Team (Late st Contact Info) Description 08/27/2023 1:40 PM EDT Office Visit General Internal Medicine [facility] [place] [address] [place] [address] Shirin Danielle MD [address] [facility] [place] [address] 11/05/2023 7:15 AM EDT Imaging Radiology [facility] 1st [facility] [address] [facility] [place] [address] 03/17/2024 3:30 PM EST Office Visit Neurology [facility] [place] [address] [place] [address] Odalis Holder PA-C 21 [facility] [place] [address] Scheduled Procedures Name Priority Associated Diagnoses Date/Ti me COLONOSCOPY FLEXIBLE PROXIMA L DIAGNOSTIC Recall Special screening for malignant neoplasms, colon Health Maintenance Due Date Last Done Comments Cologuard 2007 Fecal Occult Blood Test 2007 Sigmoidoscopy 2007 Pneumococcal Vaccine: Pediatrics (0 to 5 Years) and At-Risk Patients (6 to 64 Years) (2 of 2 - PPSV23 or PCV20) 10/16/2022 08/21/2022 COVID-19 Vaccine (4 - 2022-24 season) 2022 02/11/2021, 08/11/2020, 07/21/2020 Depression Screening [...] Not on filedocumented as of this encounter Procedures Procedure Name Priority Date/Time Associated Diagnosis Comments CHEMISTRY-OUTSIDE Routine 06/10/2023 documented in this encounter Results * (ABNORMAL) CHEMISTRY-OUTSIDE (06/10/2023) Not all results display below - see scan for full detail OUTSIDE LAB (SEE SCANNED REPORT) Comment:SCAN INCLUDES - CBCD , PT INR, PTT, A1C, CMP CREATININE-OUTSID E LAB 0.73 0.6 - 1.2 MG/DL OUTSIDE LAB (SEE SCANNED REPORT) EGFR-OUTSIDE LAB 88.9 ML/MIN OUT SIDE LAB (SEE SCANNED REPORT) POTASSIUM-OUTSIDE LAB 4.5 3.5 - 5.1 MMOL/L OUTSIDE LAB (SEE SCANNED REPORT) GLUCOSE-OUTSIDE LAB 99 70 - 99 MG/DL OUTSIDE LAB (SEE SCANNED REPORT) HOURS FASTING OUTSID E LAB (SEE SCANNED REPORT) TRIGLYCERIDES-OUT SIDE LAB OUTSIDE LAB (SEE SCANNED REPORT) CHOLESTEROL-OUTSI DE LAB OUTSIDE LAB (SEE SCANNED REPORT) HDL-OUTSIDE LAB OUTS ALEKS LAB (SEE SCANNED REPORT) CHOL/HDL RATIO-OUTSIDE LAB OUTSIDE LA B (SEE SCANNED REPORT) LDL (CALCULATED)-OUTS ALEKS LAB OUTSIDE LAB (SEE SCANNED REPORT) LDL (DIRECT MEASURE)-OUTSIDE LAB OUTSIDE LAB (SEE SCANNED REPORT) HEMOGLOBIN, [id number] LAB 6.5(A) 4.5 - 5.6 % OUTSIDE LAB (SEE SCANNED REPORT) PHOSPHORUS-OUTSID E LAB OUTSIDE LAB (SEE SCANNED REPORT) PTH-OUTSIDE LAB OUTS ALEKS LAB (SEE SCANNED REPORT) MICROALBUMIN RATIO-OUTSIDE LAB OUTSIDE LA B (SEE SCANNED REPORT) PROTEIN, UA-OUTSIDE LAB OUTSIDE LAB (SEE SCANNED REPORT) HGB 11.8(A) 12.0 - 16.0 G/DL OUTSIDE LAB (SEE SCANNED REPORT) 06/10/2023 Honorio Rodríguez DO LABORATORY OUTSIDE LAB (SEE SCANNED REPORT) documented in this encounter Care Teams Svp Group Director Relationship Specialty Start Date End Date Shirin Danielle MD [address] [place] [address] PCP - General Internal Medicine 03/26/19 documented as of this encounter
--- OUTSIDE RECORDS SUMMARY | 2023-07-09 14:09 | External Medical Summary | Summary of Care ---
Author Name Unknown Organization [facility] Address [address] [place] [address] Phone [phone] Care Team Providers Care Sheet Folder Name Role Phone Shirin Danielle MD Primary Care Provider [phone] Reason for Visit * Reason Onset Date Comments Test Results 07/05/2023 Encounter Details Date Type Department Care Team (Late st Contact Info) Description 07/05/2023 Telephone General Internal Medicine [facility] [address] [place] [address] René Caputo MD [address] [place] [address] Test Results Allergies Active Allergy Reactions Criticality [...] as of this encounter Miscellaneous Notes * Telephone Encounter - Jazmin Olmedo MED ASSIST - 07/05/2023 1:23 PM EDT Called patient, left message to return call. MyG sent * Telephone Encounter - Jazmin Olmedo MED ASSIST - 07/05/2023 1:21 PM EDT ----- Message from René Caputo MD sent at 07/05/2023 12:30 PM EDT ----- Possible uti, would start amoxicillin 500 mg tid for 5 days, she should contact surgeon to see if they need to delay surgery documented in this encounter Plan of Treatment Upcoming Encounters Date Type Department Care Team (Late st Contact Info) Description 08/27/2023 1:40 PM EDT Office Visit General Internal Medicine [facility] [address] [place] [address] Shirin Danielle MD [address] [facility] [place] [address] 11/05/2023 7:15 AM EDT Imaging Radiology [address] 132 [facility] [place] [address] 03/17/2024 3:30 PM EST Office Visit Neurology [facility] [place] 200 [facility] [place] [address] Odalis Holder PA-C 21 [facility] [place] [address] Scheduled Procedures Name Priority Associated Diagnoses Date/Ti me COLONOSCOPY FLEXIBLE PROXIMA L DIAGNOSTIC Recall Special screening for malignant neoplasms, colon Health Maintenance Due Date Last Done Comments Cologuard 2007 Fecal Occult Blood Test 2007 Sigmoidoscopy 2007 Pneumococcal Vaccine: Pediatrics (0 to 5 Years) and At-Risk Patients (6 to 64 Years) (2 of 2 - PPSV23 or PCV20) 10/16/2022 08/21/2022 COVID-19 Vaccine (4 - 2022- season) 2022 02/11/2021, 08/11/2020, 07/21/2020 Depression Screening [...] filedocumented as of this encounter Care Teams Sheet Folder Relationship Specialty Start Date End Date Shirin Danielle MD [address] [place] [address] PCP - General Internal Medicine 03/26/19 documented as of this encounter
--- OUTSIDE RECORDS SUMMARY | 2023-07-09 14:09 | External Medical Summary ---
Author Name Unknown Address Unknown Organization K01:[facility] [place] [address] [facility] [place]. [place] [address] Laboratory Report Ordering Provider Test Date Status BILLY PASTOR 07/01/2023 12:32:45 Final Cc DrEllis

<10,000 colonies/ml mixed normal briana Observation Date Value Abnormality Reference (Units) Status Bacteria identified in Specimen by Culture 07/01/2023 12:32:45 [id number]^BETA STREPTOCOCCUS GROUP B Abnormal Final 10,000 to 100,000 colonies/m L Beta Streptococcus group B Performing Location [facility] [place] [address] [place] [address] Ordering Provider Test Date Status BILLY PASTOR 07/01/2023 12:32:45 Final Observation Date Value Abnormality Reference (Units ) Status Penicillin susceptibility 07/01/2023 12:32:45 <=0.06 Susceptible Final Vancomycinsusceptibility 07/01/2023 12:32:45 0.5 Susceptible Final Test: Culture, Urine, Quanti tative
Specimen Source: Urine, Clean Catch
Specimen Type: Urine
Specimen Date: 07/01/2023 12:32 PM
Result Date: 07/04/2023 12:48 PM
Result Status: Final result
Abnormal: Yes
Resulting Lab: [facility]
[address]
[place] [address]

CULTURE

10,000 to 100,000 colonies/mL Beta Streptococcus group B (Abnormal)

<10,000 colonies/ml mixed normal briana

SUSCEPTIBILITY

Beta Streptococcus
group B
METHOD MICROBROTH
DILUTIONS

PENICILLIN G <=0.06 Susceptible
VANCOMYCIN 0.5 Susceptible

null Performing Location [facility] [place] [address] [facility] [address]
--- OUTSIDE RECORDS SUMMARY | 2023-07-09 14:09 | External Medical Summary | Summary of Care ---
Author Name Unknown Organization [facility] Address [address] [place] [address] Phone [phone] Care Team Providers Care Lead Mobile Developer Name Role Phone Shirin Danielle MD Primary Care Provider [phone] Reason for Visit * Reason Onset Date Comments Information 06/26/2023 Encounter Details Date Type Department Care Team (Late st Contact Info) Description 06/26/2023 Telephone Cardiology, [facility] [address] [place] [facility] [place] [address] Phuong Richardson CRNP [address] [facility] [place] [address] Information Allergies Active Allergy Reactions Criticality Noted Date Comments Propoxyphene N-Acetaminophen 010 Headaches-adverse reaction Dobutamine 01/09/2022 Severe migraine headache Morphine Sulfate 09/29/2009 irritability Oxycodone Hives 01/30/2021 documented as of this encounter (statuses as of 06/27/2023) Medications Medication Sig Dispensed Refills Start Date [...] as of this encounter (statuses as of 06/27/2023) Active Problems Problem Noted Date Diagnosed Date [...] as of this encounter (statuses as of 06/27/2023) Resolved Problems Problem Noted Date Diagnosed Date Resolved Date Body mass index (BMI) of 40. 0 to 44.9 in adult 12/31/2016 12/03/2019 Overview: Per Obesity protocol #1 Chronic cholecystitis 09/29/20092020 Elevated blood pressure, situational 02/13/2007 12/03/2019 ADVANCE DIRECTIVE INFORMATION 10/04/2005 12/03/2019 Overview: Information given to patient Anemia 12/25/2000 12/03/2019 Dyslipidemia, goal to be determined 12/03/2019 documented as of this encounter (statuses as of 06/27/2023) Immunizations Name Administration Dates Next Due COVID-19 [...] encounter Miscellaneous Notes * Telephone Encounter - Nicole Garcia LPN - 06/27/2023 11:51 AM EDT Faxed per request * Telephone Encounter - Phuong Richardson CRNP - 06/26/2023 8:59 AM EDT Echocardiogram performed yesterday, 06/25/2023. LVEF normal 64%. No wall motion abnormalities or significant valvular disease. Please see prior office visit note for preoperative risk stratification.Patient deemed moderate but acceptable risk to proceed. Please fast office visit note in this telephone encounter to Dr. Rodríguez at [facility]. Patient is surgery as scheduled for 07/09/2023. XOCHITL [place]abb documented in this encounter Plan of Treatment Upcoming Encounters Date Type Department Care Team (Late st Contact Info) Description 08/27/2023 1:40 PM EDT Office Visit General Internal Medicine [facility] [address] [place] [address] Shirin Danielle MD 200 [facility] [place] [address] 11/05/2023 7:15 AM EDT Imaging Radiology [facility] [place] [address] [place] [address] 03/17/2024 3:30 PM EST Office Visit Neurology [facility] [place] [address] [facility] [address] Odalis Holder PA-C [address] [place] [address] Scheduled Procedures Name Priority Associated Diagnoses Date/Ti me COLONOSCOPY FLEXIBLE PROXIMA L DIAGNOSTIC Recall Special screening for malignant neoplasms, colon Health Maintenance Due Date Last Done Comments Cologuard 2007 Fecal Occult Blood Test 2007 Sigmoidoscopy 2007 Pneumococcal Vaccine: Pediatrics (0 to 5 Years) and At-Risk Patients (6 to 64 Years) (2 of 2 - PPSV23 or PCV20) 10/16/2022 08/21/2022 COVID-19 Vaccine ( - 2022- season) 2022 02/11/2021, 08/11/2020, 07/21/2020 HbA1c 08/19/2023 02/18/2023, 05/0 11/2022, 01/09/2022, Additional history exists Depression Screening 08/22/2023 08/21/2022, 12/11/2016 (Declined) Mammogram 11/01/2023 10/31/2022, 09/30, 10/17/2020, Additional history exists Diabetic Eye Exam 11/29/2023 11/28/2022, , 02/11/2012 Albumin/Creatinine Ratio 02/19/2024 023, 01/09/2022, 08/20/2019 GFR 02/19/2024 02/18/2023, 05/0 11/2022, 04/12/2022, Additional history exists Diabetic Foot Exam 02/26/2024 02/25/2023 Colonoscopy 05/17/2024 05/17/2014, 05/01/2004 Colorectal Cancer Screening 05/17/2024 Pap Smear 03/19/2026 03/19/2023, 11/0 09/2021, 07/15/2018, Additional history exists Lipid Panel [...] filedocumented as of this encounter Care Teams Lead Mobile Developer Relationship Specialty Start Date End Date Shirin Danielle MD [address] [facility] [place] [address] PCP - General Internal Medicine 03/26/19 documented as of this encounter
--- OUTSIDE RECORDS SUMMARY | 2023-07-09 14:09 | External Medical Summary | Summary of Care ---
Author Name Unknown Organization [facility] Address [address] [facility] [place] [address] Phone [phone] Care Team Providers Care Coke Still Cleaner Name Role Phone Shirin Danielle MD Primary Care Provider [phone] Encounter Details Date Type Department Care Team (Late st Contact Info) Description 06/12/2023 Orders Only PATIENT PORTAL DO NOT DELETE THIS DEPT USED BY [place] [address] Allergies Active Allergy Reactions Criticality Noted Date Comments Propoxyphene N-Acetaminophen 010 Headaches-adverse reaction Dobutamine 01/09/2022 Severe migraine headache Morphine Sulfate 09/29/2009 irritability Oxycodone Hives 01/30/2021 documented as of this encounter (statuses as of 06/12/2023) Medications Medication Sig Dispensed Refills Start Date [...] 15 minutes 25 Tablet 11 01/09/2022 Active Clobetasol Propionate 0.05 % External Cream (Temovate)Indicat [...] as of this encounter (statuses as of 06/12/2023) Active Problems Problem Noted Date Diagnosed Date [...] as of this encounter (statuses as of 06/12/2023) Resolved Problems Problem Noted Date Diagnosed Date Resolved Date Body mass index (BMI) of 40. 0 to 44.9 in adult 12/31/2016 12/03/2019 Overview: Per Obesity protocol #1 Chronic cholecystitis 09/29/20092020 Elevated blood pressure, situational 02/13/2007 12/03/2019 ADVANCE DIRECTIVE INFORMATION 10/04/2005 12/03/2019 Overview: Information given to patient Anemia 12/25/2000 12/03/2019 Dyslipidemia, goal to be determined 12/03/2019 documented as of this encounter (statuses as of 06/12/2023) Immunizations Name Administration Dates Next Due COVID-19 mRNA, LNP-s, No Pre serve, 2-Dose Series ([employer]) 02/11/2021,08/11/2020,07/21/2020 Pneumococcal Conjugate Vacc, 13 Valent (Prevnar) [...] Care Team (Late st Contact Info) Description 06/12/2023 3:30 PM EDT Office Visit Cardiology, [facility] [address] [place] [address] Phuong Richardson CRNP [address] [facility] [place] [address] 08/27/2023 1:40 PM EDT Office Visit General Internal Medicine [facility] [address] [facility] [place] [address] Shirin Danielle MD 200 [facility] [place] [address] 11/05/2023 7:15 AM EDT Imaging Radiology [facility] [address] [facility] [address] [place] [address] 03/17/2024 3:30 PM EST Office Visit Neurology [facility] [address] [facility] [place] [address] Odalis Holder PA-C 21 [facility] [place] [address] Scheduled Procedures Name Priority Associated Diagnoses Date/Ti me COLONOSCOPY FLEXIBLE PROXIMA L DIAGNOSTIC Recall Special screening for malignant neoplasms, colon Health Maintenance Due Date Last Done Comments Cologuard 2007 Fecal Occult Blood Test 2007 Sigmoidoscopy 2007 Pneumococcal Vaccine: Pediatrics (0 to 5 Years) and At-Risk Patients (6 to 64 Years) (2 of 2 - PPSV23 or PCV20) 10/16/2022 08/21/2022 Diabetic Eye Exam 11/22/2022 11/22/2021, 02/11/2012 COVID-19 Vaccine ( season) 2022 02/11/2021, 08/11/2020, 07/21/2020 HbA1c 08/19/2023 02/18/2023, 05/0 11/2022, 01/09/2022, Additional history exists Depression Screening 08/22/2023 08/21/2022, 12/11/2016 (Declined) Mammogram 11/01/2023 10/31/2022, 09/30, 10/17/2020, Additional history exists Albumin/Creatinine Ratio 02/19/2024 023, 01/09/2022, 08/20/2019 GFR 02/19/2024 02/18/2023, 050 11/2022, 04/12/2022, Additional history exists Diabetic Foot Exam 02/26/2024 02/25/2023 Colonoscopy 05/17/2024 05/17/2014, 05/01/2004 Colorectal Cancer Screening 05/17/2024 Pap Smear 03/19/2026 03/19/2023, 110 09/2021, 07/15/2018, Additional history exists Lipid Panel [...] filedocumented as of this encounter Care Teams Coke Still Cleaner Relationship Specialty Start Date End Date Shirin Danielle MD [address] [place] [address] PCP - General Internal Medicine 03/26/19 documented as of this encounter
--- OUTSIDE RECORDS SUMMARY | 2023-07-09 14:09 | External Medical Summary | Summary of Care ---
Author Name Unknown Organization [facility] Address [address] [place] [address] Phone [phone] Care Team Providers Care Dried Yeast Supervisor Name Role Phone Shirin Danielle MD Primary Care Provider Reason for Visit * Reason Comments Pre-op Clearance Total left knee with Dr. Rodríguez on 07/09/23. Palpitations only yesterday lasting two coughs on the way home- no other episodes. Edema in LE no worse then prior- stands all day at work. Denies chest pain, SOB and dizziness. Encounter Details Date Type Department Care Team (Latest Contact Info) Description 06/12/2023 3:30 PM EDT [facility] [address] Phuong [facility] [address] Pre-operative cardiovascular examination*; Coronary artery disease involving tonkawa coronary artery of tonkawa heart without angina pectoris; HTN, goal below 130/80; Dyslipidemia, goal LDL below 70; Preoperative cardiovascular examination Allergies Active Allergy Reactions Criticality Noted Date [...] Sign Reading Time Taken Comments Blood Pressure 114/72 06/12/2023 3:09 PM EDT Pulse 76 06/12/2023 3:09 PM EDT Temperature - - Respiratory Rate 15 06/12/2023 3:09 PM EDT Oxygen Saturation - - Inhaled Oxygen Concentration - - Weight 118.2 kg (260 lb 8 oz) 06/12/2023 3:09 PM EDT Height - - Body Mass Index 40.8 06/11/2023 9:04 AM EDT documented in this encounter Progress Notes * Phuong Richardson CRNP - 06/12/2023 3:30 PM EDT Cardiology Outpatient Visit 06/12/2023 Primary [place] Consultant: Dr. Mclain Past medical history: Presumed CAD Nondiagnostic Dobutamine stress test exacerbated migraine headache, 08/2021 Abnormal nuclear stress, small to moderate size reversible perfusion defect in the location of leftcircumflex coronary artery, 11/2021- medical management advised. Hypertension Dyslipidemia Prediabetes Obesity ? JAG HPI 63-year-old female presenting to the cardiology office today for preoperative risk stratification regarding upcoming left total knee replacement on 07/09/[address] [place] [facility] Last evaluated bythe undersigned approximately 6 months ago. Today the patient presents feeling well and offers no acute concerns. Considers herself a very active individual. Was on her feet a lot for work. Able to go up and down steps without chest pain. She does develop knee pain though which she is hoping will be fixed after having her surgery. No sustained palpitations. Denies lightheadedness or dizziness. No orthopnea or PND. No increased lower extremity edema. No fever, chills, cough, hematochezia, melena, or hemoptysis. She states she is compliant with all medications, and offers no side effects. EKG today showing normal sinus rhythm, 82 beats per minute. Blood pressure well controlled. Current Outpatient Medications Medication Sig Dispense Refill Magnesium 400 MG Oral Tablet 1/d--st 09/05/2021 1 Tablet 0 Clobetasol Propionate 0.05 % External Cream (Temovate) Apply topically to affected area 2 times a day. To affected area Till better then as needed 45 g 0 Aspirin EC 81 MG Oral Tablet Delayed Release Take 1 Tablet by mouth in the morning. 90 Tablet 3 Iron-Vitamin C 65-125 MG Oral Tablet (Vitron C) 1 tab 3d/wk as directed-st 08/21/2022 1 Tablet 0 Omeprazole 20 MG Oral [...] TAKE 1 TABLET DAILY 90 Tablet 3 FLONASE 50 MCG/ACT NA SUSP Two sprays each nostril once daily (Patient taking differently: Administer 1 [place]ina into nostril daily as needed.) 3 Bottle 3 Acetaminophen Extra Strength 500 MG Oral Tablet Take 2 Tablets by mouth every 8 hours as needed. 30Tab Nitroglycerin 0.4 MG Sublingual Tablet Sublingual (Nitrostat) Place under the tongue 1 Tablet every5 minutes as needed for Pain, Chest. up to 3 doses in 15 minutes (Patient not taking: Reported on 06/12/2023) 25 Tablet 11 Cetirizine HCl 10 MG Oral Tablet Take 1 Tablet by mouth in the morning. Riboflavin 400 MG Oral Capsule Take 1 Capsule by mouth in the morning. Since 01/2020-. 1 Capsule 0 Clindamycin HCl 300 MG Oral Capsule TAKE [...] performed by Ying Goff DO at [facility] LAPAROSCOPY, CHOLECYSTECTOMY WITH CHOLANGIOGRAPHY 09/21/2009 Laparoscopic cholecystectomy, cholangiogram 09/21/09 Dr. Edwards REMOVE TONSILS & ADENOIDS, UNDER 12 UMBIL HERNIA REPAIR (REDUCIBLE) AGE 5+YR 2016 Social History Tobacco Use Smoking status: Never Smokeless tobacco: Never Vaping Use Vaping Use: Never used Substance Use Topics Alcohol use: Yes Comment: Very rarely Drug use: No Review of patient's allergies indicates: Allergen Reactions Darvocet [Propoxyphene N-Acetaminophen] Headaches-adverse reaction Dobutamine Severe migraine headache Morphine Sulfate irritability Oxycodone Hives Review of Systems: See HPI for pertinent positives. All others negative, other than those noted in HPI. Physical Exam BP 114/72 | Pulse 76 | Resp 15 | Wt 118.2 kg (260 lb 8 oz) | LMP 01/12/2014 | BMI 40.80 kg/m | BSA 2.36 m General: No acute distress. A+Ox3. HEENT: Normocephalic. Atraumatic. Conjunctiva and sclera clear. NECK: No carotid bruits. No JVD. Carotid upstrokes are brisk. Heart: RRR. S1 and S2 noted without murmur, rubs, gallops. Lungs: Clear to auscultation. No wheezes, rhonchi, rales. Extremities: No edema. No clubbing or cyanosis. Pulses: radial=2/4, posterior tibial=2/4, dorsalis pedis = 2/4. NEURO: No focal deficits. PSYCH: Normal. Lab data/imaging study review: Nuclear stress 12/18/2021 The low intensity exercise/Lexiscan myocardial perfusion imaging study is abnormal consistent with ischemia with a small to moderate sized reversible perfusion defect encompassing the apical inferolateral wall and apical lateral wall. Per review of the quantitative analysis the reversible perfusion defect encompasses 28% of the leftcircumflex coronary territory. Gated SPECT imaging reveals mild inferolateral hypokinesis. The left ventricular ejection fraction was calculated to be > 70% DSE 09/22/2021 The examination is inadequate for the evaluation of the referral indication. Consider stress nuclear (pharmacologic). Test was terminated due to patient developing a severe migraine. The stress echo is indeterminate for inducible ischemia. Target heart rate was not achieved. Resting Study: The qualitative LV ejection fraction is 55-59% (normal). The left ventricular diastolic function is mildly abnormal (grade I). Mild mitral regurgitation is present. Impression/Plan: 1. Coronary artery disease involving tonkawa coronary artery of tonkawa heart without angina pectoris -Prior episodes of chest pain and dyspnea. -Nuclear stress testing was abnormal consistent with a small defect in the left circumflex territory, 11/2021 -Symptom resolution with the addition of amlodipine. 1. Continue aspirin 81 mg daily 2. Continue losartan 25 mg daily 3. Continue amlodipine 2.5 mg daily 3. HTN, goal below 130/80 Well controlled. No medication changes at this time. Plan as stated above. 4. Dyslipidemia, goal LDL below 70 1. Continue rosuvastatin 40 mg daily. 5. Preoperative cardiovascular risk stratification In terms of preop risk assessment, per Martin Criteria, patient was counseled that she would be placedat a [id number] risk (less than 6.6 %) for any adverse perioperative cardiovascular events associated with left knee surgery. Patient appears well compensated from a cardiac standpoint. Able to complete a 4 met workload without difficulty. Recommend proceeding with a resting echocardiogram to reassess LV systolic function and valvular status. Should echocardiogram come back unremarkable okayto proceed with surgery. Patient states she understands and is accepting of that risk and wishes toproceed with surgery. Recommend surgery taking place in a hospital setting. Aspirin should be continued perioperatively given presumed coronary disease. All cardiac medications should be continued can you perioperatively. The patient agrees to the above plan and will call with additional questions or concerns. ER with all emergencies advised. Follow-up: Return in about 6 months (around 12/13/2023). | Check-out note: Needs echo prior to surgery (07/09/2023) orders placed by PCP. 6 mos SH I spent a total of 40 minutes on the date of service in preparation, delivery, and documentation ofthe care provided to Jessi Steel excluding any time spent in the performance of separately billed services. XOCHITL Chand, Department of Cardiology This chart was completed in part utilizing [employer] Speech Voice Recognition Software. Grammatical errors, random word insertions, prounoun errors, and incomplete sentences are an occasional consequence of this system due to software limitations, ambient noise, and hardware issues. Any formal questions or concerns about the content, text, or information contained within the body of this dictation should be directly addressed to the provider for clarification. documented in this encounter Nursing Notes * Master Schultz LPN - 06/12/2023 3:10 PM EDT Patient identified by full name and date of Examination Room: 4 Name: Jessi Steel Date of : (1960). Reason for Visit: Pre-Op Interim Hospitalization(s): Denies Problems/Concerns: See chief complaint Chest Pain/SOB: Denies [facility] Discussed: Not applicable [facility] is a way you can talk to your provider online through e-mail. Would you like to sign up? I can activate it for you? ALREADY ACTIVE Patient was instructed to not get up on the exam table until directed and assisted by their provider; patient is to remain seated in the chair/ wheelchair/ exam table for fall prevention and safety reasons. Patient is aware to have assistance to step down off exam table with personnel. Patient voiced full comprehension of instructions. documented in this encounter Plan of Treatment Upcoming Encounters Date Type Department Care Team (Late st Contact Info) Description 06/25/2023 10:45 AM EDT Cardiac Studies Cardiac Studies, [facility] 132 [facility] [place] [address] 08/27/2023 1:40 PM EDT Office Visit General Internal Medicine [facility] [address] [facility] [place] [address] Shirin Danielle MD [address] [facility] [place] [address] 11/05/2023 7:15 AM EDT Imaging Radiology [facility] [address] [place] [address] 03/17/2024 3:30 PM EST Office Visit Neurology [facility] [address] [facility] [place] [address] Odalis Holder PA-C [facility] [place] [address] Scheduled Orders Name Type Priority Associated Diagnoses Orde r Schedule EKG EKG Routine Pre-operative cardiovascular examination Ordered: 06/12/2023 Scheduled Procedures Name Priority Associated Diagnoses Date/Ti [...] as of this encounter Visit Diagnoses Diagnosis Pre-operative cardiovascular examination- Primary Coronary artery disease involving tonkawa coronary artery of tonkawa heart without angina pectoris HTN, goal below 130/80 Unspecified essential hypertension Dyslipidemia, goal LDL below 70 Other and unspecified hyperlipidemia Preoperative cardiovascular examination Pre-operative cardiovascular examination documented in this encounter Care Teams Dried Yeast Supervisor Relationship Specialty Start Date End Date Shirin Danielle MD [address] [facility] [place] [address] PCP - General Internal Medicine 03/26/19 documented as of this encounter"
--- OUTSIDE RECORDS SUMMARY | 2023-07-09 14:09 | External Medical Summary | Summary of Care ---
Author Name Unknown Organization [facility] Address [address] [place] [address] Phone [phone] Care Team Providers Care Fish Farm Laborer Name Role Phone Shirin Danielle MD Primary Care Provider [phone] Encounter Details Date Type Department Care Team (Late st Contact Info) Description 06/26/2023 Telephone Cardiology, [facility] [address] [place] [address] Phuong Richardson CRNP [address] [place] [address] Allergies Active Allergy Reactions Criticality Noted Date [...] mRNA, LNP-s, No Pre serve, 2-Dose Series (DGSE) 02/11/2021,08/11/2020,07/21/2020 Pneumococcal Conjugate Vacc, 13 Valent (Prevnar) [...] encounter Miscellaneous Notes * Telephone Encounter - Phuong Richardson CRNP - 06/26/2023 8:59 AM EDT Echocardiogram performed yesterday, 06/25/2023. LVEF normal 64%. No wall motion abnormalities or significant valvular disease. Please see prior office visit note for preoperative risk stratification.Patient deemed moderate but acceptable risk to proceed. Please fast office visit note in this telephone encounter to Dr. Rodríguez [place] [facility] [place]. Patient is surgery as scheduled for 07/09/2023. XOCHITL Babb documented in this encounter Plan of Treatment Upcoming Encounters Date Type Department Care Team (Late st Contact Info) Description 08/27/2023 1:40 PM EDT Office Visit General Internal Medicine [facility] [address] [id number] Shirin Danielle MD [address] [place] [address] [address] 11/05/2023 7:15 AM EDT Imaging Radiology [facility] 1st [facility] [place] 132 [facility] [place] [address] 03/17/2024 3:30 PM EST Office Visit Neurology [facility] [address] [place] [address] [address] Odalis Holder PA-C 21 [facility] [place] [address] Scheduled Procedures Name Priority Associated Diagnoses Date/Ti [...] 2022 02/11/2021, 08/11/2020, 07/21/2020 HbA1c 08/19/2023 02/18/2023, 050 11/2022, 01/09/2022, Additional history exists Depression Screening [...] filedocumented as of this encounter Care Teams Fish Farm Laborer Relationship Specialty Start Date End Date Shirin Danielle MD 200 [place] [address] PCP - General Internal Medicine 03/26/19 documented as of this encounter
--- OUTSIDE RECORDS SUMMARY | 2023-07-09 14:09 | External Medical Summary | Summary of Care ---
Author Name Unknown Organization [facility] Address [address] [place] [address] Phone [phone] Care Team Providers Care Sound Effects Supervisor Name Role Phone Shirin Danielle MD Primary Care Provider [phone] Reason for Visit * Reason Comments eRx-Medication Refill Encounter Details Date Type Department Care Team (Late st Contact Info) Description 07/01/2023 Refill General Internal Medicine [facility] 200 [place] [address] Shirin Danielle MD 200 [place] [address] Gastroesophageal reflux disease without esophagitis Allergies Active Allergy Reactions Criticality Noted Date Comments Propoxyphene N-Acetaminophen 010 Headaches-adverse reaction Dobutamine 01/09/2022 Severe migraine headache Morphine Sulfate 09/29/2009 irritability Oxycodone Hives 01/30/2021 documented as of this encounter (statuses as of 07/02/2023) Medications Medication Sig Dispensed Refills Start Date End Date Status FLONASE 50 MCG/ACT NA SUSPIndications :Chronic rhinitis Two sprays each nostril once daily 3 Bottle 3 3 Active Additional Information Patient taking differently: 1 SprayNasalDAILY PRN, Reported on 04/20/2022 Acetaminophen Extra Strength 500 MG Oral TabletIndicatio ns:Status post total right knee replacement Take 2 Tablets by mouth every 8 hours as needed. 30 Tab 0 1 Active Magnesium 400 MG Oral TabletIndicatio ns:Chronic migraine without aura without status migrainosus, not intractable 1/d--st 09/05/2021 1 Tablet 0 2 Active Nitroglycerin 0.4 MG Sublingual Tablet Sublingual (Nitrostat)Farzaneh cations:Chest pain, unspecified type,PACKER (dyspnea on exertion),Abnor mal nuclear stress test,HTN, goal below 130/80,Prediabe aryan,Dyslipidemi a, goal LDL below 70 Place under the tongue 1 Tablet every 5 minutes as needed for Pain, Chest. up to 3 doses in 15 minutes 25 Tablet 11 2 Active Additional Information Patient not taking.Reported on 06/12/2023 Clobetasol Propionate 0.05 % External Cream (Temovate)Indic ations:Lichen sclerosus of vulva Apply topically to affected area 2 times a day. To affected area Till better then as needed 45 g 0 2 Active Cetirizine HCl 10 MG Oral Tablet Take 1 Tablet by mouth in the morning. 0 Active Aspirin EC 81 MG Oral Tablet Delayed ReleaseIndicati ons:Dyslipidemi a, goal LDL below 70,Chest pain, unspecified type,PACKER (dyspnea on exertion),Abnor mal nuclear stress test,HTN, goal below 130/80,Prediabe aryan Take 1 Tablet by mouth in the morning. 90 Tablet 3 3 Active Riboflavin 400 MG Oral CapsuleIndicati ons:Migraine without aura and without status migrainosus, not intractable Take 1 Capsule by mouth in the morning. Since 01/2020-. 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 1 tab 3d/wk as directed-st 08/21/2022 1 Tablet 0 3 Active Losartan Potassium 25 MG Oral Tablet (Cozaar) TAKE 1 TABLET IN THE MORNING 90 Tablet 3 3 Active amLODIPine Besylate 2.5 MG Oral Tablet (Norvasc)Indica tions:Chest pain, unspecified type,PACKER (dyspnea on exertion),HTN, goal below 130/80,Precordi al chest pain,Cardiovasc ular stress test abnormal TAKE 1 TABLET IN THE MORNING 90 Tablet 3 3 Active Clindamycin HCl 300 MG Oral Capsule TAKE 2 CAPSULE BY ORAL ROUTE X1 DOSE, 1 HOUR BEFORE PROCEDURE 0 3 Active metFORMIN HCl ER 500 MG Oral Tablet Extended Release 24 Hour (Glucophage XR)Indications: Type 2 diabetes mellitus with hemoglobin A1c goal of less than 7.0% (HCC),Weight gain,Severe obesity with body mass index (BMI) of 35.0 to 39.9 with serious comorbidity (HCC) Take 4 Tablets by mouth daily with dinner. St 09/05/2021, inc 2 /d 02/20, inc 3 tabs 02/25/2023 and after 2 weeks inc to 4 tab with dinner 360 Tablet 3 3 Active Rosuvastatin Calcium 40 MG Oral Tablet (Crestor)Indica tions:Dyslipide shayne, goal LDL below 70 Take 1 Tablet by mouth in the morning. 90 Tablet 3 4 Active Propranolol HCl ER 80 MG Oral Capsule Extended Release 24 Hour (Inderal LA)Indications: Panic disorder TAKE 1 CAPSULE DAILY 90 Capsule 3 4 Active PARoxetine HCl 20 MG Oral Tablet (pAXil)Indicati ons:Adjustment disorder with anxious mood TAKE 1 TABLET DAILY 90 Tablet 3 4 Active Omeprazole 20 MG Oral Capsule Delayed Release (PriLOSEC)Indic ations:Gastroes ophageal reflux disease without esophagitis TAKE 1 CAPSULE DAILY 1 HOUR BEFORE FIRST MEAL OF THE DAY 90 Capsule 3 4 Active Omeprazole 20 MG Oral Capsule Delayed Release (PriLOSEC)Indic ations:Gastroes ophageal reflux disease without esophagitis TAKE 1 CAPSULE DAILY 1 HOUR BEFORE FIRST MEAL OF THE DAY 90 Capsule 1 3 07/02/19 24 Discontinued documented as of this encounter (statuses as of 07/02/2023) Active Problems Problem Noted Date Diagnosed Date Abnormal stress test 02/05/2022 Lichen sclerosus of vulva 02/05/2022 History of 2019 novel coronavirus disease (COVID -19) 02/05/2022 Hx laparoscopic cholecystectomy 11/29/2020 Iron deficiency anemia 11/29/2020 Primary osteoarthritis of both knees 11/29/2020 DDD (degenerative disc disease), lumbar 05/05/20 21 Generalized osteoarthritis 08/03/2020 HLA B27 (HLA [...] as of this encounter (statuses as of 07/02/2023) Resolved Problems Problem Noted Date Diagnosed Date Resolved Date Body mass index (BMI) of 40. 0 to 44.9 in adult 12/31/2016 12/03/2019 Overview: Per Obesity protocol #1 Chronic cholecystitis 09/29/20092020 Elevated blood pressure, situational 02/13/2007 12/03/2019 ADVANCE DIRECTIVE INFORMATION 10/04/2005 12/03/2019 Overview: Information given to patient Anemia 12/25/2000 12/03/2019 Dyslipidemia, goal to be determined 12/03/2019 documented as of this encounter (statuses as of 07/02/2023) Immunizations Name Administration Dates Next Due COVID-19 mRNA, LNP-s, No Pre serve, 2-Dose Series ([employer]) 02/11/2021,08/11/2020,07/21/2020 Pneumococcal Conjugate Vacc, 13 Valent (Prevnar) [...] encounter Miscellaneous Notes * Telephone Encounter - Payton Hernandez RPh - 07/02/2023 6:56 AM EDTSigned Prescriptions: Disp Refills Omeprazole 20 MG Oral Capsule Delayed Rele*90 Cap*3 Sig: TAKE 1CAPSULE DAILY 1 HOUR BEFORE FIRST MEAL OF THE DAYAuthorizing Provider: Honorio DANIELLE User: PAYTON HERNANDEZ documented in this encounter Plan of Treatment Upcoming Encounters Date Type Department Care Team (Late st Contact Info) Description 08/27/2023 1:40 PM EDT Office Visit General Internal Medicine [facility] [address] [place] [address] Shirin Danielle MD [address] [place] [address] [address] 11/05/2023 7:15 AM EDT Imaging Radiology [facility] 1st [facility] [place] [address] [place] [address] 03/17/2024 3:30 PM EST Office Visit Neurology [facility] [place] [address] [place] [address] Odalis Holder PA[facility]C [facility] [place] [address] Scheduled Procedures Name Priority Associated Diagnoses Date/Ti me COLONOSCOPY FLEXIBLE PROXIMA L DIAGNOSTIC Recall Special screening for malignant neoplasms, colon Health Maintenance Due Date Last Done Comments Cologuard 2007 Fecal Occult Blood Test 2007 Sigmoidoscopy 2007 Pneumococcal Vaccine: Pediatrics (0 to 5 Years) and At-Risk Patients (6 to 64 Years) (2 of 2 - PPSV23 or PCV20) 10/16/2022 08/21/2022 COVID-19 Vaccine (4 - season) 2022 02/11/2021, 08/11/2020, 07/21/2020 HbA1c 08/19/2023 [...] as of this encounter Visit Diagnoses Diagnosis Gastroesophageal reflux disease without esophagitis Esophageal reflux documented in this encounter Care Teams Sound Effects Supervisor Relationship Specialty Start Date End Date Shirin Danielle MD 200 [place] [address] PCP - General Internal Medicine 03/26/19 documented as of this encounter
--- OUTSIDE RECORDS SUMMARY | 2023-07-09 14:09 | External Medical Summary | Summary of Care ---
Author Name Unknown Organization [facility] Address [address] [place] [address] Phone [phone] Care Team Providers Care Road Driver Name Role Phone Shirin Danielle MD Primary Care Provider [phone] Reason for Visit * Reason Comments Outpatient Testing Encounter Details Date Type Department Care Team (Late st Contact Info) Description 07/01/2023 12:50 PM EDT [facility] [place] [address] [place] [id number] [place], [address] [place] [address] Preoperative general physical examination; Primary osteoarthritis of both knees; Type 2 diabetes mellitus with hemoglobin A1c goal of less than 7.0% ([facility]) Allergies Active Allergy Reactions Criticality Noted Date Comments Propoxyphene N-Acetaminophen 010 Headaches-adverse reaction Dobutamine 01/09/2022 Severe migraine headache Morphine Sulfate 09/29/2009 irritability Oxycodone Hives 01/30/2021 documented as of this encounter (statuses as of 07/01/2023) Medications Medication Sig Dispensed Refills Start Date [...] as of this encounter (statuses as of 07/01/2023) Active Problems Problem Noted Date Diagnosed Date [...] as of this encounter (statuses as of 07/01/2023) Resolved Problems Problem Noted Date Diagnosed Date Resolved Date Body mass index (BMI) of 40. 0 to 44.9 in adult 12/31/2016 12/03/2019 Overview: Per Obesity protocol #1 Chronic cholecystitis 09/29/20092020 Elevated blood pressure, situational 02/13/2007 12/03/2019 ADVANCE DIRECTIVE INFORMATION 10/04/2005 12/03/2019 Overview: Information given to patient Anemia 12/25/2000 12/03/2019 Dyslipidemia, goal to be determined 12/03/2019 documented as of this encounter (statuses as of 07/01/2023) Immunizations Name Administration Dates Next Due COVID-19 [...] General Internal Medicine [facility] [address] [place] [address] [id number] Shirin Danielle MD [facility] [place] [id number] 11/05/2023 7:15 AM EDT Imaging Radiology [facility] 1st [facility] [address] [facility] [place] [address] 03/17/2024 3:30 PM EST Office Visit Neurology [facility] [address] [address] [id number] Odalis Holder PA-C [address] [facility] [place] [address] Pending Results Name Type Priority Associated Diagnoses Date /Time URINALYSIS, REFLEX TO CULTURE (NOT FOR NEUTROPENIC PATIENTS) Lab Routine Preoperative general physical examination Primary osteoarthritis of both knees Type 2 diabetes mellitus with hemoglobin A1c goal of less than 7.0% ([facility]) 07/01/2023 12:32 PM EDT URINALYSIS, REFLEX TO CULTURE (CUP ONLY) Lab Routine Preoperative general physical examination Primary osteoarthritis of both knees Type 2 diabetes mellitus with hemoglobin A1c goal of less than 7.0% ([facility]) 07/01/2023 12:32 PM EDT URINALYSIS, REFLEX TO CULTURE Lab Routine Preoperative general physical examination Primary osteoarthritis of both knees Type 2 diabetes mellitus with hemoglobin A1c goal of less than 7.0% ([facility]) 07/01/2023 12:32 PM EDT Scheduled Procedures Name Priority Associated Diagnoses Date/Ti [...] encounter Visit Diagnoses Diagnosis Preoperative general physical examination Other specified pre-operative examination Primary osteoarthritis of both knees Primary localized osteoarthrosis, lower leg Type 2 diabetes mellitus with hemoglobin A1c goal of less than 7.0% (HCC) documented in this encounter Care Teams Road Driver Relationship Specialty Start Date End Date Shirin Danielle MD 200 [facility] [place] [address] PCP - General Internal Medicine 03/26/19 documented as of this encounter
--- OUTSIDE RECORDS SUMMARY | 2023-07-09 14:09 | External Medical Summary | Summary of Care ---
Author Name Unknown Organization [facility] Address [address] [place] [address] Phone [phone] Care Team Providers Care Inspector Watch Assembly Name Role Phone Shirin Danielle MD Primary Care Provider [phone] Reason for Visit * Reason Onset Date Comments Test Results 07/05/2023 Encounter Details Date Type Department Care Team (Late st Contact Info) Description 07/05/2023 Telephone General Internal Medicine [facility] [address] [place] [address] René Caputo MD 200 [place] [address] Test Results Allergies Active Allergy Reactions Criticality [...] encounter Miscellaneous Notes * Telephone Encounter - Nhi Guajardo LPN [...] PM EDT Office Visit General [facility] [place] [address] [place] [address] Shirin Danielle MD 200 [facility] [place] [address] 11/05/2023 7:15 AM EDT Imaging Radiology [facility] 1st [facility] [address] [place] [address] 03/17/2024 3:30 PM EST Office Visit Neurology [facility] 200 [facility] [place] [address] Odalis Holder PA-C [address] [facility] [address] [place] [address] Scheduled Procedures Name Priority Associated Diagnoses Date/Ti [...] filedocumented as of this encounter Care Teams Inspector Watch Assembly Relationship Specialty Start Date End Date Shirin Danielle MD [address] [facility] [place] [address] PCP - General Internal Medicine 03/26/19 documented as of this encounter
--- OUTSIDE RECORDS SUMMARY | 2023-07-09 14:09 | External Medical Summary ---
Author Name Unknown Address Unknown Organization [facility] [address] [place] [address] Laboratory Report Ordering Provider Test Date Status BILLY PASTOR 07/01/2023 12:32:45 Final Cc DrEllis Observation Date Value Abnormality Reference (Units ) Status Color of Urine by Auto 07/01/2023 12:32:45 Yellow Light Yellow, Yellow, Dark Yellow Final Clarity, Urine 07/01/2023 12:32:45 Slightly Cloudy Abnormal Clear Final Glucose [Mass/volume] in Urine by Automated test strip 07/01/2023 12:32:45 Negative Negative (mg/dL) Final Bilirubin.total [Presence] in Urine by Automated test strip 07/01/2023 12:32:45 Negative Negative Final Ketones [Mass/volume] in Urine by Automated test strip 07/01/2023 12:32:45 Negative Negative (mg/dL) Final Specific gravity, Urine 07/01/2023 12:32:45 >=1.030 1.003-1.030 Final Hemoglobin [Presence] in Urine by Automated test strip 07/01/2023 12:32:45 Negative Negative Final pH, Urine 07/01/2023 12:32:45 5.0 5.0-7.5 (Units) Final Protein [Mass/volume] in Urine by Automated test strip 07/01/2023 12:32:45 Trace Abnormal Negative (mg/dL) Final Urobilinogen [Mass/volume] in Urine by Automated test strip 07/01/2023 12:32:45 0.2 0.2, 1.0 (mg/dL) Final Nitrite [Presence] in Urine by Automated test strip 07/01/2023 12:32:45 Negative Negative Final Leukocyte esterase [Presence] in Urine by Automated test strip 07/01/2023 12:32:45 Small Abnormal Negative Final RBC, Urine 07/01/2023 12:32:45 0-2 0-2 (/HPF) Final WBC, Urine 07/01/2023 12:32:45 10-19 Abnormal 0-2 (/HPF) Final Bacteria [#/area] in Urine sediment by Microscopy high power field 07/01/2023 12:32:45 26-50 Abnormal 0-25 (/HPF) Final Epithelial cells.squamous [#/area] in Urine sediment by Microscopy high power field 07/01/2023 12:32:45 [place] Abnormal None (/HPF) Final CULTURE, URINE - [facility] 07/01/2023 12:32:45 Final Quantitative urine culture t o be performed Performing Location [facility] [address] [place] [address]
--- NOTE | 2023-07-09 14:18 | Anesthesiology Progress Note ---
Date of Service July 09, 2023 Anesthesia Post Procedure Vital Signs Vital Signs: Temp Pulse Resp BP Pulse Ox O2 Del Method 07/09/23 10:12 36.7 C 58 L 20 149/72 H 97 Room Air Transfer of Care Handoff Completed per policy Notes Mental Status: alert / awake / arousable Patient Amnestic to Procedure: Yes Nausea / Vomiting: adequately controlled Pain: adequately controlled Airway Patency, RR, SpO2: stable & adequate BP & HR: stable & adequate Hydration State: stable & adequate Neuraxial Anesthesia: was administered and sensory block is resolving Anesthetic Complications: no major complications apparent and Pt Satisfied with anesthetic care
--- NOTE | 2023-07-09 14:38 | XRay Report ---
XR knee LT 1 or 2V routine HISTORY: 63 years-old Female Surgical Post Op left knee arthroplasty COMPARISON: None TECHNIQUE: 2 views of the left knee FINDINGS: Total joint arthroplasty with patellar resurfacing. Anterior midline skin ophelia with expected posto perative soft tissue swelling and deep tissue air. Surgical drainage catheter. No acute fracture or m alalignment. IMPRESSION: Total joint arthroplasty with expected postoperative changes. ACT 112: Negative or not required by law. The above report was generated using voice recognition software. It may contain grammatical, syntax o r spelling errors. Electronically signed by: Ned Elliott M.D. 07/09/2023 2:36 PM
[2023-07-09] MEDS ORDERED: LORATADINE 10 MG TAB PO PRN (14:58)
[2023-07-09] MEDS ORDERED: FLUTICASONE PROPIONATE NA SPR 16 GM BTL NAE PRN (14:58)
[2023-07-09] MEDS ORDERED: NON-FORMULARY MEDICATION (Iron,Carbonyl-Vitamin C [Vitron-C] 65 mg iron- 125 mg Tablet,Del PO SCH (14:58)
[2023-07-09] MEDS ORDERED: oxyCODONE HCL IR 5 MG TAB (IMMEDIATE RELEASE) PO PRN (14:58)
[2023-07-09] MEDS ORDERED: NITROGLYCERIN SL 0.4 MG/TAB TAB SL PRN (14:58)
[2023-07-09] MEDS ORDERED: NALOXONE HCL 0.4 MG/1 ML VIAL/CARP IV PRN (14:58)
[2023-07-09] MEDS ORDERED: bisacodyL 10 MG SUPP PR PRN (14:58)
[2023-07-09] MEDS ORDERED: POLYETHYLENE (MIRALAX) 17 GM PACK PO PRN (14:58)
[2023-07-09] MEDS ORDERED: diphenhydrAMINE Capsule 25 MG CAP PO PRN (14:58)
[2023-07-09] MEDS ORDERED: PHARMACY GLYCEMIC MGMT CONSULT PRN (14:58)
[2023-07-09] MEDS ORDERED: MAGNESIUM HYDROXIDE SUSP 30 ML UDC PO PRN (14:58)
[2023-07-09] MEDS ORDERED: tiZANidine HCL 4 MG TABLET PO PRN (14:58)
[2023-07-09] MEDS ORDERED: METOCLOPRAMIDE HCL INJ 5 MG/ML 2 ML VIAL IV PRN (14:58)
[2023-07-09] MEDS ORDERED: HYDROmorphone INJ 1 MG/ML SYRINGE IV PRN (14:58)
[2023-07-09] MEDS: ORTHO JOINT ANESTHETIC ONE (14:59)
[2023-07-09] MEDS: TRANEXAMIC ACID 1,000 MG **IV Intra-op IV SCH (15:00)
[2023-07-09] MEDS ORDERED: GLUCOSE 10 TAB/TUBE PO PRN (15:15)
[2023-07-09] MEDS ORDERED: DEXTROSE 50% 50 ML SYRINGE IV PRN (15:15)
[2023-07-09] MEDS ORDERED: CARBOHYDRATES FOR HYPOGLYCEMIA PO PRN (15:15)
[2023-07-09] MEDS ORDERED: GLUCOSE 40% GEL 15 GM TUBE PO PRN (15:15)
[2023-07-09] MEDS ORDERED: GLUCAGON FOR INJ 1 MG VIAL IM PRN (15:15)
[2023-07-09] MEDS: SODIUM CHLORIDE 0.9% 1,000 ML IV SCH (16:29)
[2023-07-09] MEDS: ACETAMINOPHEN 500 MG TAB PO SCH (16:32)
[2023-07-09] MEDS: KETOROLAC TROMETHAMINE 15 MG/ML VIAL IV SCH (16:32)
[2023-07-09] MEDS: INSULIN ASPART PER UNIT CHARGE SC SCH (17:43)
[2023-07-09] MEDS: CLINDAMYCIN/D5W 600 MG/50 ML BAG IV SCH (18:26)
[2023-07-09] MEDS: PARoxetine HCL 20 MG TAB PO SCH (20:21)
[2023-07-09] MEDS: SENNA 8.6 MG TAB PO SCH (20:21)
[2023-07-09] MEDS: PROPRANOLOL HCL LA 80 MG CAPCR PO SCH (20:21)
[2023-07-09] MEDS: DOCUSATE SODIUM 100 MG CAP PO SCH (20:21)
[2023-07-09] MEDS: ASPIRIN 81 MG ECTAB PO SCH (20:22)
[2023-07-10 07:41] LABS: Hemoglobin 10.4 g/dl (12.0-16.0); Mean Corpuscular Hemoglobin 26.7 pg (25.0-34.0); Mean Corpuscular Hgb Conc 31.5 g/dL (32.0-36.0); Mean Corpuscular Volume 84.6 fL (80.0-100.0); Mean Platelet Volume 10.7 fL (9.4-12.4); Platelet Count 232 K/uL (130-400); RDW Coefficient of Variation 14.7 % (11.5-14.5); RDW Standard Deviation 45.6 fL (36.4-46.3); White Blood Count 9.99 K/ul (4.8-10.8)
--- NOTE | 2023-07-10 07:41 | Orthopedic Progress Note ---
Date of Service July 10, 2023 Assessment & Plan (1) History of total left knee replacement: Plan: POD #1 s/p Left TKA pt/ot dvt proph with BALBIR/SCD/ASA plan for d/c home with HHPT Admission and Anticipated Discharge Date Admission Date: July 09, 2023 Subjective POD #1 s/p Left TKA Review of Systems Constitutional: no fever, no chills and no sweats Respiratory: no cough and no dyspnea Cardiovascular: no chest pain and no dyspnea Gastrointestinal: no abdominal pain, no nausea and no vomiting Physical Exam Physical Exam: Vital Signs Temp 36.6 C 07/10/23 03:45 Pulse 74 07/10/23 03:45 Resp 16 07/10/23 03:45 BP 112/70 07/10/23 03:45 Pulse Ox 96 07/10/23 03:45 O2 Del Method Room Air 07/10/23 03:45 O2 Flow Rate 4 07/09/23 14:15 Intake & Output 07/09/23 07/10/23 07/10/23 18:59 06:59 18:59 Intake Total 1835 / 2935 1100 / 2935 Output Total 75 / 90 15 / 90 Balance 1760 / 2845 1085 / 2845 Weight 119.7 kg Intake: IV 635 / 1735 1100 / 1735 Clindamycin/D5 w 600 mg In 50 ml 100 / 100 @ 100 mls/hr I V Q8H SAL Rx#: [id number] Lactated Ringe r's 1,000 ml @ 15 0 / 0 mls/hr IV .Q24 H SAL Rx#: [id number] Sodium Chlorid e 0.9% 1,000 ml @ 1000 / 1000 100 mls/hr IV .Q10H SAL Rx#: [id number] Tranexamic Aci d / 0.7% NaCl 1, 100 / 100 000 mg In 100 ml @ 600 mls/hr IV PREOP ONE R x#:[id number] Vancomycin HCl 1,750 mg In 535 / 535 Sodium Chlorid e 0.9% 500 ml @ 200 mls/hr IV PREOP SAL Rx#: [id number] IV Perioperative 1200 / 1200 Output: Estimated Blood Loss 5 / 5 Drain Output 70 / 85 15 / 85 Left Knee Hemo vac 70 / 85 15 / 85 Other: # Unmeasured Voi ds 1 Weight Measureme nt Method Standing Scale Musculoskeletal: Left Leg: NVDI, calf SNT, negative jacki sign. DP palpable, able to wiggle toes/ankle movement without difficulty. dressing clean dry and intact. Results & Data Vital Signs (Past 12 Hours) Vital Signs Temp Pulse Resp BP Pulse Ox O2 Del Method 07/10/23 03:45 36.6 C 74 16 112/70 96 Room Air 07/09/23 23:48 36.5 C 72 16 116/76 95 Room Air Laboratory Results Laboratory Results WBC 9.99 K/ul (4.8-10.8) 07/10/23 07:15 RBC 3.90 M/uL (4.20-5.40) L 07/10/23 07:15 Hgb 10.4 g/dl (12.0-16.0) L 07/10/23 07:15 Hct 33.0 % (37.0-47.0) L 07/10/23 07:15 MCV 84.6 fL (80.0-100.0) 07/10/23 07:15 MCH 26.7 pg (25.0-34.0) 07/10/23 07:15 MCHC 31.5 g/dL (32.0-36.0) L 07/10/23 07:15 RDW Std Deviation 45.6 fL (36.4-46.3) 07/10/23 07:15 RDW Coeff of Sourav 14.7 % (11.5-14.5) H 07/10/23 07:15 Plt Count 232 K/uL (130-400) 07/10/23 07:15 MPV 10.7 fL (9.4-12.4) 07/10/23 07:15 POC Glucose 138 mg/dl (70-99) H 07/09/23 20:20 Impressions Knee X-Ray 07/09/23 12:38 XR knee LT 1 or 2V routine HISTORY: 63 years-old Female Surgical Post Op left knee arthroplasty COMPARISON: None TECHNIQUE: 2 views of the left knee FINDINGS: Total joint arthroplasty with patellar resurfacing. Anterior midline skin ophelia with expected postoperative soft tissue swelling and deep tissue air. Surgical drainage catheter. No acute fracture or malalignment. IMPRESSION: Total joint arthroplasty with expected postoperative changes. ACT 112: Negative or not required by law. The above report was generated using voice recognition software. It may contain grammatical, syntax or spelling errors. Electronically signed by: Ned Elliott M.D. 07/09/2023 2:36 PM
--- NOTE | 2023-07-10 07:42 | Discharge Summary ---
Date of Service date of discharge: July 10, 2023 date of admission: 07/09/23 Admission HPI Per Admitting Provider Jessi is a 63-year-old female who presented for preop evaluation prior to upcoming left total knee arthroplasty. She has a longstanding history of left knee pain which is gradually worsened to the point that it is now affecting her daily activities, she has tried oral anti-inflammatories, Tylenol as well and has injections with no improvement. X-rays were reviewed which show advanced generative changes to her left knee. At this point time she has failed conservative measures and wishes to proceed with a left total knee replacement Principal Diagnosis left knee arthritis Discharge Exam Vital Signs Temp 36.6 C 07/10/23 03:45 Pulse 74 07/10/23 03:45 Resp 16 07/10/23 03:45 BP 112/70 07/10/23 03:45 Pulse Ox 96 07/10/23 03:45 O2 Del Method Room Air 07/10/23 03:45 O2 Flow Rate 4 07/09/23 14:15 Intake & Output 07/09/23 07/10/23 07/10/23 18:59 06:59 18:59 Intake Total 1835 / 2935 1100 / 2935 Output Total 75 / 90 15 / 90 Balance 1760 / 2845 1085 / 2845 Weight 119.7 kg Intake: IV 635 / 1735 1100 / 1735 Clindamycin/D5w 600 mg In 50 ml 100 / 100 @ 100 mls/hr IV Q8H SAL Rx#: [id number] Lactated Ringer's 1,000 ml @ 15 0 / 0 mls/hr IV .Q24H SAL Rx#: [id number] Sodium Chloride 0.9% 1,000 ml @ 1000 / 1000 100 mls/hr IV .Q10H SAL Rx#: [id number] Tranexamic Acid / 0.7% NaCl 1, 100 / 100 000 mg In 100 ml @ 600 mls/hr IV PREOP ONE Rx#:[id number] Vancomycin HCl 1,750 mg In 535 / 535 Sodium Chloride 0.9% 500 ml @ 200 mls/hr IV PREOP SAL Rx#: [id number] IV Perioperative 1200 / 1200 Output: Estimated Blood Loss 5 / 5 Drain Output 70 / 85 15 / 85 Left Knee Hemovac / / Other: # Unmeasured Voids 1 Weight Measurement Method Standing Scale Musculoskeletal left knee: NVDI, calf SNT, negative jacki sign. DP palpable, able to wiggle toes/ankle movement without difficulty. VISHAL dressing clean dry and intact. expected post-operative bruising noted. Discharge Data Allergies Allergy/AdvReac Type Severity Reaction Status Date / Time oxycodone Allergy Mild Hives Verified 07/09/23 09:49 morphine AdvReac Intermediate per PAT Unverified 07/09/23 09:49 RN, irritability; nausea and vomiting acetaminophen AdvReac Mild Headache Verified 07/09/23 09:56 [From Darvocet-N] amoxicillin AdvReac Mild Vomiting Verified 07/09/23 09:56 dobutamine AdvReac Mild Migraine Verified 07/09/23 09:56 Penicillins AdvReac Mild Vomiting Verified 07/09/23 09:56 propoxyphene AdvReac Mild SEVERE Verified 07/09/23 09:56 HEADACHES Procedures Performed Operation Date: 07/09/23 11:00 Actual Procedures p Left Total Knee Arthroplasty(Left) - Honorio Zepeda DO Ordered Studies 07/09/23 05:00 US guide needle placement Routine Hospital Course (1) History of total left knee replacement: POD #1 s/p Left TKA pt/ot dvt proph with BALBIR/SCD/ASA plan for d/c home with HHPT Total Time Total Time Spent Total Time Spent (In Minutes): 20 Discharge Plan Discharge Items Patient Disposition: Home - Home Health Services Reason For Visit: Oteoarthritis Knee Left Discharge Diagnosis: LEFT TOTAL KNEE REPLACEMENT Activity: Per Instructions section Weightbearing Comment: WBAT w walker Non-emergency contact: Surgeon Call non-emergency contact if: you have any medication questions, your temperature is above 101, your wound has increased redness, your wound has increased drainage and your wound pain has increased Follow-up/Referrals: Shirin Danielle MD [Primary Care Provider] - Diet: Regular Addtl Attending Provider Instructions: ACTIVITY RECOMMENDATIONS: SELF CARE INSTRUCTIONS AFTER TOTAL KNEE REPLACEMENT A. You may need to continue a physical therapy program after discharge from the hospital. There are several options available to you. Your doctor will assist you in selecting the best one for you. 1. An out-patient facility 2 to 3 times a week for therapy or home therapy. 2. Continue working on all exercises taught to you in the hospital. Your goals should be to increase bending of your knee to 90 degrees and beyond and to fully straighten your knee. B. You may progress at your own pace from walking with a walker or crutches to a cane; then to no assistive devices. C. Make walking a part of your daily routine. Be up as much as comfortable with rest periods throughout the day. Rest with leg elevation is very important. Use the ice wrap frequently for the first 3-4 weeks. D. There are no restrictions on activities. You may ride in a car, shop, participate in sharepoint manager and all social activities. E. Wear the long elastic stockings (BALBIR hose) 20 hours a day for 2 weeks after surgery. They can be removed several times a day for laundering and for a bath. F. You may shower, no tub baths until cleared by your doctor. SPECIAL CARE INSTRUCTIONS: VERY IMPORTANT TO READ AND REVIEW A. There are a few signs you need to watch for after you are home. Call [facility] [place] if you notice any of the followin. Increased severe knee pain. Some pain is expected especially when you exercise. 2. Increased swelling in your leg or knee; pain or swelling of the calf muscle in either lower leg. 3. Any fluid drainage from the incision. 4. Shortness of breath or chest pain. B. Please call [facility] at if you have any concerns or questions about your operation or recovery. The doctor or his nurse will return your call promptly. C. You must take antibiotics before dental work, bladder, bowel or other surgery. Your doctor will provide you with a permanent care to carry describing this precaution. IMPORTANT: * REMEMBER TO TAKE ASPIRIN, 81 MG, TWICE DAILY FOR 4 WEEKS UNLESS OTHERWISE DIRECTED. THIS IS YOUR BLOOD THINNER. * HIGH RISK PATIENTS MAY BE PRESCRIBED A STRONGER BLOOD THINNER. THIS WILL BE PROVIDED AT DISCHARGE. * CALL IF INCREASED PAIN, REDNESS, DRAINAGE OR FEVER GREATER THAT 101. * WEAR BALBIR HOSE 20 HOURS PER DAY FOR 2 WEEKS. DRESSING INSTRUCTIONS * VISHAL Dressing- This is a large suction dressing covering your incision. This will help pull any excess drainage from the wound and allow your incision to heal properly. You may shower with this if you can keep the unit outside of the shower. If any bleeding or leakage is noted please call your doctor's office. This will remain on your incision for 7 days and then should be removed. This can be done yourself or by the home nursing staff if applicable. The entire unit is disposable once removed. Once removed, keep incision clean and dry. If redness or drainage is noted, please call your surgeon. IF INCISION IS LEAKING THROUGH DRESSING, CALL THE OFFICE . FOLLOW UP VISIT: If appointment is not already scheduled: Please call [facility] [place] to make a follow-up appointment for 2 weeks after your surgery at . Stand-Alone Forms: My [facility] Medications and DC Order Prescriptions: New celecoxib [Celebrex] 200 mg capsule 200 mg PO BID 30 Days Qty: 60 0RF clindamycin HCl 300 mg capsule 300 mg PO TID 7 Days Qty: 21 0RF aspirin 81 mg tablet,delayed release (DR/EC) 81 mg PO BID 30 Days Qty: 60 0RF acetaminophen 500 mg tablet 1,000 mg PO Q8 21 Days Qty: 126 0RF docusate sodium 100 mg Capsule 100 mg PO BID Qty: 20 0RF oxycodone 5 mg tablet 5 - 10 mg PO Q6H PRN (Reason: pain) Qty: 30 0RF Rx Instructions: ongoing therapy, supervising dr jabari zepeda. max 6 tabs in 24 hours, date of surgery 07/09/23 Continued paroxetine HCl [Paxil] 20 mg tablet 20 mg PO QPM propranolol [Inderal LA] 80 mg capsule,extended release 24 hr 80 mg PO QPM fluticasone propionate [Flonase Allergy Relief] 50 mcg/actuation [place],Amanda pension 2 spray INTRANASAL DAILY PRN (Reason: Nasal Congestion) loratadine [Claritin] 10 mg Tablet 10 mg PO QAM PRN (Reason: ALLERGIES) Vitron-C 65 mg iron- 125 mg Tablet,Delayed Release (Dr/Ec) 1 tab PO 3XWK Rx Instructions: mon, wed, fri tizanidine [Zanaflex] 4 mg Tablet 4 mg PO DAILY PRN (Reason: Muscle Spasm) riboflavin (vitamin B2) [Vitamin B-2] 100 mg Tablet 200 mg PO QAM omeprazole 20 mg Capsule,Delayed Release(Dr/Ec) 20 mg PO QAM polyethylene glycol 3350 [Miralax] 17 gram powder in packet 17 g PO DAILY PRN (Reason: constipation) Qty: 5 0RF metformin 500 mg Tablet 1,500 mg PO QPM magnesium 500 mg Tablet 500 mg PO QAM clindamycin HCl 300 mg capsule 300 mg PO QAM PRN (Reason: dental work) amlodipine 2.5 mg Tablet 2.5 mg PO QAM nitroglycerin 0.4 mg Tablet, Sublingual 0.4 mg sublingual UD PRN (Reason: Chest Pain) rosuvastatin [Crestor] 40 mg Tablet 40 mg PO QAM Discontinued aspirin 81 mg tablet,delayed release (DR/EC) 81 mg PO QAM Admission Data Admit Date/Time: 07/09/23 12:38 Attending Provider: Honorio Zepeda Admit Provider: Honorio Zepeda Primary Care Provider: Shirin Danielle Other Providers: [facility]
[2023-07-10] MEDS: amLODIPine BESYLATE 5 MG TAB PO SCH (07:58)
[2023-07-10] MEDS: MULTIVITAMIN TAB PO SCH (07:58)
[2023-07-10] MEDS: ROSUVASTATIN CALCIUM 20 MG TAB PO SCH (07:59)
[2023-07-10] MEDS: MAGNESIUM OXIDE 400 MG TAB PO SCH (07:59)
[2023-07-10 08:18] LABS: BUN Creatinine Ratio 13.6 (10-20); Calcium 9.1 mg/dl (8.6-10.3); Creatinine Clr Calc Pharmacy 119.9 ml/min; Est GFR (African American) 110.5 ml/min; Est GFR (Non-African American) 95.3 ml/min; Potassium 4.1 mmol/L (3.5-5.1)
[2023-07-10] MEDS ORDERED: NON-FORMULARY MEDICATION (Riboflavin (Vitamin B2) [Vitamin B-2] 100 mg Tablet) PO SCH (09:00)
[2023-07-10] MEDS ORDERED: CeleBREX 200 MG CAP PO SCH (21:00)
== END 2023-07-10 17:16 | disposition home health service (06) ==
LOC: 3W 09:18 → ASU 09:18